=== PATIENT | female | born 1995 | race African-American/Black ===

== ENCOUNTER 2018-10-19 13:00 | Inpatient (IN) | payer OTHER, MEDICAID, SELFPAY ==
[2018-10-19] VITALS (15 sets, daily range): BP systolic 107–158; BP diastolic 55–106; PULSE 66–88; RESP 18–20; TEMP 36.2–36.8; O2SAT 99–100; BMI 18.8
[2018-10-19] MEDS: Lactated Ringers 1,000 ML 50 ML IV ×2 (12:50→20:40)
[2018-10-19] MEDS: Betamethasone/Betamethasone 30 MG/5 ML Vial 12 MG IM (13:04)
[2018-10-19] MEDS: Labetalol 20 MG/4 ML Vial IV (13:07)
[2018-10-19 13:10] LABS: Hematocrit 38.3 % (37-47); Hemoglobin 12.2 g/dl (12.0-15.0); Mean Corp Hgb Conc 31.9 g/gl (32-36); Mean Corpuscular Hgb 27.8 pg (27.0-32.0); Mean Corpuscular Volume 87.2 fL (81-99); Mean Platelet Vol. 11.7 fl (6.2-12.0); Platelet Count 182 K/mm3 (150-450); RBC Distribution Width CV 14.9 % (11.6-14.6); RBC Distribution Width SD 46.4 fl (35.1-43.9); Red Blood Count 4.39 M/mm3 (4.2-5.4); Scan Indicated on CBC? Y/N NO
[2018-10-19 13:20] LABS: International Normalized Ratio 0.9; Prothrombin Time (Protime)PT. 11.9 SECONDS (11.7-14.9)
[2018-10-19 13:21] LABS: Partial Thromboplast Time 33.2 Seconds (24.1-36.2)
[2018-10-19 13:32] LABS: AST(SGOT) 22 U/L (15-37); Alanine Aminotransfer ALT/SGPT 21 U/L (13-56); Creatinine, Serum 0.69 mg/dL (0.55-1.02); EST Glomerular Filtration Rate 113 mL/min (>60); Est Glom Filt Rate - Afr Amer 136 mL/min (>60); Uric Acid 4.2 mg/dL (2.6-6.0)
[2018-10-19] MEDS: Magnesium Sulfate 20 GM/500 ML BAG IV ×2 (13:48→23:28)
[2018-10-19] MEDS: proMETHazine 25 MG/ML Syringe 6.25 MG IV (14:26)
[2018-10-19] MEDS: HYDROmorphone 0.5 MG/0.5 ML SYRINGE IV (14:26)
[2018-10-19 14:57] LABS: Group B Strep DNA By PCR Negative (Negative); Internal Control PASS; Probe Check PASS; Specimen Processing Control PASS
--- NOTE | 2018-10-19 18:22 | PCM.HP.OB ---
History Date of Admission: 10/19/18 Final CHAVEZ: 11/22/18 Final CHAVEZ Source: US <20 weeks Gestational age: 35 Weeks and 1 Days History of this : This is a 23 year-old, at 35-1/7 weeks gestation presented from the office complaining of a headache since last night. It was ranging from 3-6 in intensity. In addition, she had persistently elevated blood pressures in the office. She was sent to labor and delivery for evaluation. She denies any vaginal bleeding or leaking of fluid. She has had good movements. Her past medical history is significant for migraine headaches, marijuana use early in , and an genital herpes, and an abnormal Pap smear. Allergies No Known Allergies Allergy (Verified 09/16/14 01:58) Home Medications: Home Medications Acetaminophen/Codeine #3 [Tylenol#3] 1 tablet PO Q6H PRN PRN #7 tablet 09/16/14 Acetaminophen/Butalbital/Caffe [Fioricet] 1 tablet PO Q4H PRN PRN 10/19/18 Amox/Clavulanate Tablet [Augmentin Tablet] 875 mg PO Q12H 10/19/18 Pnv No.95/Ferrous Fum/Folic AC [ Caplet] 10/19/18 Smoking Status: Never smoker Substance Use Type: Marijuana History Past Pregnancies: Past Pregnancies Delivery Date Name GA/Weeks Outcome Route Weight Infant Gender Labor Length Anesthesia Delivery Location Provider FOB Expected Infant Delivery Method: Spontaneous Vaginal Review of Systems Constitutional: Denies: Chills, Fever Eyes: Denies: Blurred vision HEENT: Reports: Head Aches - bilateral temporal Cardiovascular: Denies: Chest Pain, Edema Respiratory: Denies: Cough, Shortness of Breath Gastrointestinal: Denies: Abdominal Pain Genitourinary: Reports: - - denies vaginal pruritis or burning or recent HSV outbreak. Denies: Dysuria Skin: Denies: Rash Neurological: Denies: Blurred vision, Change in Speech Physical Exam Vitals: Vital Signs Pulse BP 79 131/81 H 10/19/18 16:26 10/19/18 16:26 General: Alert, Cooperative, - - Appears uncomfortable, holding her head when I first arrived in the room HEENT: Negative for: Normocephalic Abdomen: Soft, Non Tender, Non-Distended, Gravid, - - Small for gestational Extremities:: No edema, Deep tendon reflexes - 2+, one beat of clomus Neurological: Cranial nerves II-XII grossly intact Assessment/Plan This is a 23 year-old, 1 para 0 at 35-1/7 weeks gestation with severely elevated blood pressures Patient has a significant headache and severe hypertension, consistent with severe preeclampsia at 35 weeks gestation. Patient was given a dose of betamethasone and a rapid group B strep was collected. She was given IV medications to control her blood pressure followed by oral medications. She was started on magnesium for seizure prophylaxis. heart tones had a normal baseline but minimal variability for most the time she has been here. In addition she has had some variable decelerations and some scalloped-shaped decelerations not a associated with significant contractions. She was made to proceed with Sanders induction of labor. Procedure note: Earlier this afternoon a Sanders was placed over the stylette in the usual sterile fashion into the internal cervical loss. The balloon was inflated to 30 cc and the patient tolerated the procedure well. After the Sanders had been present for several hours, we are unable to initiate Pitocin because of the intermittent variables. Being that we could not reasonably start an induction of labor due to minimal variability and variable decelerations without any significant contractions, I discussed with the patient that I would recommend a section. section was recommended for persistent category 2 tracing remote from delivery with a very unfavorable cervix. Plan was discussed with the patient and her family, consent was signed and they agree with plan. Will remain on magnesium prophylaxis postoperatively and will need to monitor blood pressures closely.
[2018-10-19] MEDS: Cefazolin 2 GM in 0.9% Normal Saline 100 ML IV (18:45)
[2018-10-19] MEDS: Sodium Citrate/Citric Acid 30 ML UDC PO (18:45)
[2018-10-19] MEDS: Oxytocin 30 units/NS 500 ml 30 UNITS/500 ML IV.SOLN 167 UNITS IV (20:03)
--- NOTE | 2018-10-19 20:47 | PCM.OB.CSR ---
Delivery Classification: HANNA Final CHAVEZ: 11/22/18 Final CHAVEZ Source: US <20 weeks Gestational age: 35 Weeks and 1 Days Indications for : - - Severe preeclampsia, category 2 heart tracing remote from delivery Description of Procedure: pre-operative diagnosis: 35-week intrauterine , high risk primigravida, pre-eclampsia with severe features, category 2 heart tracing remote from delivery Postoperative diagnoses: Same plus IUGR The patient was taken to the operating room. She was prepped and draped in the dorsal supine position with a leftward tilt. A Pfannenstiel skin incision was made approximately 2 cm above the symphysis pubis and carried through to underlying layer fascia with the scalpel. The fascia was incised incised in the midline and extended laterally with the Jacobs scissors. The fascia was dissected off the rectus muscles with blunt and sharp dissection. The rectus muscles were in the midline and the peritoneum was entered bluntly. The peritoneal incision was stretched and the bladder blade was placed. The uterine incision was made in a low transverse fashion with the scalpel and extended superiorly and inferiorly with blunt dissection. The amniotic membranes were ruptured bluntly and lightly meconium-stained amniotic fluid returned. The 's head was brought to the incision in the flexed position and delivered without difficulty. The remainder of the was delivered with gentle traction and fundal pressure in the standard fashion. The mouth and nares were bulb suctioned. The cord was clamped and cut as the infant was stimulated. Cord clamping was only delayed 30 seconds because the had good tone and heart rate but was not initially crying vigorously. The was handed off to the waiting nursing staff. The placenta was delivered with fundal massage and gentle traction in the standard fashion. The uterus was exteriorized and cleared of all clots and debris. The cervix was dilated with a ring forcep. The uterine incision was closed with #1 Vicryl in a running locked fashion. A second layer of the same suture was used in an imbricating fashion. The incision was examined and was found to be hemostatic. The uterus was placed back into the peritoneal cavity and hemostasis was again confirmed. The rectus muscles were examined and any bleeding was Bovie cauterized. The parietal peritoneum and rectus muscles were closed en bloc with an 0 Vicryl running suture. The surgical teams outer gloves were then changed. The rectus fascia was examined and any bleeding was Bovie cauterized and the rectus fascia was closed with 1 Vicryl suture in a running standard fashion. The subcutaneous tissue was examining and any bleeding was Bovie cauterized. The skin was closed in a subcuticular fashion by the BRAKE LINER with me present in the labor and delivery suite. I performed the remainder of the procedure with assistance. All sponge, lap, and needle counts were correct. The patient was taken to her room for recovery in a stable condition. Amniotic Membrane Rupture Type: Artificial Amniotic Fluid Description: Lightly stained meconium Placenta Disposition: Sent with transport team Drain: Sanders to straight drain Cord Entanglement: None Cord Vessel Description: 3 Vessels Esitmated Blood Loss (ml): 700 Gender: Female Delayed cord clamping: Yes Pre-op Antibiotic Given: Ancef 2 grams IV x1 Complications: None - Admit VTE Documentation VTE Present on Admission: No VTE Mechan Device Prophylaxis: SCD's VTE Pharm Prophylaxis ordered?: Yes
--- NOTE | 2018-10-19 20:59 | OP.PCM_ITS ---
Delivery Classification: HANNA Final CHAVEZ: 11/22/18 Final CHAVEZ Source: US <20 weeks Gestational age: 35 Weeks and 1 Days Indications for : - - Severe preeclampsia, category 2 heart tracing remote from delivery Description of Procedure: pre-operative diagnosis: 35-week intrauterine , high risk primigravida, pre-eclampsia with severe features, category 2 heart tracing remote from delivery Postoperative diagnoses: Same plus IUGR The patient was taken to the operating room. She was prepped and draped in the dorsal supine position with a leftward tilt. A Pfannenstiel skin incision was made approximately 2 cm above the symphysis pubis and carried through to underlying layer fascia with the scalpel. The fascia was incised incised in the midline and extended laterally with the Jacobs scissors. The fascia was dissected off the rectus muscles with blunt and sharp dissection. The rectus muscles were in the midline and the peritoneum was entered bluntly. The peritoneal incision was stretched and the bladder blade was placed. The uterine incision was made in a low transverse fashion with the scalpel and extended superiorly and inferiorly with blunt dissection. The amniotic membranes were ruptured bluntly and lightly meconium-stained amniotic fluid returned. The 's head was brought to the incision in the flexed position and delivered without difficulty. The remainder of the was delivered with gentle traction and fundal pressure in the standard fashion. The mouth and nares were bulb suctioned. The cord was clamped and cut as the infant was stimulated. Cord clamping was only delayed 30 seconds because the had good tone and heart rate but was not initially crying vigorously. The was handed off to the waiting nursing staff. The placenta was delivered with fundal massage and gentle traction in the standard fashion. The uterus was exteriorized and cleared of all clots and debris. The cervix was dilated with a ring forcep. The uterine incision was closed with #1 Vicryl in a running locked fashion. A second layer of the same suture was used in an imbricating fashion. The incision was examined and was f ound to be hemostatic. The uterus was placed back into the peritoneal cavity and hemostasis was again confirmed. The rectus muscles were examined and any bleeding was Bovie cauterized. The parietal peritoneum and rectus muscles were closed en bloc with an 0 Vicryl running suture. The surgical teams outer gloves were then changed. The rectus fascia was examined and any bleeding was Bovie cauterized and the rectus fascia was closed with 1 Vicryl suture in a running standard fashion. The subcutaneous tissue was examining and any bleeding was Bovie cauterized. The skin was closed in a subcuticular fashion by the [employer] with me present in the labor and delivery suite. I performed the remainder of the procedure with assistance. All sponge, lap, and needle counts were correct. The patient was taken to her room for recovery in a stable condition. Amniotic Membrane Rupture Type: Artificial Amniotic Fluid Description: Lightly stained meconium Placenta Disposition: Sent with transport team Drain: Sanders to straight drain Cord Entanglement: None Cord Vessel Description: 3 Vessels Esitmated Blood Loss (ml): 700 Infant Gender: Female Delayed cord clamping: Yes Pre-op Antibiotic Given: Ancef 2 grams IV x1 Complications: None - Admit VTE Documentation VTE Present on Admission: No VTE Mechan Device Prophylaxis: SCD's VTE Pharm Prophylaxis ordered?: Yes
[2018-10-19] MEDS: Magnesium Sulfate 4gm/100mL 4 GM/100 ML IV.SOLN. IV (21:00)
[2018-10-19] MEDS: Ondansetron 4 MG/2 ML Vial IV (21:30)
[2018-10-19] MEDS: Senna/Docusate Sodium 1 Tablet PO (23:29)
[2018-10-20] VITALS (32 sets, daily range): BP systolic 89–130; BP diastolic 47–85; PULSE 64–78; RESP 14–18; TEMP 36.2–36.9; O2SAT 99–100
[2018-10-20] MEDS: Ketorolac 30 MG/ML Syringe IV ×4 (03:05→22:00)
[2018-10-20 05:27] LABS: Hemoglobin 9.2 g/dl (12.0-15.0); Mean Corp Hgb Conc 32.9 g/gl (32-36); Mean Corpuscular Hgb 28.3 pg (27.0-32.0); Mean Corpuscular Volume 86.2 fL (81-99); Mean Platelet Vol. 11.1 fl (6.2-12.0); Platelet Count 196 K/mm3 (150-450); RBC Distribution Width CV 15.1 % (11.6-14.6); RBC Distribution Width SD 47.7 fl (35.1-43.9); Red Blood Count 3.25 M/mm3 (4.2-5.4); White Blood Count 22.5 K/mm3 (4.4-11.0)
[2018-10-20 05:30] LABS: Scan Indicated on CBC? Y/N NO
[2018-10-20] MEDS: Enoxaparin 40 MG/0.4 ML Syringe SC (06:39)
[2018-10-20] MEDS: Lactated Ringers 1,000 ML 50 ML IV ×2 (09:11→18:25)
[2018-10-20] MEDS: Magnesium Sulfate 20 GM/500 ML BAG IV (09:12)
[2018-10-20] MEDS: Senna/Docusate Sodium 1 Tablet PO ×2 (09:13→22:24)
--- NOTE | 2018-10-20 10:51 | PCM.PN.OB ---
Subjective: pain well controlled, c/o NÚÑEZ but no visual changes. SHe states it feels like the migraines she gets when she is hungry. Denies N/V Now. Denies SOB/CP. - Physical Exam General: Alert, Cooperative, No apparent distress Abdomen: Soft, Non-Distended, Tender - appropriately Extremities: No edema, - - 1+DTRS, no clonus Skin: Incision - bandage w/ small amount sanguinous drainage approx 2 cm in diameter, marked by nursing to monitor Vital Signs Temp Pulse Resp BP Pulse Ox 97.2 F L 77 18 105/61 100 10/20/18 08:03 10/20/18 10:02 10/20/18 10:03 10/20/18 10:02 10/20/18 10:03 Oxygen Delivery Method Room Air Weight: 58.06 kg Body Mass Index (BMI) 18.8 Intake and Output for Last 24 Hours 10/18/18 10/19/18 10/20/18 23:59 23:59 23:59 Intake Total 1637 / 1637 1986 / 1986 Output Total 300 / 300 357 / 357 Balance 1337 / 1337 1630 / 1630 Laboratory Tests Past 24 Hrs 10/19/18 10/19/18 10/19/18 12:50 12:50 12:50 WBC 10.0 RBC 4.39 Hgb 12.2 Hct 38.3 MCV 87.2 MCH 27.8 MCHC 31.9 L RDW 14.9 H RDW Differential 46.4 H Plt Count 182 MPV 11.7 PT 11.9 INR 0.9 APTT 33.2 Creatinine 0.69 Est GFR (MDRD) Af Amer 136 Est GFR (MDRD) Non-Af 113 Uric Acid 4.2 AST 22 ALT 21 Group B Strep DNA Specimen Comment Blood Type Antibody Screen 10/19/18 10/19/18 10/20/18 12:50 13:50 05:03 WBC 22.5 H RBC 3.25 L Hgb 9.2 L Hct 28.0 L MCV 86.2 MCH 28.3 MCHC 32.9 RDW 15.1 H RDW Differential 47.7 H Plt Count 196 MPV 11.1 PT INR APTT Creatinine Est GFR (MDRD) Af Amer Est GFR (MDRD) Non-Af Uric Acid AST ALT Group B Strep DNA Negative Specimen Comment Not Reportable Blood Type O POSITIVE Antibody Screen NEGATIVE Medical Necessity - Tobacco Use Smoking Status: Never smoker Assessment/Plan POD#1 S/p primary c/s for 35-week with preeclampsia with severe features. Category 2 heart tracing remote from delivery. Severe IUGR. Since blood pressures are stabilized postoperatively. She is not requiring any meds at this time. We will continue magnesium until 24 hours after delivery. Patient will work on breast-feeding for the infant that is been transferred to [facility] due to low weight less than 1500 g. May advance diet.
--- NOTE | 2018-10-20 14:40 | NURSING ---
pt stood and marched in place at the edge of the bed. tolerated well.
--- NOTE | 2018-10-20 17:15 | NURSING ---
Dr Kitchen at bedside evaluating patient and low pressures and urine output. Plan to check CBC and give 1 Liter bolus.
--- NOTE | 2018-10-20 17:16 | PCM.PN.OB ---
Subjective: Patient denies complaints - Physical Exam General: Alert, Oriented x3 Abdomen: Soft - softly distended, appropriately tender, ff mid & below umb Vital Signs Temp Pulse Resp BP Pulse Ox 97.4 F L 75 18 89/47 L 99 10/20/18 16:00 10/20/18 17:03 10/20/18 17:03 10/20/18 17:03 10/20/18 17:03 Oxygen Delivery Method Room Air Weight: 128 lb Body Mass Index (BMI) 18.8 Intake and Output for Last 24 Hours 10/18/18 10/19/18 10/20/18 23:59 23:59 23:59 Intake Total 1637 / 1637 3333 / 3333 Output Total 300 / 300 567 / 567 Balance 1337 / 1337 2766 / 2766 Laboratory Tests Past 24 Hrs 10/20/18 05:03 WBC 22.5 H RBC 3.25 L Hgb 9.2 L Hct 28.0 L MCV 86.2 MCH 28.3 MCHC 32.9 RDW 15.1 H RDW Differential 47.7 H Plt Count 196 MPV 11.1 Medical Necessity - Tobacco Use Smoking Status: Never smoker Assessment/Plan PPD#1 with severe preE Hypotension - suspect dehydration & magnesium sulfate related. Will give 1L fluid bolus and check CBC.
[2018-10-20] MEDS: Lactated Ringers 1,000 ML 999 ML IV (17:20)
[2018-10-20 17:57] LABS: Hematocrit 18.3 % (37-47); Mean Corp Hgb Conc 31.1 g/gl (32-36); Mean Corpuscular Hgb 27.9 pg (27.0-32.0); Mean Corpuscular Volume 89.7 fL (81-99); Platelet Count 162 K/mm3 (150-450); RBC Distribution Width SD 46.1 fl (35.1-43.9); Red Blood Count 2.04 M/mm3 (4.2-5.4); White Blood Count 20.6 K/mm3 (4.4-11.0)
--- NOTE | 2018-10-20 18:00 | NURSING ---
Call placed to Dr Kitchen to inform of low HGB of 5.7. Order received to give 2 units of PRBCs.
[2018-10-20 18:02] LABS: Hemoglobin 5.7 g/dl (12.0-15.0); Scan Indicated on CBC? Y/N NO
--- NOTE | 2018-10-20 21:00 | NURSING ---
Pt assisted to sitting on side of bed, pt abd distended, tender, with hypoative BS. Pt has low bp when sitting up 81/51, pt burped mult times and reports some relief. Pt then assisted back into bed in semifowlers position and bp back up 111/69. 1st unit of blood continues to be infused.
[2018-10-21] VITALS (12 sets, daily range): BP systolic 109–130; BP diastolic 63–79; PULSE 76–110; RESP 14–20; TEMP 36.6–37.4; O2SAT 99–100; BMI 21.6
--- NOTE | 2018-10-21 01:35 | RAD_ITS ---
STUDY: X-RAY - ABDOMEN/PELVIS REASON FOR EXAM: Female, 23 years old. Abdominal distention. TECHNIQUE: Single AP view of the abdomen / pelvis. COMPARISON: None. FINDINGS: Normal visualized lung bases. There is a paralytic ileus of the small intestine with mild gaseous distention. There is no demonstrated free abdominal air. The visualized liver, spleen and kidneys are grossly normal in size and morphology. Normal soft tissue structures. Normal visualized osseous structures. RAD/Abdomen Single View (Portable) IMPRESSION: There is a paralytic ileus of the small intestine with mild gaseous distention. Electronically Signed: Namrata Anaya MD at 2:03 EST Tel , Service support ,
--- NOTE | 2018-10-21 01:36 | NURSING ---
dr shine called with concerns of more abd distension, hypoactive BS and reports of increased painincrease pain. cbc stat, KUB of abd, dilaudid x1.
--- NOTE | 2018-10-21 01:50 | NURSING ---
KUB performed at bedside
--- NOTE | 2018-10-21 02:15 | NURSING ---
Unable to obtain labs, lab dept called to draw.
[2018-10-21] MEDS: HYDROmorphone 0.5 MG/0.5 ML SYRINGE IV ×4 (02:20→20:09)
[2018-10-21] MEDS: Lactated Ringers 1,000 ML 75 ML IV (02:21)
--- NOTE | 2018-10-21 02:27 | NURSING ---
Lab dept here to draw blood.
[2018-10-21 02:40] LABS: Hematocrit 23.3 % (37-47); Hemoglobin 7.8 g/dl (12.0-15.0); Mean Corp Hgb Conc 33.5 g/gl (32-36); Mean Corpuscular Hgb 29.2 pg (27.0-32.0); Mean Corpuscular Volume 87.3 fL (81-99); Mean Platelet Vol. 11.1 fl (6.2-12.0); Platelet Count 150 K/mm3 (150-450); RBC Distribution Width CV 14.6 % (11.6-14.6); RBC Distribution Width SD 45.8 fl (35.1-43.9); Red Blood Count 2.67 M/mm3 (4.2-5.4); Scan Indicated on CBC? Y/N NO; White Blood Count 21.9 K/mm3 (4.4-11.0)
[2018-10-21 02:59] LABS: ALB/GLOB Ratio 0.7 RATIO (0.9-2.4); AST(SGOT) 26 U/L (15-37); Alanine Aminotransfer ALT/SGPT 15 U/L (13-56); Alkaline Phosphatase 147 U/L (45-117); Anion Gap 8 (5-15); BUN 20 mg/dL (7-18); BUN/Creat Ratio 20.5 RATIO (10-20); Calcium,Total 5.9 mg/dL (8.5-10.1); Chloride 99 mmol/L (98-107); Creatinine, Serum 0.98 mg/dL (0.55-1.02); EST Glomerular Filtration Rate 76 mL/min (>60); Est Glom Filt Rate - Afr Amer 92 mL/min (>60); Estimated Creatinine Clearance 83.23 ml/min; Globulin 2.8 g/dL (2.2-4.2); Glucose 110 mg/dL (74-106); Potassium 5.5 mmol/L (3.5-5.1); Protein, Total 4.8 g/dL (6.4-8.2); Sodium Level 127 mmol/L (136-145)
[2018-10-21] MEDS: Ketorolac 30 MG/ML Syringe IV ×3 (03:49→15:46)
[2018-10-21] MEDS: 0.9% Normal Saline 1,000 ML 125 ML IV ×3 (03:49→20:09)
--- NOTE | 2018-10-21 04:33 | EKG12_ITS ---
Test Reason : HYPERKALEMIA Blood Pressure : / mmHG Vent. Rate : 082 BPM Atrial Rate : 082 BPM P-R Int : 158 ms QRS Dur : 072 ms QT Int : 384 ms P-R-T Axes : 063 025 026 degrees QTc Int : 448 ms Normal sinus rhythm Normal ECG No previous ECGs available Confirmed by YUSUF BROWN, BABAR ([id number]), news editor REJI CORRAL ([id number]) on 10/27/2018 1:14:10 PM Referred By: Lucy Valenzuela Confirmed By:BABAR GOLDBERG MD
--- NOTE | 2018-10-21 04:36 | PCM.PN.HOSP ---
Subjective: This is a 23-year-old female who is 32 hours post . Her was complicated with preeclampsia. Also patient had hemoglobin of 5.7 for which she received packed red blood cells. Because of electrolyte abnormalities internal medicine service was consulted. Notably patient's sodium was 127 for which CIVILIAN JAIL OFFICER started patient on normal saline at 125 mL's per hour. Her potassium was 5.5. Her calcium was 5.9. Her bicarbonate was 20. Vitals/I&O's: Vital Signs Temp Pulse Resp BP Pulse Ox 98 F 80 20 H 110/69 100 10/21/18 02:04 10/21/18 02:04 10/21/18 02:04 10/21/18 02:04 10/20/18 23:50 Oxygen Delivery Method Room Air Weight: 58.06 kg Body Mass Index (BMI) 18.8 Intake and Output for Last 24 Hours 10/19/18 10/20/18 10/21/18 23:59 23:59 23:59 Intake Total 1637 / 1637 5678 / 5678 850 / 850 Output Total 300 / 300 874 / 874 120 / 120 Balance 1337 / 1337 4804 / 4804 730 / 730 General: Alert, Oriented x3, Cooperative HEENT: Atraumatic, PERRLA, EOMI, Normocephalic Neck: Supple, No JVD, Negative Carotid Bruits Lungs: Clear to auscultation, Normal air movement Cardiovascular: Regular rate, No murmurs Abdomen: Hypoactive Bowel Sounds, Distended, Tender Extremities: No edema, Capillary Refill Less than 3 Seconds Skin: No rashes, No breakdown Musculoskeletal: No Tenderness to Palpation of Joints or Extremities Neurological: Neuro grossly intact Psych/Mental Status: Normal Affect, Appropriate Laboratory Results 10/19/18 12:50: Crossmatch See Detail 10/20/18 05:03: WBC 22.5 H, RBC 3.25 L, Hgb 9.2 L, Hct 28.0 L, MCV 86.2, MCH 28.3, MCHC 32.9, RDW 15.1 H, RDW Differential 47.7 H, Plt Count 196, MPV 11.1 10/20/18 17:25: WBC 20.6 H, RBC 2.04 L, Hgb 5.7 L*, Hct 18.3 L, MCV 89.7, MCH 27.9, MCHC 31.1 L, RDW 15.0 H, RDW Differential 46.1 H, Plt Count 162, MPV 11.0 10/21/18 02:30: WBC 21.9 H, RBC 2.67 L, Hgb 7.8 L, Hct 23.3 L, MCV 87.3, MCH 29.2, MCHC 33.5, RDW 14.6, RDW Differential 45.8 H, Plt Count 150, MPV 11.1 10/21/18 02:30: Sodium 127 L, Potassium 5.5 H, Chloride 99, Carbon Dioxide 20.0 L, Anion Gap 8, BUN 20 H, Creatinine 0.98, Estim Creat Clear Calc 83.23, Est GFR (MDRD) Af Amer 92, Est GFR (MDRD) Non-Af 76, BUN/Creatinine Ratio 20.5 H, Glucose 110 H, Calcium 5.9 L*, Total Bilirubin 0.50, AST 26, ALT 15, Alkaline Phosphatase 147 H, Total Protein 4.8 L, Albumin 2.0 L, Globulin 2.8, Albumin/Globulin Ratio 0.7 L Current Medications Acetaminophen (Tylenol) 1,000 mg PO Q8H PRN PRN PRN Reason: MILD PAIN (1-3/10) Bisacodyl (Dulcolax) 10 mg RECTAL UD PRN PRN Reason: If no BM Docusate Sodium (Colace) 100 mg PO BID [facility] Last Admin: 10/20/18 22:20 Dose: Not Given Enoxaparin Sodium (Lovenox) 40 mg SC DAILY@0600 [facility] Last Admin: 10/20/18 06:39 Dose: 40 mg Hydrocortisone (Hytone) 1 applic TOPICAL TID PRN PRN; Protocol PRN Reason: Discomfort Hydromorphone HCl (Dilaudid Inj) 0.5 mg IV Q3H PRN PRN PRN Reason: SEVERE PAIN (6-10/10) Sodium Chloride () 500 mls @ 15 mls/hr IV .[id number] [facility] Last Admin: 10/20/18 19:15 Dose: 15 mls/hr Sodium Chloride () 1,000 mls @ 125 mls/hr IV .Q8H [facility] Last Admin: 10/21/18 03:49 Dose: 125 mls/hr Calcium Gluconate 2 gm/ (Dextrose) 120 mls @ 60 mls/hr IV X1 ONE Stop: 10/21/18 06:31 Ketorolac Tromethamine (Toradol) 30 mg IV Q6H [facility] Stop: 10/21/18 21:01 Last Admin: 10/21/18 03:49 Dose: 30 mg Methylergonovine Maleate (Methergine) 0.2 mg IM X1 PRN PRN Reason: Bleeding Metoclopramide HCl (Reglan) 10 mg IV Q4H PRN PRN PRN Reason: Nausea/Vomiting Naproxen (Naprosyn) 250 - 500 mg PO Q8H PRN PRN PRN Reason: Mild Pain (1-3/10) Ondansetron HCl (Zofran) 4 mg IV Q4H PRN PRN PRN Reason: Nausea Last Admin: 10/19/18 21:30 Dose: 4 mg Oxycodone HCl (Oxyir) 5 - 10 mg PO Q4H PRN PRN PRN Reason: MOD-SEVERE PAIN (4-10/10) Promethazine HCl (Phenergan) 12.5 mg IV Q4H PRN PRN PRN Reason: NAUSEA/VOMITING Senna/Docusate Sodium (Senokot-S, Tracie-Colace) 1 tablet PO BID [facility] Last Admin: 10/20/18 22:24 Dose: 1 tablet Simethicone (Mylicon) 80 mg PO P[facility]S PRN PRN Reason: Indigestion/stomach pain Last Admin: 10/20/18 14:10 Dose: 80 mg Sodium Bicarbonate (Sodium Bicarbonate 8.4%) 50 meq IV X1 ONE Stop: 10/21/18 04:33 Sodium Chloride () 5 - 15 ml IV UD PRN PRN Reason: SALINE FLUSH Medical Necessity - Tobacco Use Smoking Status: Never smoker Assessment/Plan Patient is a 23-year-old female 32 hours with electrolyte abnormalities; anemia and paralytic ileus. Hyponatremia Sodium is 127. Patient appears euvolemic. We will check osmolality of urine and serum Urine sodium, serum cortisol and TSH ordered. Continue normal saline infusion at 125 mLs per hour. Correct sodium by 8-10 mEq in 24 hours. Repeat BMP at noon of 10/21/2018. Hyperkalemia Potassium was 5.5. Will order 50meq of bicarbonate especially as her bicarbonate is mildly low. Stat EKG Calcium gluconate ordered for hypocalcemia but should help Repeat BMP as above Hypocalcemia Her calcium was 5.9. Albumin is 2.0. Corrected for albumin and calcium is 7.5. Calcium gluconate ordered. Discussed with CIVILIAN JAIL OFFICER doctor. Patient be transferred to PCU for telemetry monitoring. Repeat BMP as above. Anemia Received blood transfusion. Management by OB. Paralytic ileus n.p.o. and NG tube per OBGYN. I agree. DVT prophylaxis Patient on Lovenox Code Visit Inpatient E&M: 43150 Subs Hosp L3
--- NOTE | 2018-10-21 04:40 | PN_ITS ---
Subjective: This is a 23-year-old female who is 32 hours post . Her was complicated with preeclampsia. Also patient had hemoglobin of 5.7 for which she received packed red blood cells. Because of electrolyte abnormalities internal medicine service was consulted. Notably patient's sodium was 127 for which CRANE MANAGER started patient on normal saline at 125 mL's per hour. Her potassium was 5.5. Her calcium was 5.9. Her bicarbonate was 20. Vitals/I&O's: Vital Signs Temp Pulse Resp BP Pulse Ox 98 F 80 20 H 110/69 100 10/21/18 02:04 10/21/18 02:04 10/21/18 02:04 10/21/18 02:04 10/20/18 23:50 Oxygen Delivery Method Room Air Weight: 58.06 kg Body Mass Index (BMI) 18.8 Intake and Output for Last 24 Hours 10/19/18 10/20/18 10/21/18 23:59 23:59 23:59 Intake Total 1637 / 1637 5678 / 5678 850 / 850 Output Total 300 / 300 874 / 874 120 / 120 Balance 1337 / 1337 4804 / 4804 730 / 730 General: Alert, Oriented x3, Cooperative HEENT: Atraumatic, PERRLA, EOMI, Normocephalic Neck: Supple, No JVD, Negative Carotid Bruits Lungs: Clear to auscultation, Normal air movement Cardiovascular: Regular rate, No murmurs Abdomen: Hypoactive Bowel Sounds, Distended, Tender Extremities: No edema, Capillary Refill Less than 3 Seconds Skin: No rashes, No breakdown Musculoskeletal: No Tenderness to Palpation of Joints or Extremities Neurological: Neuro grossly intact Psych/Mental Status: Normal Affect, Appropriate Laboratory Results 10/19/18 12:50: Crossmatch See Detail 10/20/18 05:03: WBC 22.5 H, RBC 3.25 L, Hgb 9.2 L, Hct 28.0 L, MCV 86.2, MCH 28.3, MCHC 32.9, RDW 15.1 H, RDW Differential 47.7 H, Plt Count 196, MPV 11.1 10/20/18 17:25: WBC 20.6 H, RBC 2.04 L, Hgb 5.7 L*, Hct 18.3 L, MCV 89.7, MCH 27.9, MCHC 31.1 L, RDW 15.0 H, RDW Differential 46.1 H, Plt Count 162, MPV 11.0 10/21/18 02:30: WBC 21.9 H, RBC 2.67 L, Hgb 7.8 L, Hct 23.3 L, MCV 87.3, MCH 29.2, MCHC 33.5, RDW 14.6, RDW Differential 45.8 H, Plt Count 150, MPV 11.1 10/21/18 02:30: Sodium 127 L, Potassium 5.5 H, Chloride 99, Carbon Dioxide 20.0 L, Anion Gap 8, BUN 20 H, Creatinine 0.98, Estim Creat Clear Calc 83.23, Est GFR (MDRD) Af Amer 92, Est GFR (MDRD) Non-Af 76, BUN/Creatinine Ratio 20.5 H, Glucose 110 H, Calcium 5.9 L*, Total Bilirubin 0.50, AST 26, ALT 15, Alkaline Phosphatase 147 H, Total Protein 4.8 L, Albumin 2.0 L, Globulin 2.8, Albumin/Globulin Ratio 0.7 L Current Medications Acetaminophen (Tylenol) 1,000 mg PO Q8H PRN PRN PRN Reason: MILD PAIN (1-3/10) Bisacodyl (Dulcolax) 10 mg RECTAL UD PRN PRN Reason: If no BM Docusate Sodium (Colace) 100 mg PO BID [facility] Last Admin: 10/20/18 22:20 Dose: Not Given Enoxaparin Sodium (Lovenox) 40 mg SC DAILY@0600 [facility] Last Admin: 10/20/18 06:39 Dose: 40 mg Hydrocortisone (Hytone) 1 applic TOPICAL TID PRN PRN; Protocol PRN Reason: Discomfort Hydromorphone HCl (Dilaudid Inj) 0.5 mg IV Q3H PRN PRN PRN Reason: SEVERE PAIN (6-10/10) Sodium Chloride () 500 mls @ 15 mls/hr IV .[id number] [facility] Last Admin: 10/20/18 19:15 Dose: 15 mls/hr Sodium Chloride () 1,000 mls @ 125 mls/hr IV .Q8H [facility] Last Admin: 10/21/18 03:49 Dose: 125 mls/hr Calcium Gluconate 2 gm/ (Dextrose) 120 mls @ 60 mls/hr IV X1 ONE Stop: 10/21/18 06:31 Ketorolac Tromethamine (Toradol) 30 mg IV Q6H [facility] Stop: 10/21/18 21:01 Last Admin: 10/21/18 03:49 Dose: 30 mg Methylergonovine Maleate (Methergine) 0.2 mg IM X1 PRN PRN Reason: Bleeding Metoclopramide HCl (Reglan) 10 mg IV Q4H PRN PRN PRN Reason: Nausea/Vomiting Naproxen (Naprosyn) 250 - 500 mg PO Q8H PRN PRN PRN Reason: Mild Pain (1-3/10) Ondansetron HCl (Zofran) 4 mg IV Q4H PRN PRN PRN Reason: Nausea Last Admin: 10/19/18 21:30 Dose: 4 mg Oxycodone HCl (Oxyir) 5 - 10 mg PO Q4H PRN PRN PRN Reason: MOD-SEVERE PAIN (4-10/10) Promethazine HCl (Phenergan) 12.5 mg IV Q4H PRN PRN PRN Reason: NAUSEA/VOMITING Senna/Docusate Sodium (Senokot-S, Tracie-Colace) 1 tablet PO BID [facility] Last Admin: 10/20/18 22:24 Dose: 1 tablet Simethicone (Mylicon) 80 mg PO PCHS PRN PRN Reason: Indigestion/stomach pain Last Admin: 10/20/18 14:10 Dose: 80 mg Sodium Bicarbonate (Sodium Bicarbonate 8.4%) 50 meq IV X1 ONE Stop: 10/21/18 04:33 Sodium Chloride () 5 - 15 ml IV UD PRN PRN Reason: SALINE FLUSH Medical Necessity - Tobacco Use Smoking Status: Never smoker Assessment/Plan Patient is a 23-year-old female 32 hours with electrolyte abnormalities; anemia and paralytic ileus. Hyponatremia Sodium is 127. Patient appears euvolemic. We will check osmolality of urine and serum Urine sodium, serum cortisol and TSH ordered. Continue normal saline infusion at 125 mLs per hour. Correct sodium by 8-10 mEq in 24 hours. Repeat BMP at noon of 10/21/2018. Hyperkalemia Potassium was 5.5. Will order 50meq of bicarbonate especially as her bicarbonate is mildly low. Stat EKG Calcium gluconate ordered for hypocalcemia but should help Repeat BMP as above Hypocalcemia Her calcium was 5.9. Albumin is 2.0. Corrected for albumin and calcium is 7.5. Calcium gluconate ordered. Discussed with CRANE MANAGER doctor. Patient be transferred to PCU for telemetry monitoring. Repeat BMP as above. Anemia Received blood transfusion. Management by OB. Paralytic ileus n.p.o. and NG tube per OBGYN. I agree. DVT prophylaxis Patient on Lovenox Code Visit Inpatient E&M: 60214 Subs Hosp L3
--- NOTE | 2018-10-21 05:13 | PCM.PN.OB ---
Subjective: Patient reports abdominal discomfort. No flatus. - Physical Exam General: Alert, Oriented x3 Abdomen: Hypoactive Bowel Sounds - minimal bowel sounds, abdomen with increased distension but remains soft & appropriately tender; no rebound or guarding Extremities: No edema, No Calf Tenderness, Diminished Peripheral Pulses Psych/Mental Status: Normal Affect Vital Signs Temp Pulse Resp BP Pulse Ox 98.1 F 78 18 109/64 100 10/21/18 05:11 10/21/18 05:11 10/21/18 05:11 10/21/18 05:11 10/21/18 05:11 Oxygen Delivery Method Room Air Weight: 128 lb Body Mass Index (BMI) 18.8 Intake and Output for Last 24 Hours 10/19/18 10/20/18 10/21/18 23:59 23:59 23:59 Intake Total 1637 / 1637 5678 / 5678 1133 / 1133 Output Total 300 / 300 874 / 874 180 / 180 Balance 1337 / 1337 4804 / 4804 953 / 953 Laboratory Tests Past 24 Hrs 10/19/18 10/20/18 10/20/18 12:50 05:03 17:25 WBC 22.5 H 20.6 H RBC 3.25 L 2.04 L Hgb 9.2 L 5.7 L* Hct 28.0 L 18.3 L MCV 86.2 89.7 MCH 28.3 27.9 MCHC 32.9 31.1 L RDW 15.1 H 15.0 H RDW Differential 47.7 H 46.1 H Plt Count 196 162 MPV 11.1 11.0 Sodium Potassium Chloride Carbon Dioxide Anion Gap BUN Creatinine Estim Creat Clear Calc Est GFR (MDRD) Af Amer Est GFR (MDRD) Non-Af BUN/Creatinine Ratio Glucose Calcium Total Bilirubin AST ALT Alkaline Phosphatase Total Protein Albumin Globulin Albumin/Globulin Ratio Crossmatch See Detail 10/21/18 10/21/18 02:30 02:30 WBC 21.9 H RBC 2.67 L Hgb 7.8 L Hct 23.3 L MCV 87.3 MCH 29.2 MCHC 33.5 RDW 14.6 RDW Differential 45.8 H Plt Count 150 MPV 11.1 Sodium 127 L Potassium 5.5 H Chloride 99 Carbon Dioxide 20.0 L Anion Gap 8 BUN 20 H Creatinine 0.98 Estim Creat Clear Calc 83.23 Est GFR (MDRD) Af Amer 92 Est GFR (MDRD) Non-Af 76 BUN/Creatinine Ratio 20.5 H Glucose 110 H Calcium 5.9 L* Total Bilirubin 0.50 AST 26 ALT 15 Alkaline Phosphatase 147 H Total Protein 4.8 L Albumin 2.0 L Globulin 2.8 Albumin/Globulin Ratio 0.7 L Crossmatch Medical Necessity - Tobacco Use Smoking Status: Never smoker Assessment/Plan 23yo female POD#2 Severe preE - s/p Mg, BP's normal. Heme - HDS, appropriate Hb increase s/p 2 units PRBC's. - UOP at least 30ml per hour. GI - ileus confirmed on KUB. Plan for NG placement. Electrolytes - consulted for hyponatremia, hyperkalemia & hypocalcemia. Patient switched to NS. Transferring patient to PCU to administer sodium bicarbonate & calcium gluconate. Additional labs ordered by . Plan of care discussed with patient.
--- NOTE | 2018-10-21 05:20 | NURSING ---
Cartoon Animator gives bed assignment of [facility] 121
--- NOTE | 2018-10-21 05:35 | NURSING ---
Called PCU to give report on pt, PCU charge nurse states that PCU nurse will call back for report.
--- NOTE | 2018-10-21 05:54 | NURSING ---
report given to Aniya DENTON
[2018-10-21] MEDS: Enoxaparin 40 MG/0.4 ML Syringe SC (06:01)
--- NOTE | 2018-10-21 06:10 | NURSING ---
Pt transfered to PCU 121 via bed with nurse. Pt's mother present during transfer.
--- NOTE | 2018-10-21 06:15 | NURSING ---
This RN taking over patient care at this time
[2018-10-21 06:20] LABS: Thyroid Stim Hormone (TSH) 3.01 uIU/mL (0.358-3.74)
--- NOTE | 2018-10-21 06:23 | RAD_ITS ---
STUDY: X-RAY - ABDOMEN/PELVIS REASON FOR EXAM: Female, 23 years old. Nasogastric tube placement. TECHNIQUE: Single AP view of the abdomen / pelvis. COMPARISON: Comparison is made with prior examination done earlier today. FINDINGS: Nasogastric tube is in situ. The tip lies in the left upper quadrant presumably within the stomach. There is less gaseous distention of the stomach at this time. The visualized liver, spleen and kidneys are grossly normal in size and morphology. Normal soft tissue structures. Normal visualized osseous structures. RAD/Abdomen Single View IMPRESSION: The tip of the nasogastric tube is within the left upper quadrant presumably within the body of the stomach. Electronically Signed: Fawad Lopez MD at 8:31 EST , Service support ,
[2018-10-21] MEDS: 0.9% Saline Lock 10 ML Syringe IV (06:53)
[2018-10-21] MEDS: Sodium Bicarbonate 8.4% 50 ML Syringe 50 MEQ IV (07:09)
[2018-10-21 07:51] LABS: Osmolality, Serum 272 mOsm/KG (275-295)
--- NOTE | 2018-10-21 09:53 | NURSING ---
0935 abd firm unable to palpate deep enough to locate fundus; lochia scant; pt has all supplies to pump- pump set up and explained to pt and pts mother. pt does not want to pump at this time.
[2018-10-21 09:58] LABS: Urine Sodium 8 mmol/L (Not Establ.)
[2018-10-21 10:04] LABS: Osmolality, Urine 341 mOsm/KG
--- NOTE | 2018-10-21 12:12 | PCM.PN.HOSP ---
Patient Problems: Active and Suspected Problems Hypocalcemia (Acute) Hyperkalemia (Acute) Hyponatremia (Acute) Ileus (Acute) Acute blood loss anemia (Acute) Subjective: Denies any complaints. Vitals/I&O's: Vital Signs Temp Pulse Resp BP Pulse Ox 36.8 C 76 14 118/63 100 10/21/18 10:30 10/21/18 10:30 10/21/18 10:30 10/21/18 10:30 10/21/18 10:30 Oxygen Delivery Method Room Air Weight: 66.5 kg Body Mass Index (BMI) 21.6 Intake and Output for Last 24 Hours 10/19/18 10/20/18 10/21/18 23:59 23:59 23:59 Intake Total 1637 / 1637 5678 / 5678 1133 / 1133 Output Total 300 / 300 874 / 874 180 / 180 Balance 1337 / 1337 4804 / 4804 953 / 953 General: Alert, No apparent distress HEENT: Atraumatic, Normocephalic, - - NG in place. Neck: No Nodes, Thyroid Normal Size and Texture Lungs: Clear to auscultation, Normal air movement, No rhonchi, No wheeze Cardiovascular: Regular rate, Regular Rhythm, Normal S1, Normal S2, No murmurs Abdomen: Non Tender, Hypoactive Bowel Sounds, Distended Extremities: No edema, No Calf Tenderness Psych/Mental Status: Appropriate, Flat Affect Laboratory Results 10/19/18 12:50: Crossmatch See Detail 10/20/18 17:25: WBC 20.6 H, RBC 2.04 L, Hgb 5.7 L*, Hct 18.3 L, MCV 89.7, MCH 27.9, MCHC 31.1 L, RDW 15.0 H, RDW Differential 46.1 H, Plt Count 162, MPV 11.0 10/21/18 02:30: WBC 21.9 H, RBC 2.67 L, Hgb 7.8 L, Hct 23.3 L, MCV 87.3, MCH 29.2, MCHC 33.5, RDW 14.6, RDW Differential 45.8 H, Plt Count 150, MPV 11.1 10/21/18 02:30: Sodium 127 L, Potassium 5.5 H, Chloride 99, Carbon Dioxide 20.0 L, Anion Gap 8, BUN 20 H, Creatinine 0.98, Estim Creat Clear Calc 83.23, Est GFR (MDRD) Af Amer 92, Est GFR (MDRD) Non-Af 76, BUN/Creatinine Ratio 20.5 H, Glucose 110 H, Calcium 5.9 L*, Total Bilirubin 0.50, AST 26, ALT 15, Alkaline Phosphatase 147 H, Total Protein 4.8 L, Albumin 2.0 L, Globulin 2.8, Albumin/Globulin Ratio 0.7 L 10/21/18 02:30: TSH 3.01 10/21/18 07:10: Cortisol 23.40 H 10/21/18 07:10: Serum Osmolality 272 L 10/21/18 09:35: Ur Random Sodium 8 10/21/18 09:35: Urine Osmolality 341 10/21/18 12:00: Sodium Pending, Potassium Pending, Chloride Pending, Carbon Dioxide Pending, Anion Gap Pending, BUN Pending, Creatinine Pending, Est GFR (MDRD) Af Amer Pending, Est GFR (MDRD) Non-Af Pending, BUN/Creatinine Ratio Pending, Glucose Pending, Calcium Pending Current Medications Acetaminophen (Tylenol) 1,000 mg PO Q8H PRN PRN PRN Reason: MILD PAIN (1-3/10) Bisacodyl (Dulcolax) 10 mg RECTAL UD PRN PRN Reason: If no BM Docusate Sodium (Colace) 100 mg PO BID [facility] Last Admin: 10/21/18 10:24 Dose: Not Given Enoxaparin Sodium (Lovenox) 40 mg SC DAILY@0600 [facility] Last Admin: 10/21/18 06:01 Dose: 40 mg Hydrocortisone (Hytone) 1 applic TOPICAL TID PRN PRN; Protocol PRN Reason: Discomfort Hydromorphone HCl (Dilaudid Inj) 0.5 mg IV Q3H PRN PRN PRN Reason: SEVERE PAIN (6-10/10) Last Admin: 10/21/18 11:27 Dose: 0.5 mg Sodium Chloride () 500 mls @ 15 mls/hr IV .[id number] [facility] Last Admin: 10/20/18 19:15 Dose: 15 mls/hr Sodium Chloride () 1,000 mls @ 125 mls/hr IV .Q8H [facility] Last Admin: 10/21/18 03:49 Dose: 125 mls/hr Ketorolac Tromethamine (Toradol) 30 mg IV Q6H [facility] Stop: 10/21/18 21:01 Last Admin: 10/21/18 09:13 Dose: 30 mg Methylergonovine Maleate (Methergine) 0.2 mg IM X1 PRN PRN Reason: Bleeding Metoclopramide HCl (Reglan) 10 mg IV Q4H PRN PRN PRN Reason: Nausea/Vomiting Naproxen (Naprosyn) 250 - 500 mg PO Q8H PRN PRN PRN Reason: Mild Pain (1-3/10) Ondansetron HCl (Zofran) 4 mg IV Q4H PRN PRN PRN Reason: Nausea Last Admin: 10/19/18 21:30 Dose: 4 mg Oxycodone HCl (Oxyir) 5 - 10 mg PO Q4H PRN PRN PRN Reason: MOD-SEVERE PAIN (4-10/10) Promethazine HCl (Phenergan) 12.5 mg IV Q4H PRN PRN PRN Reason: NAUSEA/VOMITING Senna/Docusate Sodium (Senokot-S, Tracie-Colace) 1 tablet PO BID [facility] Last Admin: 10/21/18 10:24 Dose: Not Given Simethicone (Mylicon) 80 mg PO PCHS PRN PRN Reason: Indigestion/stomach pain Last Admin: 10/20/18 14:10 Dose: 80 mg Sodium Chloride () 5 - 15 ml IV UD PRN PRN Reason: SALINE FLUSH Last Admin: 10/21/18 06:53 Dose: 10 ml Sodium Chloride () 5 - 15 ml IV UD PRN PRN Reason: SALINE FLUSH Medical Necessity - Tobacco Use Smoking Status: Never smoker Assessment/Plan All Active Problems Hypocalcemia (Acute) Hyperkalemia (Acute) Hyponatremia (Acute) Ileus (Acute) Acute blood loss anemia (Acute) 1. Hypocalcemia s/p Calcium gluconate (required to be in PCU for this) Follow up labs 2. Hyperkalemia no hemolysis follow up labs 3. Hyponatremia maybe due to IVF now on NS recheck 4. Ileus shashank post-op Primary team managing. 5. Preeclampsia resolved s/p C-sxn on 10/19 OB managing 6. Acute blood loss anemia 12.2 to 5.7 Improved to 7.8 after 2 units PRBCs 7. DVT proph: LMWH.
--- NOTE | 2018-10-21 12:18 | PN_ITS ---
Patient Problems: Active and Suspected Problems Hypocalcemia (Acute) Hyperkalemia (Acute) Hyponatremia (Acute) Ileus (Acute) Acute blood loss anemia (Acute) Subjective: Denies any complaints. Vitals/I&O's: Vital Signs Temp Pulse Resp BP Pulse Ox 36.8 C 76 14 118/63 100 10/21/18 10:30 10/21/18 10:30 10/21/18 10:30 10/21/18 10:30 10/21/18 10:30 Oxygen Delivery Method Room Air Weight: 66.5 kg Body Mass Index (BMI) 21.6 Intake and Output for Last 24 Hours 10/19/18 10/20/18 10/21/18 23:59 23:59 23:59 Intake Total 1637 / 1637 5678 / 5678 1133 / 1133 Output Total 300 / 300 874 / 874 180 / 180 Balance 1337 / 1337 4804 / 4804 953 / 953 General: Alert, No apparent distress HEENT: Atraumatic, Normocephalic, - - NG in place. Neck: No Nodes, Thyroid Normal Size and Texture Lungs: Clear to auscultation, Normal air movement, No rhonchi, No wheeze Cardiovascular: Regular rate, Regular Rhythm, Normal S1, Normal S2, No murmurs Abdomen: Non Tender, Hypoactive Bowel Sounds, Distended Extremities: No edema, No Calf Tenderness Psych/Mental Status: Appropriate, Flat Affect Laboratory Results 10/19/18 12:50: Crossmatch See Detail 10/20/18 17:25: WBC 20.6 H, RBC 2.04 L, Hgb 5.7 L*, Hct 18.3 L, MCV 89.7, MCH 27.9, MCHC 31.1 L, RDW 15.0 H, RDW Differential 46.1 H, Plt Count 162, MPV 11.0 10/21/18 02:30: WBC 21.9 H, RBC 2.67 L, Hgb 7.8 L, Hct 23.3 L, MCV 87.3, MCH 29.2, MCHC 33.5, RDW 14.6, RDW Differential 45.8 H, Plt Count 150, MPV 11.1 10/21/18 02:30: Sodium 127 L, Potassium 5.5 H, Chloride 99, Carbon Dioxide 20.0 L, Anion Gap 8, BUN 20 H, Creatinine 0.98, Estim Creat Clear Calc 83.23, Est GFR (MDRD) Af Amer 92, Est GFR (MDRD) Non-Af 76, BUN/Creatinine Ratio 20.5 H, Glucose 110 H, Calcium 5.9 L*, Total Bilirubin 0.50, AST 26, ALT 15, Alkaline Phosphatase 147 H, Total Protein 4.8 L, Albumin 2.0 L, Globulin 2.8, Albumin/Globulin Ratio 0.7 L 10/21/18 02:30: TSH 3.01 10/21/18 07:10: Cortisol 23.40 H 10/21/18 07:10: Serum Osmolality 272 L 10/21/18 09:35: Ur Random Sodium 8 10/21/18 09:35: Urine Osmolality 341 10/21/18 12:00: Sodium Pending, Potassium Pending, Chloride Pending, Carbon Dioxide Pending, Anion Gap Pending, BUN Pending, Creatinine Pending, Est GFR (MDRD) Af Amer Pending, Est GFR (MDRD) Non-Af Pending, BUN/Creatinine Ratio Pending, Glucose Pending, Calcium Pending Current Medications Acetaminophen (Tylenol) 1,000 mg PO Q8H PRN PRN PRN Reason: MILD PAIN (1-3/10) Bisacodyl (Dulcolax) 10 mg RECTAL UD PRN PRN Reason: If no BM Docusate Sodium (Colace) 100 mg PO BID [facility] Last Admin: 10/21/18 10:24 Dose: Not Given Enoxaparin Sodium (Lovenox) 40 mg SC DAILY@0600 [facility] Last Admin: 10/21/18 06:01 Dose: 40 mg Hydrocortisone (Hytone) 1 applic TOPICAL TID PRN PRN; Protocol PRN Reason: Discomfort Hydromorphone HCl (Dilaudid Inj) 0.5 mg IV Q3H PRN PRN PRN Reason: SEVERE PAIN (6-10/10) Last Admin: 10/21/18 11:27 Dose: 0.5 mg Sodium Chloride () 500 mls @ 15 mls/hr IV .[id number] [facility] Last Admin: 10/20/18 19:15 Dose: 15 mls/hr Sodium Chloride () 1,000 mls @ 125 mls/hr IV .Q8H [facility] Last Admin: 10/21/18 03:49 Dose: 125 mls/hr Ketorolac Tromethamine (Toradol) 30 mg IV Q6H [facility] Stop: 10/21/18 21:01 Last Admin: 10/21/18 09:13 Dose: 30 mg Methylergonovine Maleate (Methergine) 0.2 mg IM X1 PRN PRN Reason: Bleeding Metoclopramide HCl (Reglan) 10 mg IV Q4H PRN PRN PRN Reason: Nausea/Vomiting Naproxen (Naprosyn) 250 - 500 mg PO Q8H PRN PRN PRN Reason: Mild Pain (1-3/10) Ondansetron HCl (Zofran) 4 mg IV Q4H PRN PRN PRN Reason: Nausea Last Admin: 10/19/18 21:30 Dose: 4 mg Oxycodone HCl (Oxyir) 5 - 10 mg PO Q4H PRN PRN PRN Reason: MOD-SEVERE PAIN (4-10/10) Promethazine HCl (Phenergan) 12.5 mg IV Q4H PRN PRN PRN Reason: NAUSEA/VOMITING Senna/Docusate Sodium (Senokot-S, Tracie-Colace) 1 tablet PO BID [facility] Last Admin: 10/21/18 10:24 Dose: Not Given Simethicone (Mylicon) 80 mg PO PCHS PRN PRN Reason: Indigestion/stomach pain Last Admin: 10/20/18 14:10 Dose: 80 mg Sodium Chloride () 5 - 15 ml IV UD PRN PRN Reason: SALINE FLUSH Last Admin: 10/21/18 06:53 Dose: 10 ml Sodium Chloride () 5 - 15 ml IV UD PRN PRN Reason: SALINE FLUSH Medical Necessity - Tobacco Use Smoking Status: Never smoker Assessment/Plan All Active Problems Hypocalcemia (Acute) Hyperkalemia (Acute) Hyponatremia (Acute) Ileus (Acute) Acute blood loss anemia (Acute) 1. Hypocalcemia s/p Calcium gluconate (required to be in PCU for this) Follow up labs 2. Hyperkalemia no hemolysis follow up labs 3. Hyponatremia maybe due to IVF now on NS recheck 4. Ileus shashank post-op Primary team managing. 5. Preeclampsia resolved s/p C-sxn on 10/19 OB managing 6. Acute blood loss anemia 12.2 to 5.7 Improved to 7.8 after 2 units PRBCs 7. DVT proph: LMWH.
[2018-10-21 12:37] LABS: Anion Gap 11 (5-15); BUN 25 mg/dL (7-18); BUN/Creat Ratio 21.6 RATIO (10-20); Calcium,Total 6.8 mg/dL (8.5-10.1); Chloride 99 mmol/L (98-107); Creatinine, Serum 1.16 mg/dL (0.55-1.02); EST Glomerular Filtration Rate 62 mL/min (>60); Est Glom Filt Rate - Afr Amer 75 mL/min (>60); Estimated Creatinine Clearance 80.17 ml/min; Glucose 89 mg/dL (74-106); Potassium 4.9 mmol/L (3.5-5.1); Sodium Level 132 mmol/L (136-145)
--- NOTE | 2018-10-21 14:21 | NURSING ---
pts abd firm unable to palpate deep enough to locate fundus; lochia scant; pt pumping - breastmilk brought down and put in fridge; no new drainage on telfa
--- NOTE | 2018-10-21 16:38 | CASEMGMT ---
SW met with patient, introduced self and role at [facility]. Patient has an NG tube in and does not like to talk with it in. She wanted her grandma to stay in the room to help answer questions. Patient lives with her mom. Her significant other is supportive as well. She said she stopped smoking marijuana when she found out she was . She was not up to talking much more. Once she is able she will be going to [place] to be with her baby. JESSICA gave her a packet of resources. JESSICA also told her [facility] will also help with referrals once her baby is ready for discharge. Plan: home once medically cleared. Onelia DAVID MSW
--- NOTE | 2018-10-21 17:08 | PCM.PN.OB ---
Patient Problems: Active and Suspected Problems Acute blood loss anemia (Acute) Hypocalcemia (Acute) Hyperkalemia (Acute) Hyponatremia (Acute) Ileus (Acute) Subjective: Pt doing okay. She denies nausea or vomiting. States her abdominal pain feels improved. She says earlier today she felt like she was getting her typical NÚÑEZ for her. Denies current NÚÑEZ, vision changes, upper abd pain. She wants to have the NG removed. - Physical Exam General: Alert, No apparent distress HEENT: Atraumatic Lungs: - - No increased resp effort Abdomen: Soft, Non Tender, - - +Distended, no acute signs Extremities: No edema, No Calf Tenderness Skin: No rashes Neurological: Neuro grossly intact Psych/Mental Status: Normal Affect, Appropriate Vital Signs Temp Pulse Resp BP Pulse Ox 98.3 F 91 14 118/63 100 10/21/18 10:30 10/21/18 13:42 10/21/18 10:30 10/21/18 10:30 10/21/18 10:30 Oxygen Delivery Method Room Air Weight: 146 lb 9.718 oz Body Mass Index (BMI) 21.6 Intake and Output for Last 24 Hours 10/19/18 10/20/18 10/21/18 23:59 23:59 23:59 Intake Total 1637 / 1637 5678 / 5678 1903 / 1903 Output Total 300 / 300 874 / 874 430 / 430 Balance 1337 / 1337 4804 / 4804 1473 / 1473 Laboratory Tests Past 24 Hrs 10/19/18 10/20/18 10/21/18 12:50 17:25 02:30 WBC 20.6 H 21.9 H RBC 2.04 L 2.67 L Hgb 5.7 L* 7.8 L Hct 18.3 L 23.3 L MCV 89.7 87.3 MCH 27.9 29.2 MCHC 31.1 L 33.5 RDW 15.0 H 14.6 RDW Differential 46.1 H 45.8 H Plt Count 162 150 MPV 11.0 11.1 Sodium Potassium Chloride Carbon Dioxide Anion Gap BUN Creatinine Estim Creat Clear Calc Est GFR (MDRD) Af Amer Est GFR (MDRD) Non-Af BUN/Creatinine Ratio Glucose Serum Osmolality Calcium Total Bilirubin AST ALT Alkaline Phosphatase Total Protein Albumin Globulin Albumin/Globulin Ratio TSH Cortisol Urine Osmolality Ur Random Sodium Crossmatch See Detail 10/21/18 10/21/18 10/21/18 02:30 02:30 07:10 WBC RBC Hgb Hct MCV MCH MCHC RDW RDW Differential Plt Count MPV Sodium 127 L Potassium 5.5 H Chloride 99 Carbon Dioxide 20.0 L Anion Gap 8 BUN 20 H Creatinine 0.98 Estim Creat Clear Calc 83.23 Est GFR (MDRD) Af Amer 92 Est GFR (MDRD) Non-Af 76 BUN/Creatinine Ratio 20.5 H Glucose 110 H Serum Osmolality Calcium 5.9 L* Total Bilirubin 0.50 AST 26 ALT 15 Alkaline Phosphatase 147 H Total Protein 4.8 L Albumin 2.0 L Globulin 2.8 Albumin/Globulin Ratio 0.7 L TSH 3.01 Cortisol 23.40 H Urine Osmolality Ur Random Sodium Crossmatch 10/21/18 10/21/18 10/21/18 07:10 09:35 09:35 WBC RBC Hgb Hct MCV MCH MCHC RDW RDW Differential Plt Count MPV Sodium Potassium Chloride Carbon Dioxide Anion Gap BUN Creatinine Estim Creat Clear Calc Est GFR (MDRD) Af Amer Est GFR (MDRD) Non-Af BUN/Creatinine Ratio Glucose Serum Osmolality 272 L Calcium Total Bilirubin AST ALT Alkaline Phosphatase Total Protein Albumin Globulin Albumin/Globulin Ratio TSH Cortisol Urine Osmolality 341 Ur Random Sodium 8 Crossmatch 10/21/18 12:00 WBC RBC Hgb Hct MCV MCH MCHC RDW RDW Differential Plt Count MPV Sodium 132 L Potassium 4.9 Chloride 99 Carbon Dioxide 22.0 Anion Gap 11 BUN 25 H Creatinine 1.16 H Estim Creat Clear Calc 80.17 Est GFR (MDRD) Af Amer 75 Est GFR (MDRD) Non-Af 62 BUN/Creatinine Ratio 21.6 H Glucose 89 Serum Osmolality Calcium 6.8 L Total Bilirubin AST ALT Alkaline Phosphatase Total Protein Albumin Globulin Albumin/Globulin Ratio TSH Cortisol Urine Osmolality Ur Random Sodium Crossmatch Medical Necessity - Tobacco Use Smoking Status: Never smoker Assessment/Plan All Active Problems Acute blood loss anemia (Acute) Hypocalcemia (Acute) Hyperkalemia (Acute) Hyponatremia (Acute) Ileus (Acute) Post-op day #2 s/p PLTCS for severe pre-eclampsia - S/p mag gtt - BP's normal, will continue to monitor - No pre-e symptoms at this time - Ordered CBC for the AM - Creatinine elevated, d/c'd scheduled Toradol Ileus - NG in place with very minimal output - Pt symptomatically improved - Will perform clamp trial in AM and if pt does well transition to clears Electrolyte disturbances - Appreciate assistance from medicine team
--- NOTE | 2018-10-21 21:03 | NURSING ---
Unable to palpate fundus due to distended abdomen, mepilex remains dry and intact, no new drainage or s/s of infection present. Scant lochia present on peripad. Patient denies needing assistance with pumping or supplies. Mother at bedside. Communication board updated with this RN name and phone number. No s/s of excessive bleeding present.
--- NOTE | 2018-10-21 22:22 | NURSING ---
When attempting to give crushed 2200 pills via NG tube, patient became nauseated and refused medications to be pushed through NG tube. Medicated for nausea per request.
[2018-10-21] MEDS: Ondansetron 4 MG/2 ML Vial IV (22:28)
[2018-10-22] VITALS (20 sets, daily range): BP systolic 144–165; BP diastolic 84–109; PULSE 107–122; RESP 15–20; TEMP 36.8–37.7; O2SAT 97–100
[2018-10-22] MEDS: HYDROmorphone 0.5 MG/0.5 ML SYRINGE IV ×4 (02:35→22:29)
[2018-10-22] MEDS: 0.9% Normal Saline 1,000 ML 125 ML IV ×2 (02:40→22:41)
--- NOTE | 2018-10-22 02:40 | NURSING ---
Patient awakens easily with care. Mepilex dressing remains dry and intact, no new drainage or s/s of infection present. Pericare completed and pad changed. Patient has not pumped this shift, RN offered assistance. Patient refused at this time due to pain. Encouraged to pump when able to. Unable to palpate fundus due to distention.
[2018-10-22] MEDS: Metoclopramide 10 MG/2 ML Vial IV ×2 (04:21→09:47)
--- NOTE | 2018-10-22 04:25 | NURSING ---
Per patient report, patient was sleeping and got NG tube wrapped around arm. Woke up and had pulled tubing out. Hospitalist okay with keeping it out for now since clamping trial was planned for am. Will contact OB in am.
[2018-10-22] MEDS: Enoxaparin 40 MG/0.4 ML Syringe SC (05:51)
[2018-10-22 06:36] LABS: Hematocrit 15.7 % (37-47); Mean Corp Hgb Conc 33.1 g/gl (32-36); Mean Corpuscular Hgb 28.7 pg (27.0-32.0); Mean Corpuscular Volume 86.7 fL (81-99); Mean Platelet Vol. 9.8 fl (6.2-12.0); Platelet Count 103 K/mm3 (150-450); RBC Distribution Width CV 15.3 % (11.6-14.6); RBC Distribution Width SD 48.1 fl (35.1-43.9); Red Blood Count 1.81 M/mm3 (4.2-5.4); White Blood Count 15.2 K/mm3 (4.4-11.0)
[2018-10-22 06:40] LABS: Scan Indicated on CBC? Y/N YES- FLAGS NOTED
[2018-10-22 06:41] LABS: Hemoglobin 5.2 g/dl (12.0-15.0)
[2018-10-22 07:06] LABS: ALB/GLOB Ratio 0.6 RATIO (0.9-2.4); AST(SGOT) 25 U/L (15-37); Alanine Aminotransfer ALT/SGPT 17 U/L (13-56); Alkaline Phosphatase 149 U/L (45-117); Anion Gap 11 (5-15); BUN 17 mg/dL (7-18); BUN/Creat Ratio 23.7 RATIO (10-20); Calcium,Total 7.2 mg/dL (8.5-10.1); Chloride 107 mmol/L (98-107); Creatinine, Serum 0.72 mg/dL (0.55-1.02); EST Glomerular Filtration Rate 108 mL/min (>60); Est Glom Filt Rate - Afr Amer 131 mL/min (>60); Estimated Creatinine Clearance 129.17 ml/min; Globulin 3.4 g/dL (2.2-4.2); Glucose 78 mg/dL (74-106); Potassium 4.4 mmol/L (3.5-5.1); Protein, Total 5.4 g/dL (6.4-8.2); Sodium Level 139 mmol/L (136-145)
--- NOTE | 2018-10-22 08:21 | NURSING ---
Unable to locate fundus due to abdominal distention. Lochia scant. Supply of pads replenished. Dr. Cordova discussed hemoglobin, abdominal distention, blood transfusion and CT scan.
--- NOTE | 2018-10-22 08:25 | CT_ITS ---
We are attempting to reach Nataliya Cordova DO to discuss findings. An addendum with communication details will be sent when the communication is complete. STUDY: CT ABDOMEN AND PELVIS WITH CONTRAST REASON FOR EXAM: Female, 23 years old. Abdominal pain, status post recent RADIATION DOSAGE (If Supplied By Facility): CTDIvol = ( 8.58 ) mGy, DLP = ( 422.40 ) mGycm TECHNIQUE: Transaxial images were obtained from the dome of the diaphragm to the symphysis pubis without oral contrast. 100 ml of Isovue 300 contrast was administered. Sagittal and coronal images were reconstructed. Individualized dose optimization techniques were used for this CT. COMPARISON: None. FINDINGS: The visualized lung bases demonstrate bilateral effusions and basilar atelectasis. The visualized portions of the heart are within normal limits. Normal liver. Normal gallbladder and extrahepatic biliary system. Normal spleen. Normal pancreas. Normal bilateral adrenal glands. Mild hydronephrosis of the right kidney and right hydroureter. Normal left kidney. Normal visualized stomach. Normal small intestine. Normal colon. The appendix is not visualized. Normal abdominal aorta. Normal inferior vena cava. Normal retroperitoneum. Mild pneumoperitoneum is noted in the upper pelvic region. Sanders catheter in a decompressed urinary bladder. Prominent heterogeneous uterus. Negative can complex fluid in the abdomen and pelvis possibly related to the history of intra-abdominal bleeding. There is edema of the labia. Subcutaneous gas of the anterior abdominal wall likely related to the recent surgery. Normal osseous structures. CT/Abdomen/Pelvis W IV Cont ONLY IMPRESSION: There is significant complex fluid in the abdomen and pelvis. Intra-abdominal bleed cannot be excluded. Prominent heterogeneous uterus. Mild pneumoperitoneum. Subcutaneous gas in the lower abdominal wall. These are likely from recent surgery. Mild right hydronephrosis and right hydroureter. Bilateral pleural effusions with basilar atelectasis. Electronically Signed: Jason Edmond DO at 10:46 EST Tel [phone], Service support ,
--- NOTE | 2018-10-22 08:33 | PCM.PN.OB ---
Patient Problems: Active and Suspected Problems Acute blood loss anemia (Acute) Hypocalcemia (Acute) Hyperkalemia (Acute) Hyponatremia (Acute) Ileus (Acute) Subjective: Patient is doing well this morning. She states her abdominal pain remains significantly improved from prior. She accidentally removed her NG tube overnight, and denies any nausea or vomiting. She states she is passing flatus. She denies any lightheadedness or dizziness, although has not been up from bed. Her mother is at bedside. - Physical Exam General: Alert, No apparent distress HEENT: Atraumatic Lungs: - - No increased resp effort Abdomen: Soft, Non Tender, - - +Remains significantly distended, no rebounding, no gaurding, no rigidity Extremities: No edema, No Calf Tenderness Skin: No rashes Neurological: Neuro grossly intact Psych/Mental Status: Normal Affect, Appropriate Vital Signs Temp Pulse Resp BP Pulse Ox 99.1 F 109 H 20 H 144/85 H 100 10/22/18 02:45 10/22/18 02:56 10/22/18 02:45 10/22/18 02:45 10/22/18 02:45 Oxygen Delivery Method Room Air Weight: 146 lb 9.718 oz Body Mass Index (BMI) 21.6 Intake and Output for Last 24 Hours 10/20/18 10/21/18 10/22/18 23:59 23:59 23:59 Intake Total 5678 / 5678 3561 / 3561 738 / 738 Output Total 874 / 874 1205 / 1205 1500 / 1500 Balance 4804 / 4804 2356 / 2356 -762 / -762 Laboratory Tests Past 24 Hrs 10/19/18 10/21/18 10/21/18 12:50 07:10 09:35 WBC RBC Hgb Hct MCV MCH MCHC RDW RDW Differential Plt Count MPV Differential Comment Diff Path Review Sodium Potassium Chloride Carbon Dioxide Anion Gap BUN Creatinine Estim Creat Clear Calc Est GFR (MDRD) Af Amer Est GFR (MDRD) Non-Af BUN/Creatinine Ratio Glucose Calcium Total Bilirubin AST ALT Alkaline Phosphatase Total Protein Albumin Globulin Albumin/Globulin Ratio Cortisol 23.40 H Urine Osmolality Ur Random Sodium 8 Crossmatch See Detail 10/21/18 10/21/18 10/22/18 09:35 12:00 06:10 WBC RBC Hgb Hct MCV MCH MCHC RDW RDW Differential Plt Count MPV Differential Comment Diff Path Review Sodium 132 L 139 Potassium 4.9 4.4 Chloride 99 107 Carbon Dioxide 22.0 21.0 Anion Gap 11 11 BUN 25 H 17 Creatinine 1.16 H 0.72 Estim Creat Clear Calc 80.17 129.17 Est GFR (MDRD) Af Amer 75 131 Est GFR (MDRD) Non-Af 62 108 BUN/Creatinine Ratio 21.6 H 23.7 H Glucose 89 78 Calcium 6.8 L 7.2 L Total Bilirubin 0.30 AST 25 ALT 17 Alkaline Phosphatase 149 H Total Protein 5.4 L Albumin 2.0 L Globulin 3.4 Albumin/Globulin Ratio 0.6 L Cortisol Urine Osmolality 341 Ur Random Sodium Crossmatch 10/22/18 06:10 WBC 15.2 H RBC 1.81 L Hgb 5.2 L* Hct 15.7 L MCV 86.7 MCH 28.7 MCHC 33.1 RDW 15.3 H RDW Differential 48.1 H Plt Count 103 L MPV 9.8 Differential Comment Diff Path Review May foll Sodium Potassium Chloride Carbon Dioxide Anion Gap BUN Creatinine Estim Creat Clear Calc Est GFR (MDRD) Af Amer Est GFR (MDRD) Non-Af BUN/Creatinine Ratio Glucose Calcium Total Bilirubin AST ALT Alkaline Phosphatase Total Protein Albumin Globulin Albumin/Globulin Ratio Cortisol Urine Osmolality Ur Random Sodium Crossmatch Medical Necessity - Tobacco Use Smoking Status: Never smoker Assessment/Plan All Active Problems Acute blood loss anemia (Acute) Hypocalcemia (Acute) Hyperkalemia (Acute) Hyponatremia (Acute) Ileus (Acute) POD#3 s/p PLTCS for severe pre-eclampsia - Hgb this AM is 5.2. Slightly tachycardic with HR in low 100's. BP stable and normal and this time. Patient states her abdominal pain remains improved, and denies any symptoms of anemia although has not been out of bed. Discussed at length with patient and her mom that I am concerned about active intra-abdominal bleeding given her abdominal distension, ileus, and drop in Hgb. Reviewed the options: 1. Surgery to assess for the bleeding, 2. CTAP and serial CBC's. Reviewed risks and benefits of both. Patient and mother are agreeable to CTAP and serial CBC's and understand that there is still a chance she would need surgery to assess for the bleeding. Will give 3 units PRBC's now, and then get a CBC and coags 4 hours after the PRBC's. Then CBC q 4 hrs and coags in the AM. CTAP with IV contrast ordered, creatinine normal today. Patient removed NG overnight but is without N/V this morning, okay to leave NG out, patient to remain NPO. Please call with any questions or concerns: [phone]
[2018-10-22] MEDS: 0.9% Saline Lock 10 ML Syringe IV ×5 (09:47→22:29)
--- NOTE | 2018-10-22 12:37 | PCM.PN.OB ---
Patient Problems: Active and Suspected Problems Acute blood loss anemia (Acute) Hypocalcemia (Acute) Hyperkalemia (Acute) Hyponatremia (Acute) Ileus (Acute) Subjective: Patient is resting. Mother and grandmother are at bedside, as well as RN. Pt had a NÚÑEZ earlier and was given Reglan and Dilaudid. She is now sleeping and NÚÑEZ improved. She denies any abdominal pain during exam. - Physical Exam General: No apparent distress HEENT: Atraumatic Lungs: - - No increased resp effort Abdomen: Soft, Non Tender, - - +Remains distended, exam unchanged from earlier, no rebounding, no gaurding, no rigidity Extremities: No edema Skin: No rashes Neurological: Neuro grossly intact Psych/Mental Status: Appropriate Vital Signs Temp Pulse Resp BP Pulse Ox 99.3 F H 114 H 16 147/95 H 99 10/22/18 12:22 10/22/18 12:22 10/22/18 12:22 10/22/18 12:22 10/22/18 12:22 Oxygen Delivery Method Room Air Weight: 146 lb 9.718 oz Body Mass Index (BMI) 21.6 Intake and Output for Last 24 Hours 10/20/18 10/21/18 10/22/18 23:59 23:59 23:59 Intake Total 5678 / 5678 3561 / 3561 738 / 738 Output Total 874 / 874 1205 / 1205 1500 / 1500 Balance 4804 / 4804 2356 / 2356 -762 / -762 Microbiology Past 72 Hours 10/19/18 Unknown Group B Streptococcus Culture - Final Genital vaginal Group B Beta Streptococcus is not isolated. Laboratory Tests Past 24 Hrs 10/19/18 10/19/18 10/21/18 12:50 12:50 12:00 WBC RBC Hgb Hct MCV MCH MCHC RDW RDW Differential Plt Count MPV Differential Comment Diff Path Review Sodium 132 L Potassium 4.9 Chloride 99 Carbon Dioxide 22.0 Anion Gap 11 BUN 25 H Creatinine 1.16 H Estim Creat Clear Calc 80.17 Est GFR (MDRD) Af Amer 75 Est GFR (MDRD) Non-Af 62 BUN/Creatinine Ratio 21.6 H Glucose 89 Calcium 6.8 L Total Bilirubin AST ALT Alkaline Phosphatase Total Protein Albumin Globulin Albumin/Globulin Ratio Crossmatch See Detail See Detail 10/22/18 10/22/18 06:10 06:10 WBC 15.2 H RBC 1.81 L Hgb 5.2 L* Hct 15.7 L MCV 86.7 MCH 28.7 MCHC 33.1 RDW 15.3 H RDW Differential 48.1 H Plt Count 103 L MPV 9.8 Differential Comment Diff Path Review May foll Sodium 139 Potassium 4.4 Chloride 107 Carbon Dioxide 21.0 Anion Gap 11 BUN 17 Creatinine 0.72 Estim Creat Clear Calc 129.17 Est GFR (MDRD) Af Amer 131 Est GFR (MDRD) Non-Af 108 BUN/Creatinine Ratio 23.7 H Glucose 78 Calcium 7.2 L Total Bilirubin 0.30 AST 25 ALT 17 Alkaline Phosphatase 149 H Total Protein 5.4 L Albumin 2.0 L Globulin 3.4 Albumin/Globulin Ratio 0.6 L Crossmatch Medical Necessity - Tobacco Use Smoking Status: Never smoker Assessment/Plan All Active Problems Acute blood loss anemia (Acute) Hypocalcemia (Acute) Hyperkalemia (Acute) Hyponatremia (Acute) Ileus (Acute) - Abdominal exam remains non-acute and patient without pain - HR 111 while in room, BP's mild range, pt not hypotensive at this time - CTAP with complex fluid in abdomen and pelvis as expected, no clear sign of an active bleed, results were discussed with patient and family - 2nd unit of PRBC's hanging currently - Patient and family still comfortable with expectant management at this time and serial CBC's after 3rd transfusion. Again discussed option for surgery to evacuate the hematoma and assess for an active bleed. They are comfortable waiting to see if CBC's are stable after transfusions. Discussed risk of infection with hematoma in pelvis and abdomen - Have been discussing patient with Dr. Valenzuela as well for second opinion
--- NOTE | 2018-10-22 14:29 | NURSING ---
This RN in room for fundal assessment; bleeding appropriate; fundus difficult to assess d/t abd distension; fundus firm and -2; pt in good spirits with family at side and supportive.
--- NOTE | 2018-10-22 16:56 | PCM.PN.HOSP ---
Patient Problems: Active and Suspected Problems Acute blood loss anemia (Acute) Hypocalcemia (Acute) Hyperkalemia (Acute) Hyponatremia (Acute) Ileus (Acute) Subjective: HEENT was seen and examined. Denies any new complaints. Denied dizziness or shortness of breath. Currently being transfused packed RBCs for severe anemia. Her abdomen is distended and feels full. No abdominal tenderness. Vitals/I&O's: Vital Signs Temp Pulse Resp BP Pulse Ox 98.3 F 122 H 16 149/96 H 100 10/22/18 13:37 10/22/18 15:11 10/22/18 13:37 10/22/18 13:37 10/22/18 13:37 Oxygen Delivery Method Room Air Weight: 66.5 kg Body Mass Index (BMI) 21.6 Intake and Output for Last 24 Hours 10/20/18 10/21/18 10/22/18 23:59 23:59 23:59 Intake Total 5678 / 5678 3561 / 3561 2024 Output Total 874 / 874 1205 / 1205 3775 / 3775 Balance 4804 / 4804 2356 / 2356 -1750 / -1750 General: Alert, Oriented x3, Cooperative, No apparent distress HEENT: Atraumatic, PERRLA, EOMI, Normocephalic Oral: Moist Mucosa Neck: Supple, No JVD, Negative Carotid Bruits Lungs: Clear to auscultation, Normal air movement Cardiovascular: Regular rate, Regular Rhythm, Normal S1, Normal S2, No murmurs Abdomen: Bowel Sounds Present, Non Tender, No Hepato-splenomegaly, Distended, - - Dressing in situ, few areas of old blood, abdomen is firm to touch Extremities: No edema Skin: No rashes, No breakdown Musculoskeletal: No Tenderness to Palpation of Joints or Extremities Neurological: Cranial nerves II-XII grossly intact Psych/Mental Status: Normal Affect, Appropriate Microbiology Past 72 Hours 10/19/18 Unknown Genital vaginal Group B Streptococcus Culture - Final Group B Beta Streptococcus is not isolated. Laboratory Results 10/19/18 12:50: Crossmatch See Detail 10/19/18 12:50: Crossmatch See Detail 10/22/18 06:10: Sodium 139, Potassium 4.4, Chloride 107, Carbon Dioxide 21.0, Anion Gap 11, BUN 17, Creatinine 0.72, Estim Creat Clear Calc 129.17, Est GFR (MDRD) Af Amer 131, Est GFR (MDRD) Non-Af 108, BUN/Creatinine Ratio 23.7 H, Glucose 78, Calcium 7.2 L, Total Bilirubin 0.30, AST 25, ALT 17, Alkaline Phosphatase 149 H, Total Protein 5.4 L, Albumin 2.0 L, Globulin 3.4, Albumin/Globulin Ratio 0.6 L 10/22/18 06:10: WBC 15.2 H, RBC 1.81 L, Hgb 5.2 L*, Hct 15.7 L, MCV 86.7, MCH 28.7, MCHC 33.1, RDW 15.3 H, RDW Differential 48.1 H, Plt Count 103 L, MPV 9.8, Differential Comment , Diff Path Review January10/22/18 15:25: Blood Type O POSITIVE, Antibody Screen NEGATIVE 10/22/18 15:25: Crossmatch See Detail Current Medications Acetaminophen (Tylenol) 1,000 mg PO Q8H PRN PRN PRN Reason: MILD PAIN (1-310) Bisacodyl (Dulcolax) 10 mg RECTAL UD PRN PRN Reason: If no BM Docusate Sodium (Colace) 100 mg PO BID [facility] Last Admin: 10/22/18 13:29 Dose: Not Given Hydrocortisone (Hytone) 1 applic TOPICAL TID PRN PRN; Protocol PRN Reason: Discomfort Hydromorphone HCl (Dilaudid Inj) 0.5 mg IV Q3H PRN PRN PRN Reason: SEVERE PAIN (6-10/10) Last Admin: 10/22/18 11:10 Dose: 0.5 mg Sodium Chloride () 500 mls @ 15 mls/hr IV .[id number] [facility] Last Admin: 10/22/18 04:23 Dose: Not Given Sodium Chloride () 1,000 mls @ 125 mls/hr IV .Q8H [facility] Last Admin: 10/22/18 02:40 Dose: 125 mls/hr Melatonin (Melatonin) 3 mg PO QHS [facility] Last Admin: 10/21/18 22:22 Dose: Not Given Methylergonovine Maleate (Methergine) 0.2 mg IM X1 PRN PRN Reason: Bleeding Metoclopramide HCl (Reglan) 10 mg IV Q4H PRN PRN PRN Reason: Nausea/Vomiting Last Admin: 10/22/18 09:47 Dose: 10 mg Naproxen (Naprosyn) 250 - 500 mg PO Q8H PRN PRN PRN Reason: Mild Pain (1-3/10) Ondansetron HCl (Zofran) 4 mg IV Q4H PRN PRN PRN Reason: Nausea Last Admin: 10/21/18 22:28 Dose: 4 mg Oxycodone HCl (Oxyir) 5 - 10 mg PO Q4H PRN PRN PRN Reason: MOD-SEVERE PAIN (4-10/10) Promethazine HCl (Phenergan) 12.5 mg IV Q4H PRN PRN PRN Reason: NAUSEA/VOMITING Senna/Docusate Sodium (Senokot-S, Tracie-Colace) 1 tablet PO BID NADJA Last Admin: 10/22/18 13:29 Dose: Not Given Simethicone (Mylicon) 80 mg PO PCHS PRN PRN Reason: Indigestion/stomach pain Last Admin: 10/20/18 14:10 Dose: 80 mg Sodium Chloride () 5 - 15 ml IV UD PRN PRN Reason: SALINE FLUSH Last Admin: 10/22/18 11:10 Dose: 10 ml Sodium Chloride () 5 - 15 ml IV UD PRN PRN Reason: SALINE FLUSH Medical Necessity - Tobacco Use Smoking Status: Never smoker Assessment/Plan All Active Problems Acute blood loss anemia (Acute) Hypocalcemia (Acute) Hyperkalemia (Acute) Hyponatremia (Acute) Ileus (Acute) 1. Severe anemia secondary to postop blood loss intraperitoneum, globin is 5.2, dropped from 7.8, CT of the abdomen confirms intra-abdominal bleeding. Currently being transfused 3 units of packed RBCs OBGYN planning on conservative management with serial H&H's Will follow up on labs in the morning 2. Electrolyte imbalances, resolved 3. Postop ileus, resolved 4. Preeclampsia resolved 5. DVT prophylaxis with SCDs Code Visit Inpatient E&M: 222[address] [facility] L3
--- NOTE | 2018-10-22 17:01 | PN_ITS ---
Patient Problems: Active and Suspected Problems Acute blood loss anemia (Acute) Hypocalcemia (Acute) Hyperkalemia (Acute) Hyponatremia (Acute) Ileus (Acute) Subjective: HEENT was seen and examined. Denies any new complaints. Denied dizziness or shortness of breath. Currently being transfused packed RBCs for severe anemia. Her abdomen is distended and feels full. No abdominal tenderness. Vitals/I&O's: Vital Signs Temp Pulse Resp BP Pulse Ox 98.3 F 122 H 16 149/96 H 100 10/22/18 13:37 10/22/18 15:11 10/22/18 13:37 10/22/18 13:37 10/22/18 13:37 Oxygen Delivery Method Room Air Weight: 66.5 kg Body Mass Index (BMI) 21.6 Intake and Output for Last 24 Hours 10/20/18 10/21/18 10/22/18 23:59 23:59 23:59 Intake Total 5678 / 5678 3561 / 3561 2024 Output Total 874 / 874 1205 / 1205 3775 / 3775 Balance 4804 / 4804 2356 / 2356 -1750 / -1750 General: Alert, Oriented x3, Cooperative, No apparent distress HEENT: Atraumatic, PERRLA, EOMI, Normocephalic Oral: Moist Mucosa Neck: Supple, No JVD, Negative Carotid Bruits Lungs: Clear to auscultation, Normal air movement Cardiovascular: Regular rate, Regular Rhythm, Normal S1, Normal S2, No murmurs Abdomen: Bowel Sounds Present, Non Tender, No Hepato-splenomegaly, Distended, - - Dressing in situ, few areas of old blood, abdomen is firm to touch Extremities: No edema Skin: No rashes, No breakdown Musculoskeletal: No Tenderness to Palpation of Joints or Extremities Neurological: Cranial nerves II-XII grossly intact Psych/Mental Status: Normal Affect, Appropriate Microbiology Past 72 Hours 10/19/18 Unknown Genital vaginal Group B Streptococcus Culture - Final Group B Beta Streptococcus is not isolated. Laboratory Results 10/19/18 12:50: Crossmatch See Detail 10/19/18 12:50: Crossmatch See Detail 10/22/18 06:10: Sodium 139, Potassium 4.4, Chloride 107, Carbon Dioxide 21.0, Anion Gap 11, BUN 17, Creatinine 0.72, Estim Creat Clear Calc 129.17, Est GFR (MDRD) Af Amer 131, Est GFR (MDRD) Non-Af 108, BUN/Creatinine Ratio 23.7 H, Glucose 78, Calcium 7.2 L, Total Bilirubin 0.30, AST 25, ALT 17, Alkaline Phosphatase 149 H, Total Protein 5.4 L, Albumin 2.0 L, Globulin 3.4, Albumin/Globulin Ratio 0.6 L 10/22/18 06:10: WBC 15.2 H, RBC 1.81 L, Hgb 5.2 L*, Hct 15.7 L, MCV 86.7, MCH 28.7, MCHC 33.1, RDW 15.3 H, RDW Differential 48.1 H, Plt Count 103 L, MPV 9.8, Differential Comment , Diff Path Review January10/22/18 15:25: Blood Type O POSITIVE, Antibody Screen NEGATIVE 10/22/18 15:25: Crossmatch See Detail Current Medications Acetaminophen (Tylenol) 1,000 mg PO Q8H PRN PRN PRN Reason: MILD PAIN (1-310) Bisacodyl (Dulcolax) 10 mg RECTAL UD PRN PRN Reason: If no BM Docusate Sodium (Colace) 100 mg PO BID [facility] Last Admin: 10/22/18 13:29 Dose: Not Given Hydrocortisone (Hytone) 1 applic TOPICAL TID PRN PRN; Protocol PRN Reason: Discomfort Hydromorphone HCl (Dilaudid Inj) 0.5 mg IV Q3H PRN PRN PRN Reason: SEVERE PAIN (6-10/10) Last Admin: 10/22/18 11:10 Dose: 0.5 mg Sodium Chloride () 500 mls @ 15 mls/hr IV .[id number] [facility] Last Admin: 10/22/18 04:23 Dose: Not Given Sodium Chloride () 1,000 mls @ 125 mls/hr IV .Q8H [facility] Last Admin: 10/22/18 02:40 Dose: 125 mls/hr Melatonin (Melatonin) 3 mg PO QHS [facility] Last Admin: 10/21/18 22:22 Dose: Not Given Methylergonovine Maleate (Methergine) 0.2 mg IM X1 PRN PRN Reason: Bleeding Metoclopramide HCl (Reglan) 10 mg IV Q4H PRN PRN PRN Reason: Nausea/Vomiting Last Admin: 10/22/18 09:47 Dose: 10 mg Naproxen (Naprosyn) 250 - 500 mg PO Q8H PRN PRN PRN Reason: Mild Pain (1-3/10) Ondansetron HCl (Zofran) 4 mg IV Q4H PRN PRN PRN Reason: Nausea Last Admin: 10/21/18 22:28 Dose: 4 mg Oxycodone HCl (Oxyir) 5 - 10 mg PO Q4H PRN PRN PRN Reason: MOD-SEVERE PAIN (4-10/10) Promethazine HCl (Phenergan) 12.5 mg IV Q4H PRN PRN PRN Reason: NAUSEA/VOMITING Senna/Docusate Sodium (Senokot-S, Tracie-Colace) 1 tablet PO BID [facility] Last Admin: 10/22/18 13:29 Dose: Not Given Simethicone (Mylicon) 80 mg PO PCHS PRN PRN Reason: Indigestion/stomach pain Last Admin: 10/20/18 14:10 Dose: 80 mg Sodium Chloride () 5 - 15 ml IV UD PRN PRN Reason: SALINE FLUSH Last Admin: 10/22/18 11:10 Dose: 10 ml Sodium Chloride () 5 - 15 ml IV UD PRN PRN Reason: SALINE FLUSH Medical Necessity - Tobacco Use Smoking Status: Never smoker Assessment/Plan All Active Problems Acute blood loss anemia (Acute) Hypocalcemia (Acute) Hyperkalemia (Acute) Hyponatremia (Acute) Ileus (Acute) 1. Severe anemia secondary to postop blood loss intraperitoneum, globin is 5.2, dropped from 7.8, CT of the abdomen confirms intra-abdominal bleeding. Currently being transfused 3 units of packed RBCs OBGYN planning on conservative management with serial H&H's Will follow up on labs in the morning 2. Electrolyte imbalances, resolved 3. Postop ileus, resolved 4. Preeclampsia resolved 5. DVT prophylaxis with SCDs Code Visit Inpatient E&M: 21773 [facility] H[facility] L3
--- NOTE | 2018-10-22 18:12 | PCM.PN.OB ---
Patient Problems: Active and Suspected Problems Acute blood loss anemia (Acute) Hypocalcemia (Acute) Hyperkalemia (Acute) Hyponatremia (Acute) Ileus (Acute) Subjective: Patient feels better. Mother and grandmother are still at bedside. Pt reports her NÚÑEZ is back and she describes it as her typical migraine NÚÑEZ with throbbing in her temporal area. Rated 4/10 currently and she states it is mild. Recheck of BP at bedside x 2 with SBP 160's. She attributes her NÚÑEZ to not being able to eat or drink. No vision changes, upper abdominal pain, nausea, vomiting. She was up walking around the bed earlier today, and did well. She states her pain was actually improved while up and she denied having lightheadedness, dizziness, SOB. She continues to pass flatus. She is hungry. - Physical Exam General: Alert, No apparent distress HEENT: Atraumatic Lungs: - - No increased resp effort Abdomen: Soft, Non Tender, - - +Less distended than prior, no rebounding, no gaurding, no rigidity Extremities: No edema Skin: No rashes Neurological: Neuro grossly intact Psych/Mental Status: Normal Affect, Appropriate Vital Signs Temp Pulse Resp BP Pulse Ox 99.3 F H 109 H 18 165/109 H 100 10/22/18 18:05 10/22/18 18:05 10/22/18 18:05 10/22/18 18:05 10/22/18 18:05 Oxygen Delivery Method Room Air Weight: 146 lb 9.718 oz Body Mass Index (BMI) 21.6 Intake and Output for Last 24 Hours 10/20/18 10/21/18 10/22/18 23:59 23:59 23:59 Intake Total 5678 / 5678 3561 / 3561 2024 Output Total 874 / 874 1205 / 1205 3775 / 3775 Balance 4804 / 4804 2356 / 2356 -1750 / -1750 Microbiology Past 72 Hours 10/19/18 Unknown Group B Streptococcus Culture - Final Genital vaginal Group B Beta Streptococcus is not isolated. Laboratory Tests Past 24 Hrs 10/19/18 10/19/18 10/22/18 12:50 12:50 06:10 WBC RBC Hgb Hct MCV MCH MCHC RDW RDW Differential Plt Count MPV Differential Comment Diff Path Review Sodium 139 Potassium 4.4 Chloride 107 Carbon Dioxide 21.0 Anion Gap 11 BUN 17 Creatinine 0.72 Estim Creat Clear Calc 129.17 Est GFR (MDRD) Af Amer 131 Est GFR (MDRD) Non-Af 108 BUN/Creatinine Ratio 23.7 H Glucose 78 Calcium 7.2 L Total Bilirubin 0.30 AST 25 ALT 17 Alkaline Phosphatase 149 H Total Protein 5.4 L Albumin 2.0 L Globulin 3.4 Albumin/Globulin Ratio 0.6 L Blood Type Antibody Screen Crossmatch See Detail See Detail 10/22/18 10/22/18 10/22/18 06:10 15:25 15:25 WBC 15.2 H RBC 1.81 L Hgb 5.2 L* Hct 15.7 L MCV 86.7 MCH 28.7 MCHC 33.1 RDW 15.3 H RDW Differential 48.1 H Plt Count 103 L MPV 9.8 Differential Comment Diff Path Review May foll Sodium Potassium Chloride Carbon Dioxide Anion Gap BUN Creatinine Estim Creat Clear Calc Est GFR (MDRD) Af Amer Est GFR (MDRD) Non-Af BUN/Creatinine Ratio Glucose Calcium Total Bilirubin AST ALT Alkaline Phosphatase Total Protein Albumin Globulin Albumin/Globulin Ratio Blood Type O POSITIVE Antibody Screen NEGATIVE Crossmatch See Detail Medical Necessity - Tobacco Use Smoking Status: Never smoker Assessment/Plan All Active Problems Acute blood loss anemia (Acute) Hypocalcemia (Acute) Hyperkalemia (Acute) Hyponatremia (Acute) Ileus (Acute) S/p PLTCS for severe pre-eclampsia with post-op anemia and intra-abdominal bleed - Severe pre-e: Pt received mag gtt for seizure prophylaxis . NÚÑEZ currently, no other pre-e symptoms. SBP while in the room was in the 160's. Treating with 20 mg of IV labetalol now, and will recheck BP in 20 min. Discussed with patient and family possibly starting her on Labetalol PO BID for BP control, and that the need for oral antihypertensive is often transient in this situation - Intra-abdominal bleed with acute blood loss anemia: Pt without N/V, and still passing flatus. She is currently less distended. Ambulated a little without symptoms of anemia. S/p 3 units of PRBC's. Will trend her CBC at this time
[2018-10-22] MEDS: Labetalol 20 MG/4 ML Vial IV (19:22)
[2018-10-22 20:26] LABS: International Normalized Ratio 1.1; Partial Thromboplast Time 36.8 Seconds (24.1-36.2); Prothrombin Time (Protime)PT. 14.1 SECONDS (11.7-14.9)
[2018-10-22 20:35] LABS: Fibrinogen 545 mg/dl (203-444)
--- NOTE | 2018-10-22 20:50 | NURSING ---
This RN went to PCU to check on pt. fundal exam performed and bleeding checked. Pts remains under the care of PCU nurse. Pts mother bedside at this time.
[2018-10-22] MEDS: Docusate Sodium 100 MG Capsule PO (21:22)
[2018-10-22] MEDS: Senna/Docusate Sodium 1 Tablet PO (21:22)
[2018-10-22] MEDS: MELATONIN 3 MG TABLET PO (21:22)
[2018-10-23] VITALS (17 sets, daily range): BP systolic 135–178; BP diastolic 82–114; PULSE 95–113; RESP 16–18; TEMP 36.7–37.5; O2SAT 96–100
[2018-10-23 00:17] LABS: Basophil# 0.02 X10^3/uL; Basophil% 0.1 % (0-1); Eosinophil# 0.02 X10^3/uL; Eosinophils% 0.1 % (0-5); Hematocrit 23.8 % (37-47); Hemoglobin 8.1 g/dl (12.0-15.0); Mean Corpuscular Hgb 29.7 pg (27.0-32.0); Mean Corpuscular Volume 87.2 fL (81-99); Mean Platelet Vol. 10.3 fl (6.2-12.0); Monocyte# 1.14 X10^3/uL; Monocyte% 6.7 % (0-10); Neutrophil # 13.99 X10^3/uL (2.7-7.7); Neutrophil % 82.1 % (47-70); Platelet Count 105 K/mm3 (150-450); RBC Distribution Width CV 15.8 % (11.6-14.6); RBC Distribution Width SD 48.3 fl (35.1-43.9); Red Blood Count 2.73 M/mm3 (4.2-5.4)
[2018-10-23 00:21] LABS: POSITIVE COUNT NO; POSITIVE DIFFERENTIAL NO; POSITIVE MORPHOLOGY NO
--- NOTE | 2018-10-23 01:40 | NURSING ---
This RN to PCU for fundal assessment. See documentation. Pt denies any needs from this RN. Care still continued by PCU team.
[2018-10-23] MEDS: 0.9% Saline Lock 10 ML Syringe IV ×4 (01:42→11:44)
[2018-10-23] MEDS: HYDROmorphone 0.5 MG/0.5 ML SYRINGE IV ×2 (01:42→07:05)
[2018-10-23 04:37] LABS: International Normalized Ratio 1.1; Prothrombin Time (Protime)PT. 14.4 SECONDS (11.7-14.9)
[2018-10-23 04:38] LABS: Fibrinogen 571 mg/dl (203-444); Partial Thromboplast Time 35.7 Seconds (24.1-36.2)
[2018-10-23 04:49] LABS: Absolute Lymphocyte Count 1.72 X10^3/ul (0.83-4.51); Absolute Neutrophil Count 14.4 X10^3/uL (2.0-7.7); Basophil# 0.02 X10^3/uL; Basophil% 0.1 % (0-1); Eosinophil# 0.02 X10^3/uL; Eosinophils% 0.1 % (0-5); Hematocrit 24.2 % (37-47); Hemoglobin 8.1 g/dl (12.0-15.0); Lymphocyte # 1.72 X10^3/ul (4.0); Lymphocyte % 9.8 % (19-41); Mean Corp Hgb Conc 33.5 g/gl (32-36); Mean Corpuscular Hgb 28.7 pg (27.0-32.0); Mean Corpuscular Volume 85.8 fL (81-99); Mean Platelet Vol. 10.2 fl (6.2-12.0); Monocyte# 1.26 X10^3/uL; Monocyte% 7.2 % (0-10); Neutrophil # 14.42 X10^3/uL (2.7-7.7); Neutrophil % 82.2 % (47-70); Platelet Count 105 K/mm3 (150-450); RBC Distribution Width CV 16.7 % (11.6-14.6); RBC Distribution Width SD 51.7 fl (35.1-43.9); Red Blood Count 2.82 M/mm3 (4.2-5.4); White Blood Count 17.5 K/mm3 (4.4-11.0)
[2018-10-23 05:00] LABS: POSITIVE COUNT NO; POSITIVE DIFFERENTIAL NO; POSITIVE MORPHOLOGY NO
[2018-10-23] MEDS: Labetalol 20 MG/4 ML Vial IV (05:51)
[2018-10-23] MEDS: Labetalol 100 MG Tablet PO (07:00)
[2018-10-23] MEDS: 0.9% Normal Saline 1,000 ML 125 ML IV (07:00)
[2018-10-23 08:09] LABS: Absolute Lymphocyte Count 1.52 X10^3/ul (0.83-4.51); Absolute Neutrophil Count 14.9 X10^3/uL (2.0-7.7); Basophil# 0.02 X10^3/uL; Basophil% 0.1 % (0-1); Differential Indicated SCAN CRITERIA MET; Eosinophil# 0.03 X10^3/uL; Eosinophils% 0.2 % (0-5); Hematocrit 24.1 % (37-47); Hemoglobin 8.2 g/dl (12.0-15.0); Lymphocyte # 1.52 X10^3/ul (4.0); Lymphocyte % 8.5 % (19-41); Mean Corpuscular Hgb 28.9 pg (27.0-32.0); Mean Corpuscular Volume 84.9 fL (81-99); Mean Platelet Vol. 9.2 fl (6.2-12.0); Monocyte# 1.29 X10^3/uL; Monocyte% 7.2 % (0-10); Neutrophil # 14.93 X10^3/uL (2.7-7.7); Neutrophil % 83.2 % (47-70); POSITIVE COUNT NO; POSITIVE DIFFERENTIAL NO; POSITIVE MORPHOLOGY YES; Platelet Count 92 K/mm3 (150-450); RBC Distribution Width CV 16.7 % (11.6-14.6); RBC Distribution Width SD 51.3 fl (35.1-43.9); Red Blood Count 2.84 M/mm3 (4.2-5.4); White Blood Count 17.9 K/mm3 (4.4-11.0)
[2018-10-23 08:23] LABS: Differential Comment SCANNED
--- NOTE | 2018-10-23 09:38 | PCM.PN.HOSP ---
Patient Problems: Active and Suspected Problems Acute blood loss anemia (Acute) Hypocalcemia (Acute) Hyperkalemia (Acute) Hyponatremia (Acute) Ileus (Acute) Subjective: Patient was seen and examined. Complains of abdominal cramps with urge to pass gas. Denies dizziness or SOB or palpitations. Objective: Physical exam: General: Alert, Oriented x3, Cooperative, in pain HEENT: Atraumatic, PERRLA, EOMI, Normocephalic Oral: Moist Mucosa Neck: Supple, No JVD, Negative Carotid Bruits Lungs: Clear to auscultation, Normal air movement Cardiovascular: Regular rate, Regular Rhythm, Normal S1, Normal S2, No murmurs Abdomen: Bowel Sounds Present, Non Tender, No Hepato-splenomegaly, Distended, - - Dressing in situ, few areas of old blood, abdomen is firm to touch Extremities: No edema Skin: No rashes, No breakdown Musculoskeletal: No Tenderness to Palpation of Joints or Extremities Neurological: Cranial nerves II-XII grossly intact Psych/Mental Status: Normal Affect, Appropriate Vitals/I&O's: Vital Signs Temp Pulse Resp BP Pulse Ox 98.2 F 113 H 18 152/112 H 98 10/23/18 06:55 10/23/18 07:31 10/23/18 06:55 10/23/18 06:55 10/23/18 06:55 Oxygen Delivery Method Room Air Weight: 66.5 kg Body Mass Index (BMI) 21.6 Intake and Output for Last 24 Hours 10/21/18 10/22/18 10/23/18 23:59 23:59 23:59 Intake Total 3561 / 3561 2805 / 2805 1291 / 1291 Output Total 1205 / 1205 4025 / 4025 1250 / 1250 Balance 2356 / 2356 -1220 / -1220 41 / 41 Microbiology Past 72 Hours 10/19/18 Unknown Genital vaginal Group B Streptococcus Culture - Final Group B Beta Streptococcus is not isolated. Laboratory Results 10/19/18 12:50: Crossmatch See Detail 10/19/18 12:50: Crossmatch See Detail 10/22/18 15:25: Blood Type O POSITIVE, Antibody Screen NEGATIVE 10/22/18 15:25: Crossmatch See Detail 10/22/18 20:08: PT 14.1, INR 1.1, APTT 36.8 H, Fibrinogen 545 H 10/23/18 00:02: WBC 17.0 H, RBC 2.73 L, Hgb 8.1 L, Hct 23.8 L, MCV 87.2, MCH 29.7, MCHC 34.0, RDW 15.8 H, RDW Differential 48.3 H, Plt Count 105 L, MPV 10.3, Immature Gran % (Auto) 1.000 H, Neut % (Auto) 82.1 H, Lymph % (Auto) 10.0 L, [place] % (Auto) 6.7, Eos % (Auto) 0.1, Baso % (Auto) 0.1, Absolute Neuts (auto) 14.0 H, Absolute Lymphs (auto) 1.70, Total Counted Not Reportable 10/23/18 04:05: PT 14.4, INR 1.1, APTT 35.7, Fibrinogen 571 H 10/23/18 04:05: WBC 17.5 H, RBC 2.82 L, Hgb 8.1 L, Hct 24.2 L, MCV 85.8, MCH 28.7, MCHC 33.5, RDW 16.7 H, RDW Differential 51.7 H, Plt Count 105 L, MPV 10.2, Immature Gran % (Auto) 0.600, Neut % (Auto) 82.2 H, Lymph % (Auto) 9.8 L, [place] % (Auto) 7.2, Eos % (Auto) 0.1, Baso % (Auto) 0.1, Absolute Neuts (auto) 14.4 H, Absolute Lymphs (auto) 1.72, Total Counted Not Reportable 10/23/18 07:50: WBC 17.9 H, RBC 2.84 L, Hgb 8.2 L, Hct 24.1 L, MCV 84.9, MCH 28.9, MCHC 34.0, RDW 16.7 H, RDW Differential 51.3 H, Plt Count 92 L, MPV 9.2, Immature Gran % (Auto) 0.800, Neut % (Auto) 83.2 H, Lymph % (Auto) 8.5 L, [place] % (Auto) 7.2, Eos % (Auto) 0.2, Baso % (Auto) 0.1, Absolute Neuts (auto) 14.9 H, Absolute Lymphs (auto) 1.52, Total Counted Not Reportable, Differential Comment SCANNED Current Medications Acetaminophen (Tylenol) 1,000 mg PO Q8H PRN PRN PRN Reason: MILD PAIN (1-3/10) Bisacodyl (Dulcolax) 10 mg RECTAL UD PRN PRN Reason: If no BM Docusate Sodium (Colace) 100 mg PO BID [facility] Last Admin: 10/22/18 21:22 Dose: 100 mg Hydrocortisone (Hytone) 1 applic TOPICAL TID PRN PRN; Protocol PRN Reason: Discomfort Hydromorphone HCl (Dilaudid Inj) 0.5 mg IV Q3H PRN PRN PRN Reason: SEVERE PAIN (6-10/10) Last Admin: 10/23/18 07:05 Dose: 0.5 mg Sodium Chloride () 500 mls @ 15 mls/hr IV .[id number] [facility] Last Admin: 10/22/18 04:23 Dose: Not Given Sodium Chloride () 1,000 mls @ 125 mls/hr IV .Q8H [facility] Last Admin: 10/23/18 07:00 Dose: 125 mls/hr Labetalol HCl (Trandate) 200 mg PO TID [facility] Melatonin (Melatonin) 3 mg PO QHS [facility] Last Admin: 10/22/18 21:22 Dose: 3 mg Methylergonovine Maleate (Methergine) 0.2 mg IM X1 PRN PRN Reason: Bleeding Metoclopramide HCl (Reglan) 10 mg IV Q4H PRN PRN PRN Reason: Nausea/Vomiting Last Admin: 10/22/18 09:47 Dose: 10 mg Naproxen (Naprosyn) 250 - 500 mg PO Q8H PRN PRN PRN Reason: Mild Pain (1-3/10) Ondansetron HCl (Zofran) 4 mg IV Q4H PRN PRN PRN Reason: Nausea Last Admin: 10/21/18 22:28 Dose: 4 mg Oxycodone HCl (Oxyir) 5 - 10 mg PO Q4H PRN PRN PRN Reason: MOD-SEVERE PAIN (4-10/10) Promethazine HCl (Phenergan) 12.5 mg IV Q4H PRN PRN PRN Reason: NAUSEA/VOMITING Senna/Docusate Sodium (Senokot-S, Tracie-Colace) 1 tablet PO BID [facility] Last Admin: 10/22/18 21:22 Dose: 1 tablet Simethicone (Mylicon) 80 mg PO PCHS PRN PRN Reason: Indigestion/stomach pain Last Admin: 10/20/18 14:10 Dose: 80 mg Sodium Chloride () 5 - 15 ml IV UD PRN PRN Reason: SALINE FLUSH Last Admin: 10/23/18 07:05 Dose: 10 ml Sodium Chloride () 5 - 15 ml IV UD PRN PRN Reason: SALINE FLUSH Medical Necessity - Tobacco Use Smoking Status: Never smoker Assessment/Plan All Active Problems Acute blood loss anemia (Acute) Hypocalcemia (Acute) Hyperkalemia (Acute) Hyponatremia (Acute) Ileus (Acute) 1. Severe anemia secondary to postop blood loss intraperitoneum, Hb is 8.2, s/p 3 units pRBC HH have been stable. Patient remains tachycardic. Stable vitals Discussed with OBGYN, will monitor further, possible repeat CT scan of abdomen later to reassess intraabdominal bleeding. 2. Hypertension, admitted with severe ecclampsia, BP elevated also from pain and discomfort, Started on Labetalol po, will continue to monitor. 3. Electrolyte imbalances, resolved 4. Postop ileus, resolved 5. Preeclampsia resolved 6. Leucocytosis, reactive, no fever 7. Thrombocytopenia, Plt 92, will monitor 8. DVT prophylaxis with SCDs Code Visit Inpatient E&M: 40737 Subs Hosp L2
--- NOTE | 2018-10-23 09:53 | PN.OBGYN_ITS ---
Patient Problems: Active and Suspected Problems Acute blood loss anemia (Acute) Hypocalcemia (Acute) Hyperkalemia (Acute) Hyponatremia (Acute) Ileus (Acute) Subjective: Patient is doing okay this morning. She is irritated and having gas pains that are making her uncomfortable. Her mother and grandmother are at bedside for support. She is passing flatus and denies N/V. She denies abdominal pain other than gas pain. - Physical Exam General: Alert, No apparent distress HEENT: Atraumatic Lungs: - - No increased resp effort Abdomen: - - Patient visibly less distended, she is refusing an exam at this time Extremities: No edema Skin: No rashes Neurological: Neuro grossly intact Psych/Mental Status: Appropriate Vital Signs Temp Pulse Resp BP Pulse Ox 98.2 F 113 H 18 152/112 H 98 10/23/18 06:55 10/23/18 07:31 10/23/18 06:55 10/23/18 06:55 10/23/18 06:55 Oxygen Delivery Method Room Air Weight: 146 lb 9.718 oz Body Mass Index (BMI) 21.6 Intake and Output for Last 24 Hours 10/21/18 10/22/18 10/23/18 23:59 23:59 23:59 Intake Total 3561 / 3561 2805 / 2805 1291 / 1291 Output Total 1205 / 1205 4025 / 4025 1250 / 1250 Balance 2356 / 2356 -1220 / -1220 41 / 41 Microbiology Past 72 Hours 10/19/18 Unknown Group B Streptococcus Culture - Final Genital vaginal Group B Beta Streptococcus is not isolated. Laboratory Tests Past 24 Hrs 10/19/18 10/19/18 10/22/18 12:50 12:50 15:25 WBC RBC Hgb Hct MCV MCH MCHC RDW RDW Differential Plt Count MPV Immature Gran % (Auto) Neut % (Auto) Lymph % (Auto) [place] % (Auto) Eos % (Auto) Baso % (Auto) Absolute Neuts (auto) Absolute Lymphs (auto) Total Counted Differential Comment PT INR APTT Fibrinogen Blood Type O POSITIVE Antibody Screen NEGATIVE Crossmatch See Detail See Detail 10/22/18 10/22/18 10/23/18 15:25 20:08 00:02 WBC 17.0 H RBC 2.73 L Hgb 8.1 L Hct 23.8 L MCV 87.2 MCH 29.7 MCHC 34.0 RDW 15.8 H RDW Differential 48.3 H Plt Count 105 L MPV 10.3 Immature Gran % (Auto) 1.000 H Neut % (Auto) 82.1 H Lymph % (Auto) 10.0 L [place] % (Auto) 6.7 Eos % (Auto) 0.1 Baso % (Auto) 0.1 Absolute Neuts (auto) 14.0 H Absolute Lymphs (auto) 1.70 Total Counted Not Reportable Differential Comment PT 14.1 INR 1.1 APTT 36.8 H Fibrinogen 545 H Blood Type Antibody Screen Crossmatch See Detail 10/23/18 10/23/18 10/23/18 04:05 04:05 07:50 WBC 17.5 H 17.9 H RBC 2.82 L 2.84 L Hgb 8.1 L 8.2 L Hct 24.2 L 24.1 L MCV 85.8 84.9 MCH 28.7 28.9 MCHC 33.5 34.0 RDW 16.7 H 16.7 H RDW Differential 51.7 H 51.3 H Plt Count 105 L 92 L MPV 10.2 9.2 Immature Gran % (Auto) 0.600 0.800 Neut % (Auto) 82.2 H 83.2 H Lymph % (Auto) 9.8 L 8.5 L [place] % (Auto) 7.2 7.2 Eos % (Auto) 0.1 0.2 Baso % (Auto) 0.1 0.1 Absolute Neuts (auto) 14.4 H 14.9 H Absolute Lymphs (auto) 1.72 1.52 Total Counted Not Reportable Not Reportable Differential Comment SCANNED PT 14.4 INR 1.1 APTT 35.7 Fibrinogen 571 H Blood Type Antibody Screen Crossmatch Medical Necessity - Tobacco Use Smoking Status: Never smoker Assessment/Plan All Active Problems Acute blood loss anemia (Acute) Hypocalcemia (Acute) Hyperkalemia (Acute) Hyponatremia (Acute) Ileus (Acute) A/P post-op from section for severe pre-eclampsia with intra-abdominal bleed - Severe pre-e: Treated several severe range BP's last night and this morning with IV labetalol with return to mild range. Labetalol 100mg PO was started, but increased to 200 mg TID today. Pt is agitated and upset today, which could contribute some to her elevated BP's. She also has a NÚÑEZ with a h/o of chronic migraines, and her NÚÑEZ could be secondary to being NPO for several days. Continue to closely monitor BP's. No other symptoms of pre-e - Intra-abdominal bleeding: Pt is stable at this time. Hgb stable x 3 after an appropriate rise. Has received a total of 5 units PRBC's. Slightly tachycardic still. Will d/c serial CBC's. Ordered for CBC w/ diff in AM. WBC increasing but likely reactive as pt has not had any fevers. Seems active bleeding has stopped. Will watch for signs of infection at this time, and consider a repeat CT scan - Ileus: Will start clear liquids this morning Patient examined and discussed with Dr. Mix.
[2018-10-23] MEDS: Labetalol 200 MG Tablet PO ×2 (11:44→21:31)
--- NOTE | 2018-10-23 12:10 | NURSING ---
Called OB to pickle cutter breast milk.
[2018-10-23] MEDS: Naproxen 250 MG Tablet PO (12:50)
[2018-10-23] MEDS: oxyCODONE 5 MG Tablet PO ×2 (18:17→23:03)
[2018-10-23] MEDS: NIFEdipine 30 MG Tablet PO (18:17)
--- NOTE | 2018-10-23 20:45 | NURSING ---
Patient up ambulating. Reports scant amount of drainage and denies needing supplies at this time. Patient encouraged to call RN when back in bed for fundal exam.
[2018-10-23] MEDS: MELATONIN 3 MG TABLET PO (23:04)
[2018-10-24] VITALS (7 sets, daily range): BP systolic 127–135; BP diastolic 71–79; PULSE 96–108; RESP 16–18; TEMP 36.8–37.1; O2SAT 97–99
--- NOTE | 2018-10-24 00:21 | NURSING ---
Patient up to chair. Fundal exam attempted. decreased distention noted from previous shift. Still unable to palpate fundus. Patient reporting scant bleeding. Pericare completed per patient will assistance of mother. No blood noted to pad at this time. Patient reporting pain to right nipple. States that it was bleeding following pumping. Lansinoh cream provided and patient educated on also hand expression. Patient denies needs at this time. Milk brought to unit to be stored for patient.
[2018-10-24] MEDS: Naproxen 250 MG Tablet PO (01:37)
[2018-10-24] MEDS: oxyCODONE 5 MG Tablet PO (04:52)
--- NOTE | 2018-10-24 05:08 | NURSING ---
Pt resting in recliner in room. Pt mother voices that she just finally was able to fall asleep. awakens briefly for fundal exam. At this time abdomen is softly distended, however currently not able to palpate fundus. Pt denies passing flatus. Bowel sounds tinkling to left upper, lower and right upper. Hypoactive to right lower. Pt encourage to walk more this morning and throughout the day. Primary nurse voiced that patient has been taking pain medication frequently. Informed to encourage pt to ambulate more frequently.
[2018-10-24 06:28] LABS: Absolute Lymphocyte Count 1.38 X10^3/ul (0.83-4.51); Basophil# 0.02 X10^3/uL; Basophil% 0.1 % (0-1); Eosinophil# 0.18 X10^3/uL; Hematocrit 25.4 % (37-47); Hemoglobin 8.2 g/dl (12.0-15.0); Lymphocyte # 1.38 X10^3/ul (4.0); Lymphocyte % 7.6 % (19-41); Mean Corp Hgb Conc 32.3 g/gl (32-36); Mean Corpuscular Hgb 28.4 pg (27.0-32.0); Mean Corpuscular Volume 87.9 fL (81-99); Mean Platelet Vol. 10.4 fl (6.2-12.0); Monocyte# 1.36 X10^3/uL; Monocyte% 7.5 % (0-10); Neutrophil # 14.98 X10^3/uL (2.7-7.7); Neutrophil % 82.7 % (47-70); Platelet Count 153 K/mm3 (150-450); RBC Distribution Width CV 16.6 % (11.6-14.6); RBC Distribution Width SD 51.3 fl (35.1-43.9); Red Blood Count 2.89 M/mm3 (4.2-5.4); White Blood Count 18.1 K/mm3 (4.4-11.0)
[2018-10-24 06:29] LABS: POSITIVE COUNT NO; POSITIVE DIFFERENTIAL NO; POSITIVE MORPHOLOGY NO
[2018-10-24] MEDS: Labetalol 200 MG Tablet PO ×2 (06:31→13:48)
[2018-10-24 06:39] LABS: ALB/GLOB Ratio 0.5 RATIO (0.9-2.4); AST(SGOT) 26 U/L (15-37); Alanine Aminotransfer ALT/SGPT 18 U/L (13-56); Albumin, Serum 2.1 g/dL (3.2-5.0); Alkaline Phosphatase 149 U/L (45-117); Anion Gap 11 (5-15); BUN 8 mg/dL (7-18); BUN/Creat Ratio 17.7 RATIO (10-20); Calcium,Total 8.1 mg/dL (8.5-10.1); Chloride 109 mmol/L (98-107); Creatinine, Serum 0.45 mg/dL (0.55-1.02); EST Glomerular Filtration Rate 184 mL/min (>60); Est Glom Filt Rate - Afr Amer 223 mL/min (>60); Estimated Creatinine Clearance 206.67 ml/min; Globulin 3.9 g/dL (2.2-4.2); Glucose 87 mg/dL (74-106); Potassium 3.6 mmol/L (3.5-5.1); Sodium Level 138 mmol/L (136-145)
--- NOTE | 2018-10-24 07:10 | PCM.PN.OB ---
Subjective: Patient is doing well this morning. Her mother is at bedside with her. She reports she tolerated clears yesterday without nausea or vomiting. Still passing flatus and noticing abdominal cramping with the flatus. She has been up ambulating without any lightheadedness or dizziness. Her abdominal pain feels improved when she is up ambulating. She is spontaneously voiding without difficulty. - Physical Exam General: Alert, No apparent distress HEENT: Atraumatic Lungs: - - No increased resp effort Abdomen: Soft, Non Tender, - - +Less distended than prior, no rebounding, no gaurding, no rigidity Extremities: No edema Skin: No rashes Neurological: Neuro grossly intact Psych/Mental Status: Normal Affect, Appropriate Vital Signs Temp Pulse Resp BP Pulse Ox 98.7 F 96 18 135/72 H 97 10/24/18 03:30 10/24/18 03:30 10/24/18 03:30 10/24/18 06:29 10/24/18 03:30 Oxygen Delivery Method Room Air Weight: 146 lb 9.718 oz Body Mass Index (BMI) 21.6 Intake and Output for Last 24 Hours 10/22/18 10/23/18 10/24/18 23:59 23:59 23:59 Intake Total 2805 / 2805 2351 / 2351 360 / 360 Output Total 4025 / 4025 1575 / 1575 700 / 700 Balance -1220 / -1220 776 / 776 -340 / -340 Microbiology Past 72 Hours 10/19/18 Unknown Group B Streptococcus Culture - Final Genital vaginal Group B Beta Streptococcus is not isolated. Laboratory Tests Past 24 Hrs 10/23/18 10/24/18 10/24/18 07:50 05:40 05:40 WBC 17.9 H 18.1 H RBC 2.84 L 2.89 L Hgb 8.2 L 8.2 L Hct 24.1 L 25.4 L MCV 84.9 87.9 MCH 28.9 28.4 MCHC 34.0 32.3 RDW 16.7 H 16.6 H RDW Differential 51.3 H 51.3 H Plt Count 92 L 153 MPV 9.2 10.4 Immature Gran % (Auto) 0.800 1.100 H Neut % (Auto) 83.2 H 82.7 H Lymph % (Auto) 8.5 L 7.6 L [place] % (Auto) 7.2 7.5 Eos % (Auto) 0.2 1.0 Baso % (Auto) 0.1 0.1 Absolute Neuts (auto) 14.9 H 15.0 H Absolute Lymphs (auto) 1.52 1.38 Total Counted Not Reportable Not Reportable Differential Comment SCANNED Sodium 138 Potassium 3.6 Chloride 109 H Carbon Dioxide 18.0 L Anion Gap 11 BUN 8 Creatinine 0.45 L Estim Creat Clear Calc 206.67 Est GFR (MDRD) Af Amer 223 Est GFR (MDRD) Non-Af 184 BUN/Creatinine Ratio 17.7 Glucose 87 Calcium 8.1 L Total Bilirubin 0.80 AST 26 ALT 18 Alkaline Phosphatase 149 H Total Protein 6.0 L Albumin 2.1 L Globulin 3.9 Albumin/Globulin Ratio 0.5 L Medical Necessity - Tobacco Use Smoking Status: Never smoker Assessment/Plan All Active Problems Acute blood loss anemia (Acute) Hypocalcemia (Acute) Hyperkalemia (Acute) Hyponatremia (Acute) Ileus (Acute) Post-op s/p section for severe pre-eclampsia - Severe pre-e: BP's were in the severe range yesterday. Started Procardia 30mg XR yesterday afternoon, and BP's now better controlled. Currently on Labetalol 200mg TID and Procardia 30mg XR daily. Pt has mild NÚÑEZ this AM. H/o chronic NÚÑEZ's. Platelets, creatinine, AST/ALT WNL this AM - Ileus: Tolerating clears. Will transition to full liquids this AM. Passing flatus - Intra-abdominal bleed: VSS, Hgb stable this AM. Abd exam benign. Consider repeat CT scan this week, and will continue to watch for signs of infection
[2018-10-24] MEDS: NIFEdipine 30 MG Tablet PO (10:08)
--- NOTE | 2018-10-24 11:44 | PCM.PN.HOSP ---
Subjective: Patient was seen and dominant. She feels much better. Has had multiple bowel movement. Pain is much better. Abdomen feels soft for her. Tolerating improvement in her diet. Patient is eager to be discharged. Vitals/I&O's: Vital Signs Temp Pulse Resp BP Pulse Ox 98.3 F 108 H 16 129/78 H 98 10/24/18 10:04 10/24/18 11:00 10/24/18 10:04 10/24/18 10:04 10/24/18 10:04 Oxygen Delivery Method Room Air Weight: 66.5 kg Body Mass Index (BMI) 21.6 Intake and Output for Last 24 Hours 10/22/18 10/23/18 10/24/18 23:59 23:59 23:59 Intake Total 2805 / 2805 2351 / 2351 360 / 360 Output Total 4025 / 4025 1575 / 1575 700 / 700 Balance -1220 / -1220 776 / 776 -340 / -340 General: Alert, Oriented x3, Cooperative, No apparent distress HEENT: Atraumatic, PERRLA, EOMI, Normocephalic Oral: Moist Mucosa Neck: Supple, No JVD, Negative Carotid Bruits Lungs: Clear to auscultation, Normal air movement Cardiovascular: Regular rate, Regular Rhythm, Normal S1, Normal S2, No murmurs Abdomen: Bowel Sounds Present, Soft, Non Tender, No Hepato-splenomegaly, Distended, - - Abdomen feels softer, bowel sounds present Extremities: No edema Skin: No rashes, No breakdown Musculoskeletal: No Tenderness to Palpation of Joints or Extremities Neurological: Cranial nerves II-XII grossly intact Psych/Mental Status: Normal Affect, Appropriate Microbiology Past 72 Hours 10/19/18 Unknown Genital vaginal Group B Streptococcus Culture - Final Group B Beta Streptococcus is not isolated. Laboratory Results 10/24/18 05:40: WBC 18.1 H, RBC 2.89 L, Hgb 8.2 L, Hct 25.4 L, MCV 87.9, MCH 28.4, MCHC 32.3, RDW 16.6 H, RDW Differential 51.3 H, Plt Count 153, MPV 10.4, Immature Gran % (Auto) 1.100 H, Neut % (Auto) 82.7 H, Lymph % (Auto) 7.6 L, [place] % (Auto) 7.5, Eos % (Auto) 1.0, Baso % (Auto) 0.1, Absolute Neuts (auto) 15.0 H, Absolute Lymphs (auto) 1.38, Total Counted Not Reportable 10/24/18 05:40: Sodium 138, Potassium 3.6, Chloride 109 H, Carbon Dioxide 18.0 L, Anion Gap 11, BUN 8, Creatinine 0.45 L, Estim Creat Clear Calc 206.67, Est GFR (MDRD) Af Amer 223, Est GFR (MDRD) Non-Af 184, BUN/Creatinine Ratio 17.7, Glucose 87, Calcium 8.1 L, Total Bilirubin 0.80, AST 26, ALT 18, Alkaline Phosphatase 149 H, Total Protein 6.0 L, Albumin 2.1 L, Globulin 3.9, Albumin/Globulin Ratio 0.5 L Current Medications Acetaminophen (Tylenol) 1,000 mg PO Q8H PRN PRN PRN Reason: MILD PAIN (1-310) Bisacodyl (Dulcolax) 10 mg RECTAL UD PRN PRN Reason: If no BM Docusate Sodium (Colace) 100 mg PO BID [facility] Last Admin: 10/24/18 10:06 Dose: Not Given Hydrocortisone (Hytone) 1 applic TOPICAL TID PRN PRN; Protocol PRN Reason: Discomfort Hydromorphone HCl (Dilaudid Inj) 0.5 mg IV Q3H PRN PRN PRN Reason: SEVERE PAIN (6-10/10) Last Admin: 10/23/18 07:05 Dose: 0.5 mg Sodium Chloride () 500 mls @ 15 mls/hr IV .[id number] [facility] Last Admin: 10/23/18 11:33 Dose: Not Given Labetalol HCl (Trandate) 200 mg PO TID [facility] Last Admin: 10/24/18 06:31 Dose: 200 mg Melatonin (Melatonin) 3 mg PO QHS [facility] Last Admin: 10/23/18 23:04 Dose: 3 mg Methylergonovine Maleate (Methergine) 0.2 mg IM X1 PRN PRN Reason: Bleeding Metoclopramide HCl (Reglan) 10 mg IV Q4H PRN PRN PRN Reason: Nausea/Vomiting Last Admin: 10/22/18 09:47 Dose: 10 mg Naproxen (Naprosyn) 250 - 500 mg PO Q8H PRN PRN PRN Reason: Mild Pain (1-10) Last Admin: 10/24/18 01:37 Dose: 500 mg Naproxen (Naprosyn) 250 - 500 mg PO Q8H PRN PRN PRN Reason: Mild Pain (1-3/10) Nifedipine (Procardia Xl) 30 mg PO DAILY [facility] Last Admin: 10/24/18 10:08 Dose: 30 mg Ondansetron HCl (Zofran) 4 mg IV Q4H PRN PRN PRN Reason: Nausea Last Admin: 10/21/18 22:28 Dose: 4 mg Oxycodone HCl (Oxyir) 5 - 10 mg PO Q4H PRN PRN PRN Reason: MOD-SEVERE PAIN (-06/22) Last Admin: 10/24/18 04:52 Dose: 5 mg Promethazine HCl (Phenergan) 12.5 mg IV Q4H PRN PRN PRN Reason: NAUSEA/VOMITING Senna/Docusate Sodium (Senokot-S, Tracie-Colace) 1 tablet PO BID [facility] Last Admin: 10/24/18 10:06 Dose: Not Given Simethicone (Mylicon) 80 mg PO PCHS PRN PRN Reason: Indigestion/stomach pain Last Admin: 10/23/18 11:44 Dose: 80 mg Sodium Chloride () 5 - 15 ml IV UD PRN PRN Reason: SALINE FLUSH Last Admin: 10/23/18 11:44 Dose: 10 ml Sodium Chloride () 5 - 15 ml IV UD PRN PRN Reason: SALINE FLUSH Medical Necessity - Tobacco Use Smoking Status: Never smoker Assessment/Plan All Active Problems Acute blood loss anemia (Acute) Hypocalcemia (Acute) Hyperkalemia (Acute) Hyponatremia (Acute) Ileus (Acute) 1. Severe anemia secondary to postop blood loss into intraperitoneum, Hb remains stable at 8.2, s/p 5 units pRBC total Further management will be per BORDERER 2. Hypertension, admitted with severe ecclampsia, her pressure is better controlled on labetalol and Procardia. 3. Electrolyte imbalances, resolved 4. Postop ileus, resolved 5. Preeclampsia resolved 6. Leucocytosis, reactive, no fever 7. Thrombocytopenia, resolving, platelet count appears to be improving. 8. DVT prophylaxis with SCDs Code Visit Inpatient E&M: 93925 Subs Hosp L2
--- NOTE | 2018-10-24 12:28 | PN.OBGYN_ITS ---
Subjective: pt seen up to chair - pt reports pain is controlled. pt denies CP, SOB, dizziness. pt reports minimal lochia. Passing flatus, ++BM, voiding w/o diff iculty. pt denies N/V. pt would like DC home if possible. - Physical Exam General: Alert, Oriented x3 Abdomen: Soft, Passing Flatus, - - mildly distened- per Hospitalist- much improvement. Incision dressing is dry and intact. Vital Signs Temp Pulse Resp BP Pulse Ox 98.3 F 108 H 16 129/78 H 98 10/24/18 10:04 10/24/18 11:00 10/24/18 10:04 10/24/18 10:04 10/24/18 10:04 Oxygen Delivery Method Room Air Weight: 66.5 kg Body Mass Index (BMI) 21.6 Intake and Output for Last 24 Hours 10/22/18 10/23/18 10/24/18 23:59 23:59 23:59 Intake Total 2805 / 2805 2351 / 2351 360 / 360 Output Total 4025 / 4025 1575 / 1575 700 / 700 Balance -1220 / -1220 776 / 776 -340 / -340 Microbiology Past 72 Hours 10/19/18 Unknown Group B Streptococcus Culture - Final Genital vaginal Group B Beta Streptococcus is not isolated. Laboratory Tests Past 24 Hrs 10/24/18 10/24/18 05:40 05:40 WBC 18.1 H RBC 2.89 L Hgb 8.2 L Hct 25.4 L MCV 87.9 MCH 28.4 MCHC 32.3 RDW 16.6 H RDW Differential 51.3 H Plt Count 153 MPV 10.4 Immature Gran % (Auto) 1.100 H Neut % (Auto) 82.7 H Lymph % (Auto) 7.6 L [place] % (Auto) 7.5 Eos % (Auto) 1.0 Baso % (Auto) 0.1 Absolute Neuts (auto) 15.0 H Absolute Lymphs (auto) 1.38 Total Counted Not Reportable Sodium 138 Potassium 3.6 Chloride 109 H Carbon Dioxide 18.0 L Anion Gap 11 BUN 8 Creatinine 0.45 L Estim Creat Clear Calc 206.67 Est GFR (MDRD) Af Amer 223 Est GFR (MDRD) Non-Af 184 BUN/Creatinine Ratio 17.7 Glucose 87 Calcium 8.1 L Total Bilirubin 0.80 AST 26 ALT 18 Alkaline Phosphatase 149 H Total Protein 6.0 L Albumin 2.1 L Globulin 3.9 Albumin/Globulin Ratio 0.5 L Medical Necessity - Tobacco Use Smoking Status: Never smoker Assessment/Plan All Active Problems Acute blood loss anemia (Acute) Hypocalcemia (Acute) Hyperkalemia (Acute) Hyponatremia (Acute) Ileus (Acute) 23yo POD# 5 s/p C/S with Acute blood loss anemia, severe PRE E, Ileus 1) doing well today- stable hg/hct and asymptomatic for Acute blood loss anemia 2) Ileus resolved- passing flatus and +BM 3) BP well controlled on Labetalol and Procardia 4) reviewed dc home- restriction reviewed. reviewed possible infection post op from aggregate of clots- if fever, pain, heavy vaginal bleeding, dizziness, CP or other symptoms will notify office or go to hospital 5) Hospitalist Dr. Mix - reviewed earlier today and feels patient is stable for dc home as well 6) RTO for visit Wednesday10/27/18 for POST OP CHECK with Dr. Valenzuela 7) Remove Dressing 10/26/18 8) medications at dc home reviewed
--- NOTE | 2018-10-24 12:34 | DCINST_ITS ---
Discharge Diet: No Restrictions Discharge Activity: Return to Normal Activity, May Not Drive - for 2 weeks, May not drive while taking narcotic pain medications., May Shower, May Take a Tub Bath - in 7 days. May resume sexual activity in: 4-6 weeks Lifting Restrictions: 20 pounds Additional Activity Instructions:: Nothing in the vagina for 4-6 weeks. You may return to work/school in 6 weeks. Call your doctor if your incision/area has: Continuous Slow Oozing, Sudden Increased Bleeding, Increased Pain/ Swelling, Increased Redness, Foul Smelling Discharge Call your doctor if you observe: Fever of 101 or Higher, Using more than one pad per hour - for 2 hours Suture Line Care: Avoid Pulling/Pushing, Avoid Pinching/Bending Cleanse incision/area with: Keep Dressing Clean & Dry Additional Instructions: If you experience any of the following, contact your healthcare provider. * Bleeding that soaks a pad every hour for 2 hours * Fever 100.4 or higher * Unrelieved incision or abdominal pain * Swelling, redness, discharge or bleeding from your incision or episiotomy site * Your incision begins to separate * Problems urinating (including inability to urinate or burning while urinating). * Visual changes * Severe headache * Flu-like symptoms * Pain or redness in one of both of your breasts * Pain, warmth, tenderness or swelling in your legs, especially the calf area * Frequent nausea and vomiting * Symptoms of depression or anxiety If you experience any of the following, call 911 or go to the nearest Emergency Room. * Chest pain * Problems breathing * Seizure activity * Partial or complete paralysis of a body part, slurred speech, weakness or drooping of the face, or a sudden inability to walk or hold your balance Allergies/Adverse Reactions: Allergies No Known Allergies Allergy (Verified 09/16/14 01:58) Medications to take at Discharge Pnv No.95/Ferrous Fum/Folic AC [ Tablet] 10/19/18 Acetaminophen [Tylenol] 1,000 mg PO Q8H PRN PRN #60 tablet 10/24/18 Docusate Sodium [Colace] 100 mg PO BID #30 capsule 10/24/18 Labetalol [Trandate (Beta Marquez)] 200 mg PO TID #90 tablet 10/24/18 Melatonin 3 mg PO QHS tablet 10/24/18 NIFEdipine [Procardia XL] 30 mg PO DAILY #30 tablet 10/24/18 Oxycodone [Oxyir] 5 mg PO Q6H PRN PRN 7 Days #24 tablet 10/24/18 SimETHICONE [Mylicon] 80 mg PO PCHS PRN #30 tablet 10/24/18 The following prescriptions were given: Oxycodone [Oxyir] 5 mg PO Q6H PRN PRN 7 Days #24 tablet PRN Reason: Mod-Severe Pain (4-06/22) Acetaminophen [Tylenol] 1,000 mg PO Q8H PRN PRN #60 tablet PRN Reason: Mild Pain (1-11/20) NIFEdipine [Procardia XL] 30 mg PO DAILY #30 tablet SimETHICONE [Mylicon] 80 mg PO PCHS PRN #30 tablet PRN Reason: Indigestion/stomach pain Docusate Sodium [Colace] 100 mg PO BID #30 capsule Labetalol [Trandate (Beta Marquez)] 200 mg PO TID #90 tablet Follow-Up: Call to make an appointment with your doctor for an incision check in 1-2 weeks. You will also need a 6 week post- follow up appointment. Test results from this visit will be discussed in further detail at your follow- up appointment, if applicable. Please Follow Up With: Lucy Valenzuela MD - 10/26/18 at 9am for Wound check and BP check When: You will need a post- check in 6 weeks. Primary Care Physician: Sirena Blue MD [Primary Care Provider] -
--- NOTE | 2018-10-24 12:36 | PCM.DC.BLA ---
Discharge Summary Date of Admission: 10/19/18 Date of Discharge: 10/24/18 Summary: pt was admitted to [facility] on 10/19/18 for preeclampsia with severe features and IUGR fetus. Started on Magnesium sulfate and underwent primary LTCS by Dr. Lucy Valenzuela. Post OP patient was symptomatic for acute blood loss anemia and Ileus and electolyte disturbance. Pt had NG tube placed and received total of 5Units PRBC. Medicine was consulted and together managed patient with ammonia technician. pt stabilized and was discharged home in stable condition on 10/24/18. pt will have close follow up with BISQUE CLEANER on 10/27/18. Pt will remain on BP medications labetalol and Procardia at this time. - Physical Exam Vital Signs Temp Pulse Resp BP Pulse Ox 98.3 F 108 H 16 129/78 H 98 10/24/18 10:04 10/24/18 11:00 10/24/18 10:04 10/24/18 10:04 10/24/18 10:04 Oxygen Delivery Method Room Air Weight: 66.5 kg Body Mass Index (BMI) 21.6 Intake and Output for Last 24 Hours 10/22/18 10/23/18 10/24/18 23:59 23:59 23:59 Intake Total 2805 / 2805 2351 / 2351 360 / 360 Output Total 4025 / 4025 1575 / 1575 700 / 700 Balance -1220 / -1220 776 / 776 -340 / -340 Microbiology Past 72 Hours 10/19/18 Unknown Group B Streptococcus Culture - Final Genital vaginal Group B Beta Streptococcus is not isolated. Laboratory Tests Past 24 Hrs 10/24/18 10/24/18 05:40 05:40 WBC 18.1 H RBC 2.89 L Hgb 8.2 L Hct 25.4 L MCV 87.9 MCH 28.4 MCHC 32.3 RDW 16.6 H RDW Differential 51.3 H Plt Count 153 MPV 10.4 Immature Gran % (Auto) 1.100 H Neut % (Auto) 82.7 H Lymph % (Auto) 7.6 L [place] % (Auto) 7.5 Eos % (Auto) 1.0 Baso % (Auto) 0.1 Absolute Neuts (auto) 15.0 H Absolute Lymphs (auto) 1.38 Total Counted Not Reportable Sodium 138 Potassium 3.6 Chloride 109 H Carbon Dioxide 18.0 L Anion Gap 11 BUN 8 Creatinine 0.45 L Estim Creat Clear Calc 206.67 Est GFR (MDRD) Af Amer 223 Est GFR (MDRD) Non-Af 184 BUN/Creatinine Ratio 17.7 Glucose 87 Calcium 8.1 L Total Bilirubin 0.80 AST 26 ALT 18 Alkaline Phosphatase 149 H Total Protein 6.0 L Albumin 2.1 L Globulin 3.9 Albumin/Globulin Ratio 0.5 L
--- NOTE | 2018-10-24 12:41 | DS.PCM_ITS ---
Discharge Summary Date of Admission: 10/19/18 Date of Discharge: 10/24/18 Summary: pt was admitted to [facility] on 10/19/18 for preeclampsia with severe features and IUGR fetus. Started on Magnesium sulfate and underwent primary LTCS by Dr. Lucy Valenzuela. Post OP patient was symptomatic for acute blood loss anemia and Ileus and electolyte disturbance. Pt had NG tube placed and received total of 5Units PRBC. Medicine was consulted and together managed patient with pit boss. pt stabilized and was discharged home in stable condition on 10/24/18. pt will have close follow up with COMMODITY LOAN CLERK on 10/27/18. Pt will remain on BP medications labetalol and Procardia at this time. - Physical Exam Vital Signs Temp Pulse Resp BP Pulse Ox 98.3 F 108 H 16 129/78 H 98 10/24/18 10:04 10/24/18 11:00 10/24/18 10:04 10/24/18 10:04 10/24/18 10:04 Oxygen Delivery Method Room Air Weight: 66.5 kg Body Mass Index (BMI) 21.6 Intake and Output for Last 24 Hours 10/22/18 10/23/18 10/24/18 23:59 23:59 23:59 Intake Total 2805 / 2805 2351 / 2351 360 / 360 Output Total 4025 / 4025 1575 / 1575 700 / 700 Balance -1220 / -1220 776 / 776 -340 / -340 Microbiology Past 72 Hours 10/19/18 Unknown Group B Streptococcus Culture - Final Genital vaginal Group B Beta Streptococcus is not isolated. Laboratory Tests Past 24 Hrs 10/24/18 10/24/18 05:40 05:40 WBC 18.1 H RBC 2.89 L Hgb 8.2 L Hct 25.4 L MCV 87.9 MCH 28.4 MCHC 32.3 RDW 16.6 H RDW Differential 51.3 H Plt Count 153 MPV 10.4 Immature Gran % (Auto) 1.100 H Neut % (Auto) 82.7 H Lymph % (Auto) 7.6 L [place] % (Auto) 7.5 Eos % (Auto) 1.0 Baso % (Auto) 0.1 Absolute Neuts (auto) 15.0 H Absolute Lymphs (auto) 1.38 Total Counted Not Reportable Sodium 138 Potassium 3.6 Chloride 109 H Carbon Dioxide 18.0 L Anion Gap 11 BUN 8 Creatinine 0.45 L Estim Creat Clear Calc 206.67 Est GFR (MDRD) Af Amer 223 Est GFR (MDRD) Non-Af 184 BUN/Creatinine Ratio 17.7 Glucose 87 Calcium 8.1 L Total Bilirubin 0.80 AST 26 ALT 18 Alkaline Phosphatase 149 H Total Protein 6.0 L Albumin 2.1 L Globulin 3.9 Albumin/Globulin Ratio 0.5 L
[2018-10-24] MEDS: Acetaminophen 500 MG Tablet 1000 MG PO (13:50)
[2018-10-24 13:52] LABS: Pathologist Review Reviewed
== END 2018-10-24 15:00 | disposition home or self-care (01) | DRG 540 ==
LOC: WPOUT 13:12 → WP 20:13 → PCU 10-21 05:59
PROVIDERS: Hospitalist; Obstetrics & Gynecology; Admitting Provider Obstetrics & Gynecology; Family Provider Pediatrics; PCP Pediatrics; Referring Provider Obstetrics & Gynecology; Visit Provider Internal Medicine
DX: O76 Abnormality in fetal heart rate and rhythm complicating labor and delivery (principal); O14.14 Severe pre-eclampsia complicating childbirth; O36.5930 Maternal care for other known or suspected poor fetal growth, third trimester, not applicable or unspecified; O60.14X0 Preterm labor third trimester with preterm delivery third trimester, not applicable or unspecified; O90.81 Anemia of the puerperium; D62 Acute posthemorrhagic anemia; O99.63 Diseases of the digestive system complicating the puerperium; K56.0 Paralytic ileus; G43.909 Migraine, unspecified, not intractable, without status migrainosus; O90.89 Other complications of the puerperium, not elsewhere classified; E86.0 Dehydration; E87.1 Hypo-osmolality and hyponatremia; E87.5 Hyperkalemia; E83.51 Hypocalcemia; Z3A.35 35 weeks gestation of pregnancy; Z37.0 Single live birth
CPT/HCPCS: 36415; 59025; 59050; 74018; 74177; 80048; 80053; 82533; 82565; 83930; 83935; 84300; 84443; 84450; 84460; 84550; 85025; 85027; 85384; 85610; 85730; 86850; 86900; 86920; 86922; 87081; 87653; 93005; 99218; J7030; J7040; J7120; P9016; Q9967; A4216; G0378; J0610; J0702; J2405

== ENCOUNTER 2018-11-01 14:46 | Inpatient (IN) | payer OTHER, MEDICAID, SELFPAY ==
[2018-10-21 06:27] VITALS: BMI 21.6
[2018-11-01 14:48] VITALS: BP 139/72; PULSE 123; RESP 16; TEMP 36.5; O2SAT 100; BMI 17.4
--- NOTE | 2018-11-01 14:52 | CT_ITS ---
STUDY: CT ABDOMEN AND PELVIS WITH CONTRAST REASON FOR EXAM: Female, 23 years old. 2 weeks ago continued pain. Shortness of breath. RADIATION DOSAGE (If Supplied By Facility): CTDIvol = ( 6.21 ) mGy, DLP = ( 582.64 ) mGycm TECHNIQUE: Transaxial images were obtained from the dome of the diaphragm to the symphysis pubis without oral contrast. Isovue 370 75ML IV was administered. Sagittal and coronal images were reconstructed. Individualized dose optimization techniques were used for this CT. COMPARISON: CTA of the chest, November 01, 2018. CT of the abdomen and pelvis, October 22, 2018. FINDINGS: The visualized lung bases are unremarkable. The visualized portions of the heart are within normal limits. Normal liver. Normal gallbladder and extrahepatic biliary system. Normal spleen. Normal pancreas. Normal bilateral adrenal glands. Normal right kidney. Normal left kidney. Normal visualized stomach. There are distended fluid-filled loops of small bowel throughout the abdomen. Normal colon. There is non-visualization of the appendix. Normal abdominal aorta. Normal inferior vena cava. Normal retroperitoneum. Normal urinary bladder. The uterus is retroverted. Fluid is seen within the endometrial canal. There is no adnexal mass. Anterior to the uterus there is a 14.02 x 9.8 x 16.5 cm fluid collection with increased central density consistent with hematoma. Superiorly this appears to connect with a fluid collection and in the right flank area measuring 13.4 x 6.4 x 10.8 cm. Again this appears to be fluid density with higher density dependent material consistent with hematoma. There is a locule extending up toward along the underside of the liver measuring 3.7 x 7.9 x 4 cm. In the posterior cul-de-sac there is a second fluid collection measuring 9.9 x 4.5 x 4.6 cm. This also contains slightly higher density centrally suggesting hematoma. Most of the fluid collections in the pelvis are now decreased in density consistent with resolving hematoma. The right flank collection has significantly increased in size. It become more defined. Normal abdominal wall. Normal osseous structures. CT/Abdomen/Pelvis W IV Cont ONLY IMPRESSION: 1. Fluid collections in the anterior pelvis and posterior cul-de-sac which have become more fluid density when compared to the previous studies suggesting evolving hematomas. 2. New right flank fluid collection which appears to communicate with the larger anterior pelvic collection which was not previously seen. This again has the appearance of a hematoma. 3. Resolution of the free fluid seen in the subphrenic spaces and abdomen on the previous examination. 4. Decrease in size of the uterus with more uniform density. There continues to be minimal fluid within the endometrial canal. Electronically Signed: Matt Ortiz DO at 16:33 EST Tel [phone], Service support ,
--- NOTE | 2018-11-01 14:53 | CT_ITS ---
STUDY: CTA CHEST REASON FOR EXAM: Female, 23 years old. Shortness of breath. 2 weeks ago. RADIATION DOSAGE (If Supplied By Facility): CTDIvol = ( ) mGy, DLP = ( ) mGycm TECHNIQUE: The examination was performed with the intravenous administration of Isovue 370 75ML IV. Post-processing of the angiographic images was performed, with multiplanar reformation and 3D reconstruction. Individualized dose optimization techniques were used for this CT. COMPARISON: None. FINDINGS: Normal enhancement of the main pulmonary artery and right and left pulmonary arteries. Normal enhancement of the bilateral peripheral pulmonary arteries. There is no demonstrated pulmonary embolism. Normal thoracic aorta and visualized great vessels. There is no demonstrated aortic dissection. Normal heart and pericardium. Normal mediastinum. Normal hilar regions. Normal visualized trachea and bronchi. The lungs are well expanded. Normal pulmonary parenchyma. Normal pleura. Normal chest wall structures. Normal osseous structures. Normal visualized upper abdomen. CT/CTA Chest W/WO Contrast IMPRESSION: Normal CTA chest examination, without a demonstrated pulmonary embolism or arterial dissection. Electronically Signed: Matt Ortiz DO at 16:26 EST Tel [phone], Service support ,
--- NOTE | 2018-11-01 15:17 | ED.VISSUMM ---
- ER Visit Summary Date of Service: 11/01/18 Chief Complaint: Abdominal pain History of Present Illness: The patient is a 23 F history of recent emergent at around 35 weeks due to preeclampsia. Patient was hospitalized to 6 through 10/24/2018. Currently the child is in the ICU at [facility]. Patient was seen by her FIRE BOAT ENGINEER today Dr. Lucy Valenzuela. She is complaining of a distended abdomen and abdominal pain. She also states she is having pleuritic chest pain with deep breathing. And feels mildly short of breath. She denies any hemoptysis. She denies any fever. She denies any dysuria. She was sent in by her FIRE BOAT ENGINEER to be possible pulmonary emboli and also a possible post abscess. Physical Examination: Young female. Blood pressure vital signs are stable. Her pulse ox is reportedly 100% on room air. She is tachycardic with a heart rate of 123. Afebrile. She does not look septic or toxic. H EENT exam unremarkable. Neck nontender no JVD. No lymphadenopathy. Lungs clear to auscultation bilaterally. Heart tachycardic rate about 120 no murmur. Abdomen distended. Mildly tender. No peritoneal signs. Very decreased bowel sounds. Well-healing horizontal incision in the lower abdomen. No redness, warmth or drainage. Incision is dry and clean. She is moving all 4 extremities. Neurovascular intact. Calves are nontender without edema. Back is nontender. No CVA tenderness. Neurologically she is awake and alert with no focal motor deficits. Test Results: 5.5. Hemoglobin 9.3. Platelets 619,000. So it chemistries potassium and 2.9. Anion gap 12. Normal creatinine. LFTs are unremarkable. PT INR and PTT are unremarkable. Lactate is 0.9. Chest was normal. No PE. Read by the radiologist and reviewed by me. CT abdomen and pelvis shows evolving abdominal and pelvic postsurgical hematomas. There is also distended fluid-filled loops of bowel consistent with an early ileus. Emergency Department Course and Treatment: Young female status post with both distended abdomen and pleuritic chest pain. Be evaluated for above a possible post abscess or hematoma or ileus and also the possibility of pulmonary emboli. Treatment Plan: Patient treated with IV morphine and Zofran for pain. A liter normal saline. On repeat exam at 1725 she is doing well. I already spoken to Dr. Kimberly Kitchen of FIRE BOAT ENGINEER. She will be in to evaluate and admit the patient. Disposition: Admission Impression: Acute abdominal pain status post recent secondary to intra-abdominal and pelvic hematomas Early ileus post op Chronic anemia Hypokalemia This note was generated with ev-social dictation software. It may contain incorrect words, spelling, and punctuation that were not noted in review of the chart prior to signing ED Disposition - Plan for ED Patient: Referrals: Sirena Blue MD [Primary Care Provider] -
[2018-11-01 15:18] VITALS: BP 141/92; PULSE 122; RESP 31; O2SAT 99
--- NOTE | 2018-11-01 15:20 | ED.DCSUM_ITS ---
- ER Visit Summary Date of Service: 11/01/18 Chief Complaint: Abdominal pain History of Present Illness: The patient is a 23 F history of recent emergent C- section at around 35 weeks due to preeclampsia. Patient was hospitalized to 6 through 10/24/2018. Currently the child is in the ICU at [facility]. Patient was seen by her RECREATION OFFICER today Dr. Lucy Valenzuela. She is complaining of a distended abdomen and abdominal pain. She also states she is having pleuritic chest pain with deep breathing. And feels mildly short of breath. She denies any hemoptysis. She denies any fever. She denies any dysuria. She was sent in by her RECREATION OFFICER to be possible pulmonary emboli and also a possible post abscess. Physical Examination: Young female. Blood pressure vital signs are stable. Her pulse ox is reportedly 100% on room air. She is tachycardic with a heart rate o f 123. Afebrile. She does not look septic or toxic. H EENT exam unremarkable. Neck nontender no JVD. No lymphadenopathy. Lungs clear to auscultation bilaterally. Heart tachycardic rate about 120 no murmur. Abdomen distended. Mildly tender. No peritoneal signs. Very decreased bowel sounds. Well-healing horizontal incision in the lower abdomen. No redness, warmth or drainage. Incision is dry and clean. She is moving all 4 extremities. Neurovascular intact. Calves are nontender without edema. Back is nontender. No CVA tenderness. Neurologically she is awake and alert with no focal motor deficits. Test Results: 5.5. Hemoglobin 9.3. Platelets 619,000. So it chemistries potassium and 2.9. Anion gap 12. Normal creatinine. LFTs are unremarkable. PT INR and PTT are unremarkable. Lactate is 0.9. Chest was normal. No PE. Read by the radiologist and reviewed by me. CT abdomen and pelvis shows evolving abdominal and pelvic postsurgical hematomas. There is also distended fluid-filled loops of bowel consistent with an early ileus. Emergency Department Course and Treatment: Young female status post with both distended abdomen and pleuritic chest pain. Be evaluated for above a possible post abscess or hematoma or ileus and also the possibility of pulmonary emboli. Treatment Plan: Patient treated with IV morphine and Zofran for pain. A liter normal saline. On repeat exam at 1725 she is doing well. I already spoken to Dr. Kimberly Kitchen of RECREATION OFFICER. She will be in to evaluate and admit the patient. Disposition: Admission Impression: Acute abdominal pain status post recent secondary to in tra-abdominal and pelvic hematomas Early ileus post op Chronic anemia Hypokalemia This note was generated with [employer] dictation software. It may contain incorrect words, spelling, and punctuation that were not noted in review of the chart prior to signing ED Disposition - Plan for ED Patient: Referrals: Sirena Blue MD [Primary Care Provider] -
[2018-11-01 15:44] LABS: International Normalized Ratio 1.3; Prothrombin Time (Protime)PT. 16.6 SECONDS (11.7-14.9)
[2018-11-01 15:45] LABS: Partial Thromboplast Time 45.8 Seconds (24.1-36.2)
[2018-11-01 15:48] LABS: ALB/GLOB Ratio 0.4 RATIO (0.9-2.4); AST(SGOT) 43 U/L (15-37); Alanine Aminotransfer ALT/SGPT 23 U/L (13-56); Albumin, Serum 1.9 g/dL (3.2-5.0); Alkaline Phosphatase 173 U/L (45-117); Anion Gap 12 (5-15); BUN 6 mg/dL (7-18); BUN/Creat Ratio 12.6 RATIO (10-20); Calcium,Total 8.2 mg/dL (8.5-10.1); Chloride 106 mmol/L (98-107); Creatinine, Serum 0.48 mg/dL (0.55-1.02); EST Glomerular Filtration Rate 174 mL/min (>60); Est Glom Filt Rate - Afr Amer 210 mL/min (>60); Estimated Creatinine Clearance 156.65 ml/min; Globulin 5.4 g/dL (2.2-4.2); Glucose 98 mg/dL (74-106); Potassium 2.9 mmol/L (3.5-5.1); Protein, Total 7.3 g/dL (6.4-8.2); Sodium Level 140 mmol/L (136-145); Uric Acid 3.1 mg/dL (2.6-6.0)
[2018-11-01 15:49] LABS: Absolute Lymphocyte Count 1.81 X10^3/ul (0.83-4.51); Absolute Neutrophil Count 21.5 X10^3/uL (2.0-7.7); Basophil# 0.05 X10^3/uL; Basophil% 0.2 % (0-1); Eosinophil# 0.09 X10^3/uL; Eosinophils% 0.4 % (0-5); Hematocrit 29.2 % (37-47); Hemoglobin 9.3 g/dl (12.0-15.0); Lymphocyte # 1.81 X10^3/ul (4.0); Lymphocyte % 7.1 % (19-41); Mean Corp Hgb Conc 31.8 g/gl (32-36); Mean Corpuscular Hgb 27.8 pg (27.0-32.0); Mean Corpuscular Volume 87.4 fL (81-99); Monocyte# 1.81 X10^3/uL; Monocyte% 7.1 % (0-10); Neutrophil # 21.45 X10^3/uL (2.7-7.7); Neutrophil % 84.2 % (47-70); Platelet Count 619 K/mm3 (150-450); RBC Distribution Width CV 15.7 % (11.6-14.6); RBC Distribution Width SD 50.7 fl (35.1-43.9); Red Blood Count 3.34 M/mm3 (4.2-5.4); White Blood Count 25.5 K/mm3 (4.4-11.0)
[2018-11-01 15:51] LABS: POSITIVE COUNT NO; POSITIVE DIFFERENTIAL YES; POSITIVE MORPHOLOGY NO
[2018-11-01 15:52] LABS: Differential Indicated SCAN CRITERIA MET; Lactic Acid 0.9 mmol/L (0.4-2.0)
[2018-11-01] MEDS: Ondansetron 4 MG/2 ML Vial IV (15:53)
[2018-11-01] MEDS: Morphine 4 MG/ML Syringe IV (15:53)
[2018-11-01 16:16] VITALS: BP 136/89; PULSE 118; RESP 14; O2SAT 99
[2018-11-01 16:34] LABS: Hypochromasia RARE
[2018-11-01 17:06] VITALS: BP 139/92; PULSE 118; RESP 16; O2SAT 99
--- NOTE | 2018-11-01 18:15 | HP.PCM_ITS ---
History of Present Illness Date of Admission: 11/01/18 Chief Complaint: Abdominal pain & SOB Patient presented to office today complaining of SOB & abdominal pain. She reports it is painful to take a deep breath but denies CP. In the ED she thinks the SOB is maybe a little better. Also she reports that today her abdomen became more distended. Past Medical History Medical History: Medical History (Last Updated 11/01/18 @ 18:14 by Zaheer Kitchen) delivery delivered O82 Allergies No Known Allergies Allergy (Verified 11/01/18 14:48) Home Medications: Ambulatory Orders Medication Instructions Recorded Acetaminophen [Tylenol] 1,000 mg PO Q8H PRN PRN #60 tablet 10/24/18 Docusate Sodium [Colace] 100 mg PO BID #30 capsule 10/24/18 Melatonin 3 mg PO QHS tablet 10/24/18 SimETHICONE [Mylicon] 80 mg PO PCHS PRN #30 tablet 10/24/18 NIFEdipine [Procardia XL] 30 mg PO DAILY 11/01/18 Oxycodone [Oxyir] 5 mg PO Q4H PRN PRN 11/01/18 Vit/Iron Fum/Folic AC 1 each PO DAILY 11/01/18 [ Tablet] Surgical History: tonsillectomy Smoking Status: Never smoker Review of Systems Constitutional: Reports: - - decreased appetite & some nausea - patient attributes to oxycodone so stopped taking it HEENT: Denies: Head Aches, Sinus Congestion, Sinus Drainage Genitourinary: Denies: Dysuria Neurological: Denies: Numbness, Tingling, Focal weakness VTE Information - Inpt Only VTE Present on Admission: No VTE Mechan Device Prophylaxis: SCD's VTE Pharm Prophylaxis ordered?: No - Physical Exam General: Alert, Oriented x3 Abdomen: Soft - mild but soft distension, uterus palpable & fundus firm & displaced to right of umbilicus, Passing Flatus - patient reports BM earlier today Extremities: No edema, No Calf Tenderness Skin: No rashes Neurological: Cranial nerves II-XII grossly intact Psych/Mental Status: Normal Affect Vital Signs Temp Pulse Resp BP Pulse Ox 97.7 F L 118 H 16 139/92 H 99 11/01/18 14:48 11/01/18 17:06 11/01/18 17:06 11/01/18 17:06 11/01/18 17:06 Oxygen Delivery Method Room Air Weight: 118 lb Body Mass Index (BMI) 17.4 Laboratory Tests Past 24 Hrs 11/01/18 11/01/18 11/01/18 15:14 15:14 15:14 WBC 25.5 H RBC 3.34 L Hgb 9.3 L Hct 29.2 L MCV 87.4 MCH 27.8 MCHC 31.8 L RDW 15.7 H RDW Differential 50.7 H Plt Count 619 H MPV 10.0 Immature Gran % (Auto) 1.000 H Neut % (Auto) 84.2 H Lymph % (Auto) 7.1 L [place] % (Auto) 7.1 Eos % (Auto) 0.4 Baso % (Auto) 0.2 Absolute Neuts (auto) 21.5 H Absolute Lymphs (auto) 1.81 Total Counted Not Reportable Differential Comment Diff Path Review May foll Hypochromasia RARE PT 16.6 H INR 1.3 APTT 45.8 H Sodium 140 Potassium 2.9 L Chloride 106 Carbon Dioxide 22.0 Anion Gap 12 BUN 6 L Creatinine 0.48 L Estim Creat Clear Calc 156.65 Est GFR (MDRD) Af Amer 210 Est GFR (MDRD) Non-Af 174 BUN/Creatinine Ratio 12.6 Glucose 98 Lactic Acid Uric Acid 3.1 Calcium 8.2 L Total Bilirubin 0.90 AST 43 H ALT 23 Alkaline Phosphatase 173 H Total Protein 7.3 Albumin 1.9 L Globulin 5.4 H Albumin/Globulin Ratio 0.4 L 11/01/18 15:14 WBC RBC Hgb Hct MCV MCH MCHC RDW RDW Differential Plt Count MPV Immature Gran % (Auto) Neut % (Auto) Lymph % (Auto) [place] % (Auto) Eos % (Auto) Baso % (Auto) Absolute Neuts (auto) Absolute Lymphs (auto) Total Counted Differential Comment Diff Path Review Hypochromasia PT INR APTT Sodium Potassium Chloride Carbon Dioxide Anion Gap BUN Creatinine Estim Creat Clear Calc Est GFR (MDRD) Af Amer Est GFR (MDRD) Non-Af BUN/Creatinine Ratio Glucose Lactic Acid 0.9 Uric Acid Calcium Total Bilirubin AST ALT Alkaline Phosphatase Total Protein Albumin Globulin Albumin/Globulin Ratio Assessment/Plan All Active Problems (Last Updated 11/01/18 @ 18:14 by Zaheer Kitchen) Hypocalcemia (Acute) Hyperkalemia (Acute) Hyponatremia (Acute) Ileus (Acute) Acute blood loss anemia (Acute) 23yo female s/p on 10/19/18 with abdominal pain & SOB SOB - CT negative for PE. Suspect SOB is from abdominal distension. Abdominal distension - CT shows multiple hematomas that are evolving. Plan to consult radiology tomorrow for possible IR drainage. Heme - hb improved (to 9.3) from last check & patient HDS. Electrolytes - show hypokalemia. Will given NS with 20mEq potassium and repeat labs in am. GI - regular diet & clear liquids at midnight. H/o severe preE - patient s/p magnesium PP. BP's normal to minimally elevated in the ED. Labs normal other than mild elevation in AST at 43. Continue procardia. Plan of care reviewed with patient & her family. All questions answered.
[2018-11-01 18:22] VITALS: BMI 17.6
[2018-11-01 18:29] VITALS: BP 137/92; PULSE 116; RESP 20; TEMP 38.3; O2SAT 100
[2018-11-01 18:33] VITALS: BMI 17.7
[2018-11-01] MEDS: Acetaminophen 500 MG Tablet 1000 MG PO (18:56)
[2018-11-01] MEDS: Ibuprofen 600 MG Tablet PO (21:12)
[2018-11-01 21:18] VITALS: BP 135/72; PULSE 110; RESP 18; TEMP 37.1; O2SAT 100
[2018-11-01] MEDS: Docusate Sodium 100 MG Capsule PO (21:23)
[2018-11-01] MEDS: MELATONIN 3 MG TABLET PO (21:24)
[2018-11-02] VITALS (11 sets, daily range): BP systolic 113–149; BP diastolic 70–114; PULSE 89–123; RESP 16–26; TEMP 36.7–37.2; O2SAT 99–123
--- NOTE | 2018-11-02 | FLU_PTH ---
PATIENT: SANIYA STUART LOC: [facility] U#:[id number] AGE/SX: ROOM: [facility]305 RE11/01/[address]: Dr. Zaheer Kitchen MD : 1995 BED: 1 DIS: 11/03/2018 SPEC #: [id number] RECD: 11/03/18 08:10 STATUS: ANGELI REQ #: [id number] RAJENDRA: 11/02/18 00:[address]: Lucy Valenzuela DEPT: CYTOLOGY RECD BY: Tree Arevalo ENTERED: 11/03/18 08:11 SP TYPE: Fluid OTHR DR: MD Dr. Zaheer Holly MD Tissues: Pelvis, NOS Procedures: Special Stain Group II Surgery Specimen Level IV Cytospin Fluid Comments: @ Ordering doctor for SSII edited from to @ by MARISELA at 11/03/18 1355 @ Ordering doctor for SUIV edited from to DR.RRUSSE Calles by RGOALLISON at 11/03/18 1355 @ Ordering doctor for CYSPIN edited from to @ by RGOALLISON at 11/03/18 1355 @ Submitting doctor edited from to @ by RGOOD at 11/03/18 1355 HEADER OPERATION: CT-guided abscess drainage PRE-OP DIAGNOSIS: Abdominal and pelvic hematoma TISSUE SUBMITTED: Abdominal and pelvic hematoma DIAGNOSIS CYTOLOGY Abdominal and pelvic hematoma, CT-guided abscess drainage: Bloody specimen, consistent with hematoma. Acute inflammation. SJ:eliane 11/04/18 COMMENT Correlation with clinical findings and appropriate follow up are necessary. CYTOLOGY STUDY Slides are reviewed. CYTOLOGY GROSS Received is 60 ml of dark red cloudy fluid labeled with the patient's name and and designated per the requisition as abdominal and pelvic hematoma. Submitted for cytology preparation including cell block. / 11/03/18 TC:2 CPT: 25941, 72747
[2018-11-02] MEDS: Acetaminophen 500 MG Tablet 1000 MG PO ×3 (03:04→23:06)
[2018-11-02] MEDS: Ibuprofen 600 MG Tablet PO ×2 (05:03→17:50)
[2018-11-02 05:20] LABS: Albumin, Serum 1.5 g/dL (3.2-5.0); BUN 5 mg/dL (7-18); BUN/Creat Ratio 11.9 RATIO (10-20); Creatinine, Serum 0.42 mg/dL (0.55-1.02); EST Glomerular Filtration Rate 201 mL/min (>60); Est Glom Filt Rate - Afr Amer 243 mL/min (>60); Estimated Creatinine Clearance 181.61 ml/min; Glucose 93 mg/dL (74-106)
[2018-11-02 05:21] LABS: ALB/GLOB Ratio 0.3 RATIO (0.9-2.4); AST(SGOT) 31 U/L (15-37); Alanine Aminotransfer ALT/SGPT 20 U/L (13-56); Alkaline Phosphatase 141 U/L (45-117); Anion Gap 9 (5-15); Calcium,Total 7.6 mg/dL (8.5-10.1); Chloride 112 mmol/L (98-107); Globulin 4.5 g/dL (2.2-4.2); Potassium 3.1 mmol/L (3.5-5.1); Sodium Level 144 mmol/L (136-145)
[2018-11-02 05:36] LABS: International Normalized Ratio 1.4
[2018-11-02 05:58] LABS: Absolute Lymphocyte Count 1.25 X10^3/ul (0.83-4.51); Absolute Neutrophil Count 16.4 X10^3/uL (2.0-7.7); Basophil# 0.06 X10^3/uL; Basophil% 0.3 % (0-1); Eosinophil# 0.26 X10^3/uL; Eosinophils% 1.3 % (0-5); Hematocrit 26.2 % (37-47); Hemoglobin 8.4 g/dl (12.0-15.0); Lymphocyte # 1.25 X10^3/ul (4.0); Lymphocyte % 6.3 % (19-41); Mean Corp Hgb Conc 32.1 g/gl (32-36); Mean Corpuscular Hgb 27.7 pg (27.0-32.0); Mean Corpuscular Volume 86.5 fL (81-99); Mean Platelet Vol. 9.9 fl (6.2-12.0); Monocyte# 1.84 X10^3/uL; Monocyte% 9.2 % (0-10); Neutrophil # 16.35 X10^3/uL (2.7-7.7); Platelet Count 579 K/mm3 (150-450); RBC Distribution Width CV 15.7 % (11.6-14.6); RBC Distribution Width SD 49.6 fl (35.1-43.9); Red Blood Count 3.03 M/mm3 (4.2-5.4); White Blood Count 19.9 K/mm3 (4.4-11.0)
[2018-11-02 06:01] LABS: Differential Indicated SCAN CRITERIA MET; POSITIVE COUNT NO; POSITIVE DIFFERENTIAL YES; POSITIVE MORPHOLOGY NO
[2018-11-02] MEDS: Docusate Sodium 100 MG Capsule PO ×2 (10:11→23:06)
[2018-11-02] MEDS: NIFEdipine 30 MG Tablet PO (10:12)
--- NOTE | 2018-11-02 10:17 | CT_ITS ---
PROCEDURE: CT DIRECTED ABSCESS DRAINAGE, PERITONEAL DATE OF EXAMINATION: November 02, 2018. INDICATION: Female, 23 years old. Intra-abdominal hematoma following recent section. PHYSICIAN: Fawad Lopez M.D. CONSENT: Written informed consent was obtained having explained the risks, benefits and alternatives in detail with the patient who accepted the risks and agreed to proceed. Laboratory review and clinical assessment was performed. CONSCIOUS SEDATION PROTOCOL: The Drugs used were: 2 mg Versed, IV., and 50 mcg Fentanyl, IV. The sedation time was: 31 minutes. Conscious sedation was started at 12:59 PM and terminated at 1:30 PM. The conscious sedation protocol was independently monitored. RADIATION DOSAGE (If Supplied By Facility): CTDIvol = ( 20 ) mGy, DLP = ( 474.3 ) mGycm TECHNIQUE: CT sections were made through the abdomen and pelvis revealing fluid collections suggestive of hematoma in the lower abdomen and pelvis.. A 10 Swedish Drainage catheter was then inserted into the collection and formed into position. Additional fluid was aspirated for a total of approximately 460 cc of red fluid. The catheter was sutured into position to allow for continued drainage. Followup CT sections reveals good position of the catheter. CT/CT Guidance Abscess Drg w/Cath IMPRESSION: 1. CT directed drainage of a fluid collection using CT image guidance and image documentation as described. 2. Conscious Sedation protocol utilized with independent monitoring Electronically Signed: Fawad Lopez MD at 14:52 EST , Service support ,
[2018-11-02] MEDS: oxyCODONE 5 MG Tablet PO (10:37)
--- NOTE | 2018-11-02 10:39 | PN.OBGYN_ITS ---
Subjective: Still complaining of pain, but trying to avoid narcotics. Still somewhat feeling short of breath because it is painful to take a deep breath. She had a moderate-sized bowel movement this morning. She denies any fevers or chills. She denies any headache or visual changes. She is having minimal vaginal bleeding - Physical Exam General: Alert, Cooperative Cardiovascular: Regular rate Abdomen: Soft, Distended - Mildly, Tender - Severe tenderness right upper quadrant with some firmness in that area, some firmness in the lower abdomen to approximately 4 cm above her incision. There is no erythema or calor. The incision itself is intact without drainage and is healing well. Extremities: No edema Vital Signs Temp Pulse Resp BP Pulse Ox 98.1 F 95 18 125/81 H 100 11/02/18 08:32 11/02/18 08:32 11/02/18 08:32 11/02/18 08:32 11/02/18 08:32 Oxygen Delivery Method Room Air Weight: 54.295 kg Body Mass Index (BMI) 17.6 Intake and Output for Last 24 Hours 10/31/18 11/01/18 11/02/18 23:59 23:59 23:59 Intake Total 6 / 2046 Output Total 200 / 200 Balance 1846 / 1846 Laboratory Tests Past 24 Hrs 11/01/18 11/01/18 11/01/18 15:14 15:14 15:14 WBC 25.5 H RBC 3.34 L Hgb 9.3 L Hct 29.2 L MCV 87.4 MCH 27.8 MCHC 31.8 L RDW 15.7 H RDW Differential 50.7 H Plt Count 619 H MPV 10.0 Immature Gran % (Auto) 1.000 H Neut % (Auto) 84.2 H Lymph % (Auto) 7.1 L [place] % (Auto) 7.1 Eos % (Auto) 0.4 Baso % (Auto) 0.2 Absolute Neuts (auto) 21.5 H Absolute Lymphs (auto) 1.81 Total Counted Not Reportable Differential Comment Diff Path Review May foll Hypochromasia RARE PT 16.6 H INR 1.3 APTT 45.8 H Sodium 140 Potassium 2.9 L Chloride 106 Carbon Dioxide 22.0 Anion Gap 12 BUN 6 L Creatinine 0.48 L Estim Creat Clear Calc 156.65 Est GFR (MDRD) Af Amer 210 Est GFR (MDRD) Non-Af 174 BUN/Creatinine Ratio 12.6 Glucose 98 Lactic Acid Uric Acid 3.1 Calcium 8.2 L Total Bilirubin 0.90 AST 43 H ALT 23 Alkaline Phosphatase 173 H Total Protein 7.3 Albumin 1.9 L Globulin 5.4 H Albumin/Globulin Ratio 0.4 L 11/01/18 11/02/18 11/02/18 15:14 04:50 04:50 WBC 19.9 H RBC 3.03 L Hgb 8.4 L Hct 26.2 L MCV 86.5 MCH 27.7 MCHC 32.1 RDW 15.7 H RDW Differential 49.6 H Plt Count 579 H MPV 9.9 Immature Gran % (Auto) 0.900 Neut % (Auto) 82.0 H Lymph % (Auto) 6.3 L [place] % (Auto) 9.2 Eos % (Auto) 1.3 Baso % (Auto) 0.3 Absolute Neuts (auto) 16.4 H Absolute Lymphs (auto) 1.25 Total Counted Not Reportable Differential Comment Diff Path Review May foll Hypochromasia PT 17.0 H INR 1.4 APTT Sodium Potassium Chloride Carbon Dioxide Anion Gap BUN Creatinine Estim Creat Clear Calc Est GFR (MDRD) Af Amer Est GFR (MDRD) Non-Af BUN/Creatinine Ratio Glucose Lactic Acid 0.9 Uric Acid Calcium Total Bilirubin AST ALT Alkaline Phosphatase Total Protein Albumin Globulin Albumin/Globulin Ratio 11/02/18 04:50 WBC RBC Hgb Hct MCV MCH MCHC RDW RDW Differential Plt Count MPV Immature Gran % (Auto) Neut % (Auto) Lymph % (Auto) [place] % (Auto) Eos % (Auto) Baso % (Auto) Absolute Neuts (auto) Absolute Lymphs (auto) Total Counted Differential Comment Diff Path Review Hypochromasia PT INR APTT Sodium 144 Potassium 3.1 L Chloride 112 H Carbon Dioxide 23.0 Anion Gap 9 BUN 5 L Creatinine 0.42 L Estim Creat Clear Calc 181.61 Est GFR (MDRD) Af Amer 243 Est GFR (MDRD) Non-Af 201 BUN/Creatinine Ratio 11.9 Glucose 93 Lactic Acid Uric Acid Calcium 7.6 L Total Bilirubin 0.60 AST 31 ALT 20 Alkaline Phosphatase 141 H Total Protein 6.0 L Albumin 1.5 L Globulin 4.5 H Albumin/Globulin Ratio 0.3 L Medical Necessity - Tobacco Use Smoking Status: Never smoker Assessment/Plan All Active Problems (Last Updated 11/01/18 @ 18:14 by Zaheer Kitchen) Hypocalcemia (Acute) Hyperkalemia (Acute) Hyponatremia (Acute) Ileus (Acute) Acute blood loss anemia (Acute) Hospital day #2, postoperative day #14 status post primary with postoperative hemorrhage and 5 units blood transfusion. Now with evolving hematomas, but pain significant enough that is limiting her activities. Labs are stable, her blood count is anemic but stable. Slightly hypokalemic, will replace this. Concerned about partial ileus or resolving ileus, patient ate Pam[employer] last night. She still complains of decreased appetite but is having bowel movements. Will keep her n.p.o. until the interventional radiology drainage, then advance her to a transitional diet for now. She did have one temperature of 100.9 last night, if she spikes a fever again, will initiate antibiotics. We will ask interventional radiology to send cultures of the fluid that they drained. discussed with the patient and her mother the reasoning behind interventional radiology procedure. Their questions were answered and they desire to proceed. Encourage ambulation [id number] reported yesterday that she was getting minimal breast milk with pumping, has not pump since she has been here. Nursing will address this with her after the procedure today and assist her with this if needed.
--- NOTE | 2018-11-02 11:20 | CASEMGMT ---
RN KAYLEIGH Face to Face with patient for initial transition planning/care coordination assessment. RN CM introduced self and role at [facility]. Patient lying in bed, alert and oriented, sister at bedside. Patient willing to participate in assessment and is able to answer all questions appropriately. Care providers, pharmacy, and demographics verified. Patient wishes to discharge home, denies needs at this time. Patient states she has no further needs or concerns at this time. CM to follow for discharge planning needs that may arise. PCP: Mirza Specialists: None Preferred Pharmacy: [facility] Insurance: [employer] Prescription Benefit: Yes Living Will/HPOA: None LNOK: mother, sister, Living Arrangements: Patient lives with mother and family in a house, patient is independent and able to navigate stairs Transportation: self/family DME/HHC: Patient states she has a breast pump at home. Denied further needs. Disposition Plan: Patient to discharge home with family support and follow-up plans in place. Ashia STACY, RN, CM
[2018-11-02 12:33] LABS: Pathologist Review Reviewed
[2018-11-02 12:36] LABS: Pathologist Review Reviewed
--- NOTE | 2018-11-02 12:45 | NURSING ---
report given to margarito farmer w/ radiology and pt taken down for procedure margarito farmer will call Rx and find out about dumping breast milk post meds (versed and fentanyl)
[2018-11-02] MEDS: Midazolam 2 MG/2 ML Syringe IV ×2 (12:59→13:22)
[2018-11-02] MEDS: fentaNYL 100 MCG/2 ML Ampul IV ×2 (13:00→13:22)
--- NOTE | 2018-11-02 17:48 | PN.OBGYN_ITS ---
Subjective: Patient is doing well post-procedure. States she is having some discomfort from the procedure, and the RN is getting her pain medication. Tolerating food without N/V. She denies CP, SOB, abdominal pain, leg pain, lightheadedness, fevers. - Physical Exam General: Alert, No apparent distress Lungs: - - No increased resp effort Abdomen: Soft, - - Distended, non-tender, no rebounding, no gaurding, no rigidity Extremities: No edema Skin: No rashes Neurological: Neuro grossly intact Psych/Mental Status: Normal Affect, Appropriate Vital Signs Temp Pulse Resp BP Pulse Ox 98.5 F 122 H 22 H 139/89 H 99 11/02/18 14:55 11/02/18 14:11 11/02/18 14:11 11/02/18 14:11 11/02/18 15:21 Oxygen Flow Rate (L/min) [7] 2 Oxygen Flow Rate (L/min) [6] 2 Oxygen Flow Rate (L/min) [5] 2 Oxygen Flow Rate (L/min) [3] 2 Oxygen Flow Rate (L/min) [2] 2 Oxygen Delivery Method [7] Nasal Cannula Oxygen Delivery Method [6] Nasal Cannula Oxygen Delivery Method [5] Nasal Cannula Oxygen Delivery Method [4] Nasal Cannula Oxygen Delivery Method [3] Nasal Cannula Oxygen Delivery Method [2] Nasal Cannula Oxygen Delivery Method [1 ( Room Air Initial Baseline)] Oxygen Delivery Method Room Air Weight: 119 lb 11.2 oz Body Mass Index (BMI) 17.6 Intake and Output for Last 24 Hours 10/31/18 11/01/18 11/02/18 23:59 23:59 23:59 Intake Total 3202 / 3202 Output Total 700 / 700 Balance 2502 / 2502 Microbiology Past 72 Hours 11/02/18 14:25 Gram Stain - Final Abs - Abdominal Laboratory Tests Past 24 Hrs 11/01/18 11/02/18 11/02/18 15:14 04:50 04:50 WBC 19.9 H RBC 3.03 L Hgb 8.4 L Hct 26.2 L MCV 86.5 MCH 27.7 MCHC 32.1 RDW 15.7 H RDW Differential 49.6 H Plt Count 579 H MPV 9.9 Immature Gran % (Auto) 0.900 Neut % (Auto) 82.0 H Lymph % (Auto) 6.3 L [place] % (Auto) 9.2 Eos % (Auto) 1.3 Baso % (Auto) 0.3 Absolute Neuts (auto) 16.4 H Absolute Lymphs (auto) 1.25 Total Counted Not Reportable Diff Path Review Reviewed Reviewed PT 17.0 H INR 1.4 Sodium Potassium Chloride Carbon Dioxide Anion Gap BUN Creatinine Estim Creat Clear Calc Est GFR (MDRD) Af Amer Est GFR (MDRD) Non-Af BUN/Creatinine Ratio Glucose Calcium Total Bilirubin AST ALT Alkaline Phosphatase Total Protein Albumin Globulin Albumin/Globulin Ratio 11/02/18 04:50 WBC RBC Hgb Hct MCV MCH MCHC RDW RDW Differential Plt Count MPV Immature Gran % (Auto) Neut % (Auto) Lymph % (Auto) [place] % (Auto) Eos % (Auto) Baso % (Auto) Absolute Neuts (auto) Absolute Lymphs (auto) Total Counted Diff Path Review PT INR Sodium 144 Potassium 3.1 L Chloride 112 H Carbon Dioxide 23.0 Anion Gap 9 BUN 5 L Creatinine 0.42 L Estim Creat Clear Calc 181.61 Est GFR (MDRD) Af Amer 243 Est GFR (MDRD) Non-Af 201 BUN/Creatinine Ratio 11.9 Glucose 93 Calcium 7.6 L Total Bilirubin 0.60 AST 31 ALT 20 Alkaline Phosphatase 141 H Total Protein 6.0 L Albumin 1.5 L Globulin 4.5 H Albumin/Globulin Ratio 0.3 L Medical Necessity - Tobacco Use Smoking Status: Never smoker Assessment/Plan All Active Problems (Last Updated 11/01/18 @ 18:14 by Zaheer Kitchen) Hypocalcemia (Acute) Hyperkalemia (Acute) Hyponatremia (Acute) Ileus (Acute) Acute blood loss anemia (Acute) - Pt doing well post procedure - Has been afebrile and drain with dark red blood present - Continue current management - If pt has a fever, will likely start antibiotics - Await culture
[2018-11-02] MEDS: MELATONIN 3 MG TABLET PO (23:06)
[2018-11-03] MEDS: Ibuprofen 600 MG Tablet PO ×2 (01:27→12:39)
[2018-11-03 02:07] VITALS: BP 130/64; PULSE 71; RESP 18; TEMP 37.1; O2SAT 99
[2018-11-03 06:06] LABS: ALB/GLOB Ratio 0.3 RATIO (0.9-2.4); AST(SGOT) 22 U/L (15-37); Alanine Aminotransfer ALT/SGPT 15 U/L (13-56); Albumin, Serum 1.4 g/dL (3.2-5.0); Alkaline Phosphatase 132 U/L (45-117); Anion Gap 8 (5-15); BUN 5 mg/dL (7-18); BUN/Creat Ratio 11.6 RATIO (10-20); Calcium,Total 7.5 mg/dL (8.5-10.1); Chloride 115 mmol/L (98-107); Creatinine, Serum 0.43 mg/dL (0.55-1.02); EST Glomerular Filtration Rate 195 mL/min (>60); Est Glom Filt Rate - Afr Amer 235 mL/min (>60); Estimated Creatinine Clearance 177.39 ml/min; Globulin 4.2 g/dL (2.2-4.2); Glucose 89 mg/dL (74-106); Potassium 3.4 mmol/L (3.5-5.1); Protein, Total 5.6 g/dL (6.4-8.2); Sodium Level 145 mmol/L (136-145)
[2018-11-03 06:11] LABS: Absolute Lymphocyte Count 1.85 X10^3/ul (0.83-4.51); Absolute Neutrophil Count 11.9 X10^3/uL (2.0-7.7); Basophil# 0.06 X10^3/uL; Basophil% 0.4 % (0-1); Eosinophil# 0.28 X10^3/uL; Eosinophils% 1.8 % (0-5); Hematocrit 26.6 % (37-47); Hemoglobin 8.5 g/dl (12.0-15.0); Lymphocyte # 1.85 X10^3/ul (4.0); Lymphocyte % 11.8 % (19-41); Mean Corpuscular Hgb 28.1 pg (27.0-32.0); Mean Corpuscular Volume 87.8 fL (81-99); Mean Platelet Vol. 9.5 fl (6.2-12.0); Monocyte# 1.39 X10^3/uL; Monocyte% 8.9 % (0-10); Neutrophil # 11.85 X10^3/uL (2.7-7.7); Neutrophil % 75.6 % (47-70); Platelet Count 680 K/mm3 (150-450); RBC Distribution Width CV 15.9 % (11.6-14.6); RBC Distribution Width SD 51.3 fl (35.1-43.9); Red Blood Count 3.03 M/mm3 (4.2-5.4); White Blood Count 15.7 K/mm3 (4.4-11.0)
[2018-11-03 06:19] LABS: POSITIVE COUNT NO; POSITIVE DIFFERENTIAL NO; POSITIVE MORPHOLOGY NO
[2018-11-03 07:30] VITALS: O2SAT 94
[2018-11-03] MEDS: Acetaminophen 500 MG Tablet 1000 MG PO (08:14)
[2018-11-03 08:19] VITALS: BP 136/98; PULSE 99; RESP 16; TEMP 36.9; O2SAT 99
[2018-11-03] MEDS: NIFEdipine 30 MG Tablet PO (09:00)
[2018-11-03] MEDS: Docusate Sodium 100 MG Capsule PO (09:00)
[2018-11-03 11:16] VITALS: BP 141/92; PULSE 89; RESP 16; TEMP 36.8; O2SAT 100
--- NOTE | 2018-11-03 12:27 | PN.OBGYN_ITS ---
Subjective: pain much better after drain placed, no sharp pain w/ inspiration now. Average lochia. No N/V. + BM today, tolerating regular diet w/o N/v. No CP/sob/NÚÑEZ - Physical Exam General: Alert, Cooperative, No apparent distress Abdomen: Non-Distended, Tender - moderately, reduced from previous, no reboound Skin: Incision - clean, dry and intact. Abd- firm around incision still, no calor or erythgema Vital Signs Temp Pulse Resp BP Pulse Ox 98.2 F 89 16 141/92 H 100 11/03/18 11:16 11/03/18 11:16 11/03/18 11:16 11/03/18 11:16 11/03/18 11:16 Oxygen Flow Rate (L/min) [7] 2 Oxygen Flow Rate (L/min) [6] 2 Oxygen Flow Rate (L/min) [5] 2 Oxygen Flow Rate (L/min) [3] 2 Oxygen Flow Rate (L/min) [2] 2 Oxygen Delivery Method [7] Nasal Cannula Oxygen Delivery Method [6] Nasal Cannula Oxygen Delivery Method [5] Nasal Cannula Oxygen Delivery Method [4] Nasal Cannula Oxygen Delivery Method [3] Nasal Cannula Oxygen Delivery Method [2] Nasal Cannula Oxygen Delivery Method [1 ( Room Air Initial Baseline)] Oxygen Delivery Method Room Air Weight: 54.295 kg Body Mass Index (BMI) 17.6 Intake and Output for Last 24 Hours 11/01/18 11/02/18 11/03/18 23:59 23:59 23:59 Intake Total 4812 / 4812 887 / 887 Output Total 920 / 920 150 / 150 Balance 3892 / 3892 737 / 737 Microbiology Past 72 Hours 11/02/18 14:25 Gram Stain - Final Abs - Abdominal Wound Culture - Preliminary No growth-Final to follow Laboratory Tests Past 24 Hrs 11/01/18 11/02/18 11/03/18 15:14 04:50 05:16 WBC 15.7 H RBC 3.03 L Hgb 8.5 L Hct 26.6 L MCV 87.8 MCH 28.1 MCHC 32.0 RDW 15.9 H RDW Differential 51.3 H Plt Count 680 H MPV 9.5 Immature Gran % (Auto) 1.500 H Neut % (Auto) 75.6 H Lymph % (Auto) 11.8 L [place] % (Auto) 8.9 Eos % (Auto) 1.8 Baso % (Auto) 0.4 Absolute Neuts (auto) 11.9 H Absolute Lymphs (auto) 1.85 Total Counted Not Reportable Diff Path Review Reviewed Reviewed Sodium Potassium Chloride Carbon Dioxide Anion Gap BUN Creatinine Estim Creat Clear Calc Est GFR (MDRD) Af Amer Est GFR (MDRD) Non-Af BUN/Creatinine Ratio Glucose Calcium Total Bilirubin AST ALT Alkaline Phosphatase Total Protein Albumin Globulin Albumin/Globulin Ratio 11/03/18 05:16 WBC RBC Hgb Hct MCV MCH MCHC RDW RDW Differential Plt Count MPV Immature Gran % (Auto) Neut % (Auto) Lymph % (Auto) [place] % (Auto) Eos % (Auto) Baso % (Auto) Absolute Neuts (auto) Absolute Lymphs (auto) Total Counted Diff Path Review Sodium 145 Potassium 3.4 L Chloride 115 H Carbon Dioxide 22.0 Anion Gap 8 BUN 5 L Creatinine 0.43 L Estim Creat Clear Calc 177.39 Est GFR (MDRD) Af Amer 235 Est GFR (MDRD) Non-Af 195 BUN/Creatinine Ratio 11.6 Glucose 89 Calcium 7.5 L Total Bilirubin 0.40 AST 22 ALT 15 Alkaline Phosphatase 132 H Total Protein 5.6 L Albumin 1.4 L Globulin 4.2 Albumin/Globulin Ratio 0.3 L Medical Necessity - Tobacco Use Smoking Status: Never smoker Assessment/Plan All Active Problems (Last Updated 11/01/18 @ 18:14 by Zaheer Kitchen) Hypocalcemia (Acute) Hyperkalemia (Acute) Hyponatremia (Acute) Ileus (Acute) Acute blood loss anemia (Acute) HD#3 s/p ct guided drainage of perintoneal hematoma, pain reduced. Afebrile d/c home w/ drain care instructions. F/u in my office in 4-5 fdays or prn monitor bp, cont. procardia call if change in symptoms, worse pain, fever, or symptoms of [id number] patient agrees w/ plan
--- NOTE | 2018-11-03 12:28 | DCINST_ITS ---
Discharge Diet: No Restrictions Discharge Activity: Return to Normal Activity, May Not Drive - for 2 weeks, May not drive while taking narcotic pain medications., May Shower, May Take a Tub Bath - in 7 days. May resume sexual activity in: 4-6 weeks Lifting Restrictions: 20 pounds Additional Activity Instructions:: Nothing in the vagina for 4-6 weeks. You may return to work/school in 6 weeks. Call your doctor if your incision/area has: Continuous Slow Oozing, Sudden Increased Bleeding, Increased Pain/ Swelling, Increased Redness, Foul Smelling Discharge Call your doctor if you observe: Fever of 101 or Higher, Using more than one pad per hour - for 2 hours Suture Line Care: Avoid Pulling/Pushing, Avoid Pinching/Bending Cleanse incision/area with: Keep Dressing Clean & Dry Additional Instructions: If you experience any of the following, contact your healthcare provider. * Bleeding that soaks a pad every hour for 2 hours * Fever 100.4 or higher * Unrelieved incision or abdominal pain * Swelling, redness, discharge or bleeding from your incision or episiotomy site * Your incision begins to separate * Problems urinating (including inability to urinate or burning while urinating). * Visual changes * Severe headache * Flu-like symptoms * Pain or redness in one of both of your breasts * Pain, warmth, tenderness or swelling in your legs, especially the calf area * Frequent nausea and vomiting * Symptoms of depression or anxiety If you experience any of the following, call 911 or go to the nearest Emergency Room. * Chest pain * Problems breathing * Seizure activity * Partial or complete paralysis of a body part, slurred speech, weakness or drooping of the face, or a sudden inability to walk or hold your balance Allergies/Adverse Reactions: Allergies No Known Allergies Allergy (Verified 11/01/18 14:48) Medications to take at Discharge Acetaminophen [Tylenol] 1,000 mg PO Q8H PRN PRN #60 tablet 10/24/18 Melatonin 3 mg PO QHS tablet 10/24/18 SimETHICONE [Mylicon] 80 mg PO PCHS PRN #30 tablet 10/24/18 NIFEdipine [Procardia XL] 30 mg PO DAILY 11/01/18 Vit/Iron Fum/Folic AC [ Tablet] 1 each PO DAILY 11/01/18 Ibuprofen [Motrin] 600 mg PO Q6H PRN #60 tablet 11/03/18 traMADol [Ultram] 50 mg PO BID 10 Days #20 tablet 11/03/18 The following prescriptions were given: traMADol [Ultram] 50 mg PO BID 10 Days #20 tablet Ibuprofen [Motrin] 600 mg PO Q6H PRN #60 tablet PRN Reason: Pain Follow-Up: Call to make an appointment with your doctor for an incision check in 1-2 weeks. You will also need a 6 week post- follow up appointment. Test results from this visit will be discussed in further detail at your follow- up appointment, if applicable. Please Follow Up With: Lucy Valenzuela MD - [phone] When: keep your appt on wednesday11/08/18 Primary Care Physician: Sirena Blue MD [Primary Care Provider] -
--- NOTE | 2018-11-03 13:04 | PCM.DC.SUM ---
Discharge Date and Diagnosis Date of Admission: 11/01/18 Date of Discharge: 11/03/18 Hospital Course and Treatment Operations: None Procedures: - - CT guided drainage of peritoneal hematoma Summary of Care Provided: The patient is a 23 year old female who underwent a on 10/19/2018 for preeclampsia with severe features and nonreassuring heart tones presents for admission due to postoperative pain and intraperitoneal hematomas. Her postoperative course was complicated by postoperative hemorrhage and transfusion of 5 units of packed red blood cells. The patient actually tolerated this fairly well, but over the past couple of days before admission her pain began to get worse and worse and she was having trouble taking a deep breath. She started complaining of pain in her chest and right upper quadrant and in her ribs, especially with taking a deep breath. She was trying to cut back on her pain medication but was having a difficult time doing so and still being able to function. When I saw her in the office, I was quite concerned about how she looked on the compared to how she had looked postoperatively the week before in the office. I sent her to the emergency room and she had a CTA to rule out PE and a repeat CAT scan of her abdomen and pelvis. The evolving hematomas were noted. Her hemoglobin was stable. On hospital day #2 interventional radiology was able to CT-guided drain part of the hematoma in her pelvis. Patient had significant improvement in pain after that and was able to breathe much more easily. She had a drain placed. She was having no further right upper quadrant pain. Her liver function and CBC was normal and her white blood cell count was improving. Her pain was under better control. She did accept a prescription for tramadol but was uncertain if she would take it or just control her pain with ibuprofen and Motrin. I discussed with her the importance of continuing ambulation. She will be instructed on drain care. She is to follow-up in my office in 4-5 days or as needed. Prescriptions were given and home medications were confirmed. She she is to continue Procardia for now and we will monitor her blood pressures to see if we can wean this off. Call or return to the emergency room if increased shortness of breath, symptoms of severe preeclampsia or fever. Patient agrees with plan. [] - Physical Exam Vital Signs Temp Pulse Resp BP Pulse Ox 98.2 F 89 16 141/92 H 100 11/03/18 11:16 11/03/18 11:16 11/03/18 11:16 11/03/18 11:16 11/03/18 11:16 Oxygen Flow Rate (L/min) [7] 2 Oxygen Flow Rate (L/min) [6] 2 Oxygen Flow Rate (L/min) [5] 2 Oxygen Flow Rate (L/min) [3] 2 Oxygen Flow Rate (L/min) [2] 2 Oxygen Delivery Method [7] Nasal Cannula Oxygen Delivery Method [6] Nasal Cannula Oxygen Delivery Method [5] Nasal Cannula Oxygen Delivery Method [4] Nasal Cannula Oxygen Delivery Method [3] Nasal Cannula Oxygen Delivery Method [2] Nasal Cannula Oxygen Delivery Method [1 ( Room Air Initial Baseline)] Oxygen Delivery Method Room Air Weight: 54.295 kg Body Mass Index (BMI) 17.6 Intake and Output for Last 24 Hours 11/01/18 11/02/18 11/03/18 23:59 23:59 23:59 Intake Total 4812 / 4812 887 / 887 Output Total 920 / 920 180 / 180 Balance 3892 / 3892 707 / 707 Microbiology Past 72 Hours 11/02/18 14:25 Gram Stain - Final Abs - Abdominal Wound Culture - Preliminary No growth-Final to follow Laboratory Tests Past 24 Hrs 11/03/18 11/03/18 05:16 05:16 WBC 15.7 H RBC 3.03 L Hgb 8.5 L Hct 26.6 L MCV 87.8 MCH 28.1 MCHC 32.0 RDW 15.9 H RDW Differential 51.3 H Plt Count 680 H MPV 9.5 Immature Gran % (Auto) 1.500 H Neut % (Auto) 75.6 H Lymph % (Auto) 11.8 L Mccormick % (Auto) 8.9 Eos % (Auto) 1.8 Baso % (Auto) 0.4 Absolute Neuts (auto) 11.9 H Absolute Lymphs (auto) 1.85 Total Counted Not Reportable Sodium 145 Potassium 3.4 L Chloride 115 H Carbon Dioxide 22.0 Anion Gap 8 BUN 5 L Creatinine 0.43 L Estim Creat Clear Calc 177.39 Est GFR (MDRD) Af Amer 235 Est GFR (MDRD) Non-Af 195 BUN/Creatinine Ratio 11.6 Glucose 89 Calcium 7.5 L Total Bilirubin 0.40 AST 22 ALT 15 Alkaline Phosphatase 132 H Total Protein 5.6 L Albumin 1.4 L Globulin 4.2 Albumin/Globulin Ratio 0.3 L Discharge Diet: No Restrictions Discharge Activity: Return to Normal Activity, May Not Drive - for 2 weeks, May not drive while taking narcotic pain medications., May Shower, May Take a Tub Bath - in 7 days. May resume sexual activity in: 4-6 weeks Additional Activity Instructions:: Nothing in the vagina for 4-6 weeks. You may return to work/school in 6 weeks. Call your doctor if your incision/area has: Continuous Slow Oozing, Sudden Increased Bleeding, Increased Pain/ Swelling, Increased Redness, Foul Smelling Discharge Call your doctor if you observe: Fever of 101 or Higher, Using more than one pad per hour - for 2 hours Suture Line Care: Avoid Pulling/Pushing, Avoid Pinching/Bending Cleanse incision/area with: Keep Dressing Clean & Dry Home Medications: Medications to take at Discharge Acetaminophen [Tylenol] 1,000 mg PO Q8H PRN PRN #60 tablet 10/24/18 Melatonin 3 mg PO QHS tablet 10/24/18 SimETHICONE [Mylicon] 80 mg PO PCHS PRN #30 tablet 10/24/18 NIFEdipine [Procardia XL] 30 mg PO DAILY 11/01/18 Vit/Iron Fum/Folic AC [ Tablet] 1 each PO DAILY 11/01/18 Ibuprofen [Motrin] 600 mg PO Q6H PRN #60 tablet 11/03/18 traMADol [Ultram] 50 mg PO BID 10 Days #20 tablet 11/03/18 Following Prescrptions Were Given to Patient: traMADol [Ultram] 50 mg PO BID 10 Days #20 tablet Ibuprofen [Motrin] 600 mg PO Q6H PRN #60 tablet PRN Reason: Pain Primary Care Physician: Sirena Blue MD [Primary Care Provider] - Please Follow Up With: Lucy Valenzuela MD - [phone] When: keep your appt on wednesday11/08/18 Medical Necessity - Tobacco Use Smoking Status: Never smoker Meaningful Use Info Meaningful Use Diagnoses (Choose all that apply): None applicable
== END 2018-11-03 13:25 | disposition home or self-care (01) | DRG 561 ==
LOC: ED 15:15 → MS3 17:48
PROVIDERS: Emergency Medicine; Obstetrics & Gynecology; Admitting Provider Obstetrics & Gynecology; Emergency Provider Emergency Medicine; Family Provider Pediatrics; PCP Pediatrics; Referring Provider Obstetrics & Gynecology; Visit Provider Obstetrics & Gynecology
DX: O90.89 Other complications of the puerperium, not elsewhere classified (principal); E87.6 Hypokalemia; O90.81 Anemia of the puerperium; D64.9 Anemia, unspecified
CPT/HCPCS: 36415; 71275; 74177; 75989; 80053; 83605; 84550; 85025; 85610; 85730; 87070; 87075; 87205; 88108; 88305; 88313; 97802; 99156; 99157; 99284; J7030; Q9967; A4216; J2405

== ENCOUNTER 2018-11-24 11:29 | Emergency (ER) | payer OTHER, MEDICAID, SELFPAY ==
[2018-11-24] VITALS (8 sets, daily range): BP systolic 125–168; BP diastolic 74–112; PULSE 97–116; RESP 14–21; TEMP 36.5–37.2; O2SAT 97–100; BMI 16.4
--- NOTE | 2018-11-24 11:36 | ED.RN ---
SPOKE WITH DR WORKMAN ABOUT PT BP. PT HAS NOT TAKEN BP MEDS FOR SEVERAL DAYS
--- NOTE | 2018-11-24 11:48 | CT_ITS ---
STUDY: CT ABDOMEN AND PELVIS WITH CONTRAST REASON FOR EXAM: Female, 23 years old. Abdominal pain. Hypertension. Fever and headaches. RADIATION DOSAGE (If Supplied By Facility): CTDIvol = ( 5.89 ) mGy, DLP = ( 237.74 ) mGycm TECHNIQUE: Transaxial images were obtained from the dome of the diaphragm to the symphysis pubis without oral contrast. Isovue 300 100 IV was administered. Sagittal and coronal images were reconstructed. Individualized dose optimization techniques were used for this CT. COMPARISON: Comparison is made with prior study dated November 01, 2018. FINDINGS: The visualized lung bases are unremarkable. The visualized portions of the heart are within normal limits. Normal liver. Normal gallbladder and extrahepatic biliary system. Normal spleen. Normal pancreas. Normal bilateral adrenal glands. Normal right kidney. Normal left kidney. Normal visualized stomach. Normal small intestine. Normal colon. The appendix is visualized and appears normal. Normal abdominal aorta. Normal inferior vena cava. Normal retroperitoneum. The previously seen abnormal fluid collections in the lower abdomen and pelvis have improved following percutaneous drainage. There is a dominant 8.3 cm x 10.3 cm x 11.1 cm predominantly fluid collection with low-level densities within it suggestive of possible blood in the right lower abdomen and central pelvis. There is also evidence of a 1.7 cm x 3.1 cm fluid collection in the cul-de-sac. Normal abdominal wall. Loss of the normal lumbar lordosis. CT/Abdomen/Pelvis W IV Cont ONLY IMPRESSION: Residual 8.3 cm x 10.3 cm x 11.1 cm fluid collection containing increased density within the suggestive of possible blood in the right lower abdomen and central pelvis as described. The fluid collections and improved as compared to prior study. Electronically Signed: Fawad Lopez, at 14:21 EDT , Service support ,
--- NOTE | 2018-11-24 11:48 | CT_ITS ---
STUDY: CT BRAIN WITHOUT CONTRAST REASON FOR EXAM: Female, 23 years old. Headaches and fever. Hypertension. RADIATION DOSAGE (If Supplied By Facility): CTDIvol = ( 44.99 ) mGy, DLP = ( 745.49 ) mGycm TECHNIQUE: Transaxial CT imaging of the brain was performed without administration of intravenous contrast material. Individualized dose optimization techniques were used for this CT. COMPARISON: None. FINDINGS: Normal soft tissue structures. Normal calvarium. Normal size ventricles and extra-axial spaces for the patient's age. Normal white matter tracts of the cerebral hemispheres. Normal basal ganglia and thalami. Normal brainstem. Normal cerebellum. There is no intracranial hemorrhage. There are no findings of an acute ischemic infarction. Normal visualized paranasal sinuses. CT/Brain/Head without Contrast IMPRESSION: Normal unenhanced CT scan of the brain. Electronically Signed: Fawad Lopez, at 14:15 EDT , Service support ,
[2018-11-24] MEDS: Morphine 4 MG/ML Syringe IV (12:17)
--- NOTE | 2018-11-24 12:17 | ED.VISSUMM ---
- ER Visit Summary Date of Service: 11/24/18 Chief Complaint: Abdominal pain History of Present Illness: The patient is a 23 F has a history of a section on October 19, 2018. Her was complicated with preeclampsia. She had an intra-abdominal hematoma with a drain as well. The drain is currently removed. She is having increasing lower abdominal pain. There is concern for infection. She also reports that she has a headache in the bitemporal region. She is prescribed blood pressure medicine, but says she did not take it today. She denies any mental status changes. Denies any swelling. She does report that she is having fevers intermittently since the delivery. Physical Examination: Afebrile. Heart rate 116 and respiratory rate 20. Blood pressure 168/104. Patient appears uncomfortable and depressed. Alert and oriented. HEENT exam unremarkable. Neck is nontender with good range of motion. Heart tachycardic but regular. Lungs clear. Abdomen is tender in the lower hemiabdomen. There is some fullness over her suprapubic area on palpation. Skin appears normal. No edema. No focal or lateralizing neurologic abnormalities grossly. Test Results: Labs, urine, cultures, CT pending. Emergency Department Course and Treatment: Patient treated with morphine while awaiting results. I was concerned for complications from her delivery as well as her blood pressure and preeclampsia. Patient had continued high blood pressure. I did order some labetalol, but when the nurse checked on the patient, her systolic had dropped to 125 and so he did not administer labetalol. We continue to monitor. CT showed what appeared to be a clot in the right lower quadrant measuring 8.3 x 10.3 x 11.1 centimeters. Hemoglobin was stable. White count 12.1. Labs otherwise fairly unremarkable. This was discussed with OB, and they would like to follow-up with her in the office. She should call in the morning. She was given a short course of Percocet as well as Zofran. She has her blood pressure meds at home and will resume those. Patient will be discharged. Treatment Plan: As above Disposition: Discharge Impression: 1. Right lower quadrant blood clot 2. Hypertension This note was generated with [employer] software. It may contain incorrect words, spelling, and punctuation that were not noted in review of the chart prior to signing ED Disposition - Plan for ED Patient: Referrals: Sirena Blue MD [Primary Care Provider] -
--- NOTE | 2018-11-24 12:21 | ED.DCSUM_ITS ---
- ER Visit Summary Date of Service: 11/24/18 Chief Complaint: Abdominal pain History of Present Illness: The patient is a 23 F has a history of a section on October 19, 2018. Her was complicated with preeclampsia. She had an intra-abdominal hematoma with a drain as well. The drain is c urrently removed. She is having increasing lower abdominal pain. There is concern for infection. She also reports that she has a headache in the bitemporal region. She is prescribed blood pressure medicine, but says she did not take it today. She denies any mental status changes. Denies any swelling. She does report that she is having fevers intermittently since the delivery. Physical Examination: Afebrile. Heart rate 116 and respiratory rate 20. Blood pressure 168/104. Patient appears uncomfortable and depressed. Alert and oriented. HEENT exam unremarkable. Neck is nontender with good range of motion. Heart tachycardic but regular. Lungs clear. Abdomen is tender in the lower hemiabdomen. There is some fullness over her suprapubic area on palpation. Skin appears normal. No edema. No focal or lateralizing neurologic abnormalities grossly. Test Results: Labs, urine, cultures, CT pending. Emergency Department Course and Treatment: Patient treated with morphine while awaiting results. I was concerned for complications from her delivery as well as her blood pressure and preeclampsia. Patient had continued high blood pressure. I did order some labetalol, but when the nurse checked on the patient, her systolic had dropped to 125 and so he did not administer labetalol. We continue to monitor. CT showed what appeared to be a clot in the right lower quadrant measuring 8.3 x 10.3 x 11.1 centimeters. Hemoglobin was stable. White count 12.1. Labs otherwise fairly unremarkable. This was discussed with OB, and they would like to follow-up with her in the office. She should call in the morning. She was given a short course of Percocet as well as Zofran. She has her blood pressure meds at home and will resume those. Patient will be discharged. Treatment Plan: As above Disposition: Discharge Impression: 1. Right lower quadrant blood clot 2. Hypertension This note was generated with [employer] software. It may contain incorrect words, spelling, and punctuation that were not noted in review of the chart prior to signing ED Disposition - Plan for ED Patient: Referrals: Sirena Blue MD [Primary Care Provider] -
[2018-11-24 12:36] LABS: Absolute Lymphocyte Count 1.63 X10^3/ul (0.83-4.51); Absolute Neutrophil Count 9.8 X10^3/uL (2.0-7.7); Basophil# 0.01 X10^3/uL; Basophil% 0.1 % (0-1); Eosinophil# 0.09 X10^3/uL; Eosinophils% 0.7 % (0-5); Hematocrit 26.9 % (37-47); Lymphocyte # 1.63 X10^3/ul (4.0); Lymphocyte % 13.5 % (19-41); Mean Corp Hgb Conc 29.7 g/gl (32-36); Mean Corpuscular Hgb 25.2 pg (27.0-32.0); Mean Corpuscular Volume 84.6 fL (81-99); Mean Platelet Vol. 10.3 fl (6.2-12.0); Monocyte# 0.59 X10^3/uL; Monocyte% 4.9 % (0-10); Neutrophil # 9.75 X10^3/uL (2.7-7.7); Neutrophil % 80.6 % (47-70); Platelet Count 453 K/mm3 (150-450); RBC Distribution Width CV 16.3 % (11.6-14.6); RBC Distribution Width SD 50.4 fl (35.1-43.9); Red Blood Count 3.18 M/mm3 (4.2-5.4); White Blood Count 12.1 K/mm3 (4.4-11.0)
[2018-11-24 12:37] LABS: POSITIVE COUNT NO; POSITIVE DIFFERENTIAL NO; POSITIVE MORPHOLOGY NO
[2018-11-24 12:38] LABS: International Normalized Ratio 1.3; Prothrombin Time (Protime)PT. 16.1 SECONDS (11.7-14.9)
[2018-11-24 12:39] LABS: Partial Thromboplast Time 43.2 Seconds (24.1-36.2)
[2018-11-24 12:48] LABS: ALB/GLOB Ratio 0.4 RATIO (0.9-2.4); AST(SGOT) 12 U/L (15-37); Alanine Aminotransfer ALT/SGPT < 6 U/L (13-56); Albumin, Serum 2.3 g/dL (3.2-5.0); Alkaline Phosphatase 160 U/L (45-117); Anion Gap 9 (5-15); BUN 7 mg/dL (7-18); BUN/Creat Ratio 10.8 RATIO (10-20); Calcium,Total 8.4 mg/dL (8.5-10.1); Chloride 105 mmol/L (98-107); Creatinine, Serum 0.65 mg/dL (0.55-1.02); EST Glomerular Filtration Rate 122 mL/min (>60); Est Glom Filt Rate - Afr Amer 148 mL/min (>60); Estimated Creatinine Clearance 105.88 ml/min; Globulin 6.1 g/dL (2.2-4.2); Glucose 77 mg/dL (74-106); Potassium 3.4 mmol/L (3.5-5.1); Protein, Total 8.4 g/dL (6.4-8.2); Sodium Level 139 mmol/L (136-145)
[2018-11-24 13:08] LABS: Lactic Acid 1.3 mmol/L (0.4-2.0)
[2018-11-24 13:17] LABS: hCG Titer Quant., Serum < 1 mIU/mL (<9 non-preg)
[2018-11-24 15:19] LABS: Bacteria 0 SEEN /hpf (None Seen); Mucous, Urine 0 SEEN /hpf (<or=2+); Red Blood Cells-Urine 0 SEEN /hpf (0-5)
[2018-11-24 15:51] LABS: Color, Urine Yellow (Yellow); Glucose, Dipstick Normal (Normal); Ketone-Dipstick 50 mg/dl (Negative); Leukocyte Esterase-Dipstick Negative /ul (Negative); Nitrite-Dipstick Negative (Negative); Occult Blood-Urine 10 /ul (Negative); Protein-Dipstick 30 mg/dl (Negative); Specific Gravity, Urine 1.005 (1.002-1.030); Urine Bilirubin Dipstick Negative (Negative); Urine Clarity Clear (Clear); Urine Urobilinogen 4 mg/dl (Normal)
[2018-11-24] MEDS: HYDROcodone Bitartrate/Apap 5/325 Tablet PO (16:06)
[2018-11-24 16:24] LABS: Squamous Epithelial Cells - UA 0-5 SEEN /hpf (5-10); White Blood Cells 0-5 SEEN /hpf (0-5)
--- NOTE | 2018-11-24 16:43 | ED.DEP ---
ED Disposition - Plan for ED Patient: Instructions: Discharge Instructions for High Blood Pressure (Hypertension) Prescriptions: Oxycodone HCl/Acetaminophen [Percocet 5/325] 1 tab PO Q6H PRN PRN 3 Days #12 tab PRN Reason: Pain Referrals: Lucy Valenzuela MD [STAFF PHYSICIAN] - 1 Day
== END 2018-11-24 16:58 | disposition home or self-care (01) ==
LOC: ED 12:13
PROVIDERS: Emergency Provider Emergency Medicine; Family Provider Pediatrics; PCP Pediatrics
DX: O88.23 Thromboembolism in the puerperium (principal); I10 Essential (primary) hypertension
CPT/HCPCS: 36415; 70450; 74177; 80053; 81001; 83605; 84702; 85025; 85610; 85730; 87040; 87086; 96374; 96375; 99284; Q9967; A4216

== ENCOUNTER 2018-12-01 17:23 | Inpatient (IN) | payer MEDICAID, SELFPAY ==
[2018-11-24 11:30] VITALS: BMI 16.4
[2018-12-01] VITALS (23 sets, daily range): BP systolic 130–194; BP diastolic 56–134; PULSE 76–118; RESP 14–20; TEMP 36.3–37.4; O2SAT 96–100; BMI 15.7
[2018-12-01 13:42] LABS: Hematocrit 30.9 % (37-47); Hemoglobin 8.9 g/dl (12.0-15.0); Mean Corp Hgb Conc 28.8 g/gl (32-36); Mean Corpuscular Hgb 24.8 pg (27.0-32.0); Mean Corpuscular Volume 86.1 fL (81-99); Mean Platelet Vol. 9.7 fl (6.2-12.0); Platelet Count 547 K/mm3 (150-450); RBC Distribution Width CV 16.1 % (11.6-14.6); RBC Distribution Width SD 49.7 fl (35.1-43.9); Red Blood Count 3.59 M/mm3 (4.2-5.4); White Blood Count 9.4 K/mm3 (4.4-11.0)
[2018-12-01 13:43] LABS: Scan Indicated on CBC? Y/N NO
[2018-12-01 14:12] LABS: Pregnancy, Serum, hCG Quali. NEGATIVE Negative (0-9 Nonpreg)
--- NOTE | 2018-12-01 14:30 | THRO_PTH ---
PATIENT: SANIYA STUART LOC: [facility] U#:[id number] AGE/SX: 23 ROOM: [facility]311 RE12/01/[address]: Dr. Lucy Valenzuela MD : 1995 BED: 1 DIS: 12/03/2018 SPEC #: [id number] RECD: 12/02/18 07:32 STATUS: ANGELI REQ #: [id number] RAJENDRA: 12/01/18 14:[address]: Lucy Valenzuela DEPT: SURGICAL PATHOLOGY RECD BY: Juan Avendaño ENTERED: 12/02/18 10:05 SP TYPE: THROMBUS OTHR DR: MD Dr. Adrián Holly MD Tissues: Peritoneal cavity, NOS Procedures: Surgery Specimen Level III HEADER OPERATION: Laparoscopy, laparotomy PRE-OP DIAGNOSIS: Intraperitoneal hematoma TISSUE SUBMITTED: Peritoneal hematoma MICROSCOPIC DIAGNOSIS Peritoneal hematoma: Blood clot, clinically peritoneal hematoma. SJ:eliane 12/05/18 MICROSCOPIC DESCRIPTION Slides are reviewed. GROSS DESCRIPTION Received in fixative is one container labeled with the patient's name and designated peritoneal hematoma. The specimen consists of multiple irregular fragments of dark miller blood clot that in aggregate measure 13 x 9.5 x 2 cm. Sections do not reveal distinct lesions. Lease Out Man sections are submitted in two cassettes. / AM:eliane 12/02/18 TC:5 CPT: 93598
--- NOTE | 2018-12-01 15:11 | PCM.HP.BLA ---
History and Physical Date of Admission: 12/01/18 23-year-old female who underwent a primary hysterectomy in October 19, 2018. He had she had immediate postoperative hemorrhage and resulted in several units of blood being transfused. The resulting hematomas in her peritoneal cavity have persisted. They continue to cause her pain, difficulty with urination, decreased appetite. They are limiting her activity and she had to take tramadol or Percocet along with acetaminophen and NSAIDs to control her pain. On November 03, she had a CT-guided drainage. However, another large, firm easily palpable mass remains. Review of systems: Patient denies any chest pain, shortness of breath, cough, fevers or chills. She has no lightheadedness or dizziness. She denies any prolonged bleeding or easy bruising. She has had minimal vaginal bleeding. Past surgical history: Significant for section on October 19, 2018. PE- general: Awake, alert, no acute distress Lungs clear to auscultation bilaterally S1-S2 regular rate and rhythm skin: Warm dry and intact Abdomen: incision is intact and well-healed. She has a firm, tender mass that is approximately the size of a 12-week uterus that slightly to the right of the midline in her lower abdomen. There is no hernias. There is no rebound or guarding Assessment plan: 23-year-old female status post with intraperitoneal hematoma for 6 weeks now that has not resolved. Significant pain and limitations of her activity remain. At this point she desires definitive removal with form of laparoscopic evacuation of hematoma, she understands possible conversion to laparotomy. She is accepting of a blood transfusion if needed.
[2018-12-01] MEDS: Cefazolin 2 GM in 0.9% Normal Saline 100 ML IV (16:05)
--- NOTE | 2018-12-01 16:17 | DCINST_ITS ---
Discharge Diet: No Restrictions - Increase fluid intake for the next 48 hours. Discharge Activity: Return to Normal Activity, May Drive - when you are no longer taking pain/narcotic meds., May Shower, May Take a Tub Bath - in 7 days May shower in (days): 1 May resume sexual activity in: 1 week Weight Bearing Status: Full weight bearing Additional Activity Instructions:: Ambulate often the next week after surgery. Nothing in the vagina for 5 days. Call your doctor if your incision/area has: Continuous Slow Oozing, Sudden Increased Bleeding, Increased Pain/ Swelling, Increased Redness, Foul Smelling Discharge Call your doctor if you observe: Fever of 101 or Higher Cleanse incision/area with: Soap & Water Allergies/Adverse Reactions: Allergies No Known Allergies Allergy (Verified 11/24/18 11:33) Medications to take at Discharge NIFEdipine [Procardia XL] 30 mg PO DAILY 11/01/18 Vit/Iron Fum/Folic AC [ Tablet] 1 each PO DAILY 11/01/18 Ondansetron [Zofran Odt] 4 mg PO Q8H PRN PRN #10 tab 11/24/18 Oxycodone HCl/Acetaminophen [Percocet 5-325 mg Tablet] 1 - 2 tab PO Q6H PRN 5 Days #20 tablet 12/01/18 Pyridium 100 mg PO BID #4 12/01/18 The following prescriptions were given: Pyridium 100 mg PO BID #4 Oxycodone HCl/Acetaminophen [Percocet 5-325 mg Tablet] 1 - 2 tab PO Q6H PRN 5 Days #20 tablet PRN Reason: Pain Primary Care Physician: Sirena Blue MD [Primary Care Provider] - Test Results: Test results from this visit will be discussed in further detail at your follow- up appointment, if applicable. Please Follow Up With: Lucy Valenzuela MD - [phone] When: 1-2 weeks or as needed
[2018-12-01] MEDS: Bupivacaine Mpf 0.5% 30 ML VIAL (17:00)
--- NOTE | 2018-12-01 17:22 | PCM.OPRPT ---
Report of Operation Date of Procedure: 12/01/18 Pre-Operative Diagnosis: abdominal pain, peritoneal hematoma, anemia due to blood loss during previous surgery Post-Operative Diagnosis: same Surgery/Procedure Performed:: diagnostic laparascopy, laparatomy with evaculation of hematoma electrician research: Beba Cadena Type of Anesthesia:: General Anesthesiologist: Carlee Alexandra Special Medications: none Specimen's removed: hematoma, cultures of abdominal cavity Drains: ROSEY of abdomen Estimated Blood Loss (mL): 100cc Fluids Replaced: 1800cc lr Description of Procedure: Patient was taken operating room was prepped draped normal sterile fashion dorsal lithotomy position. A weighted speculum was placed in the vagina and the anterior lip of cervix was grasped with a tenaculum. The uterine manipulator was placed in standard fashion. Attention was turned to the abdomen and 5 mm intraumbilical incision was made and the 5 mm blade less trocar and sleeve advanced directly the peritoneal cavity with the Optiview port. Peritoneal placement was confirmed. Pneumoperitoneum was created. There was some minimal adhesions of bowel and omentum that a lateral port could not even be safely placed. At this point, decision was made to perform a laparotomy. Incision was made through prior existing scar and carried through to underlying layer of the fascia which was very indurated. Care was taken upon entry into the peritoneal cavity because of the edematous tissue. I was able to enter into the peritoneal cavity and directly into the hematoma space. Amount of clot and fibrinous material was removed. This point, there are still multiple adhesions noted. The hematoma base was still noted. However, because of how edematous and indurated all the tissue was, the decision was made to remove the fibrinous capsule of the hematoma because it was adhered to bowel and other structures. This point, the peritoneal cavity was irrigated with copious amounts of warm normal saline. No active bleeding was noted. A drain was placed into the cavity. It was brought out through the midline of the abdominal cavity approximately 2 inches above her incision scar. The drain was secured. Laparoscopic port was closed in subcuticular fashion. The fascia was closed with 0 PDS suture in a running standard fashion. Yuan was placed over the rectus muscles and in the cavity of the hematoma. The skin was closed in a subcuticular fashion with 3-0 Monocryl suture. Performed the entire procedure with assistance. He was made to give the patient 2 units packed red blood cells since her hemoglobin is not increased significantly over 6 weeks likely have another slight decrease in after today's surgery. Grafts/Implants Used: none - Complications none - Admit VTE Documentation VTE Present on Admission: No VTE Mechan Device Prophylaxis: SCD's VTE Pharm Prophylaxis ordered?: No Reason prophylaxis not ordered:: Medical Contraindication
[2018-12-01] MEDS: Ketorolac 30 MG/ML Syringe IV ×2 (18:22→23:36)
[2018-12-01] MEDS: DiphenhydrAMINE 50 MG/ML Syringe 25 MG IV (18:23)
[2018-12-01] MEDS: oxyCODONE 5 MG Tablet PO (23:00)
[2018-12-01] MEDS: hydrALAZINE 20 MG/ML Vial 10 MG IV (23:01)
[2018-12-01] MEDS: Ondansetron 4 MG/2 ML Vial IV (23:32)
--- NOTE | 2018-12-01 23:36 | CON.PCM_ITS ---
Problem List (1) Hypertensive urgency Status: Acute (2) Pre-eclampsia Status: Acute Reason for Consult Date of Consultation: 12/01/18 Reason for Consultation: Severely elevated blood pressure History of Present Illness: The patient is a 23 year old F with a previous history of migraine, s/p C- section with successful delivery of baby girl on October 19 2018 and who had a hematoma evacuation on 12/01/2018. Tracie-operatively for her hematoma evacuation patient was noted to have elevated blood pressure with highest blood pressure of 193/127. Patient overall received 60 mg of labetalol in increments of 5 mg and 10 mg. Initially her heart rate was elevated at 120. After receiving blood her heart rate went into the 70s. Patient received a total of 2 units of blood. Reportedly patient was not hypertensive before but during her course of she developed hypertension (pre-eclampsia). Home patient takes Procardia 30 mg daily and she took her Procardia the morning before her hematoma evacuation. At the time of examination the patient was very lethargic. Her mother reported that patient was been having back pain and abdominal pain as well as dysuria before the hematoma evacuation. Her mother reported that a previous CT of the abdomen showed a blood clot in her abdomen. Per mother patient was being treated outpatient for probable UTI. Past Medical History Medical History: Medical History (Last Reviewed 12/02/18 @ 00:39 by Adrián Bynum MD) delivery delivered O82 Allergies No Known Allergies Allergy (Verified 11/24/18 11:33) Home Medications: Ambulatory Orders Medication Instructions Recorded NIFEdipine [Procardia XL] 30 mg PO DAILY 11/01/18 Vit/Iron Fum/Folic AC 1 each PO DAILY 11/01/18 [ Tablet] Ondansetron [Zofran Odt] 4 mg PO Q8H PRN PRN #10 tab 11/24/18 Oxycodone HCl/Acetaminophen 1 - 2 tab PO Q6H PRN 5 Days #20 12/01/18 [Percocet 5-325 mg Tablet] tablet Pyridium 100 mg PO BID #4 12/01/18 Surgical History: tonsillectomy, - - ; peritoneal hematoma evacuation. Lives: With Family Smoking Status: Never smoker Alcohol: None - *Family History Maternal History Items: Diabetes, Hypertension Paternal History Items: Diabetes, Hypertension Review of Systems Constitutional: Denies: Chills, Fever, Weight Change HEENT: Denies: Head Aches, Sinus Congestion, Sinus Drainage Cardiovascular: Denies: Chest Pain, Palpitations Respiratory: Denies: Cough, Shortness of breath at rest, Sputum production Gastrointestinal: Reports: Abdominal Pain. Denies: Nausea, Vomiting Genitourinary: Reports: Dysuria Musculoskeletal: Reports: Back Pain. Denies: Joint Pain, Joint Tenderness Skin: Denies: Rash, Wounds Neurological: Denies: Numbness, Tingling, Focal weakness Psychiatric: Denies: Anxiety, Depression, Homicidal Ideations, Suicidal Ideations Hematologic/ Lymphatic: Denies: Easy Bruising, Easy Bleeding Patient Problems: Active and Suspected Problems (Last Reviewed 12/02/18 @ 00:39 by Adrián Bynum MD) Hypertensive urgency (Acute) Pre-eclampsia (Acute) - Physical Exam General: Oriented x3, Lethargic HEENT: Atraumatic, PERRLA, EOMI, Normocephalic Neck: Supple, No JVD, Negative Carotid Bruits Lungs: Clear to auscultation, Normal air movement Cardiovascular: Regular rate, No murmurs Abdomen: Bowel Sounds Present, Soft, Tender, - - ROSEY drain emanating from abdomen. Dressing dry and intact. Extremities: No edema, Capillary Refill Less than 3 Seconds Skin: No rashes, No breakdown Musculoskeletal: No Tenderness to Palpation of Joints or Extremities Neurological: Neuro grossly intact - Patient is lethargic., - Psych/Mental Status: Normal Affect, Appropriate Vital Signs Temp Pulse Resp BP Pulse Ox 97.7 F L 80 16 160/56 H 97 12/01/18 22:11 12/01/18 23:01 12/01/18 22:11 12/01/18 23:01 12/01/18 22:11 Oxygen Delivery Method Room Air Weight: 48.2 kg Body Mass Index (BMI) 15.7 Intake and Output for Last 24 Hours 11/29/18 11/30/18 12/01/18 23:59 23:59 23:59 Intake Total 1900 / 1900 Output Total 630 / 630 Balance 1270 / 1270 Laboratory Tests Past 24 Hrs 12/01/18 12/01/18 12/01/18 13:30 13:30 13:30 WBC 9.4 RBC 3.59 L Hgb 8.9 L Hct 30.9 L MCV 86.1 MCH 24.8 L MCHC 28.8 L RDW 16.1 H RDW Differential 49.7 H Plt Count 547 H MPV 9.7 Serum , Qual NEGATIVE Blood Type O POSITIVE Antibody Screen NEGATIVE Crossmatch See Detail Assessment/Plan All Active Problems (Last Reviewed 12/02/18 @ 00:39 by Adrián Bynum MD) Acute blood loss anemia (Acute) Hypertensive urgency (Acute) Pre-eclampsia (Acute) The patient is a 23 year old F with a previous history of migraine, s/p C- section with successful delivery of baby girl on October 19 2018 and who had a hematoma evacuation on 12/01/2018 and with severely elevated blood pressure perioperatively concerning for hypertensive emergency in the setting of preeclampsia. Hypertensive urgency Her Procardia 30 mg is due next a.m. We will escalate Procardia to 60 mg daily in the a.m. Meanwhile we will order as needed hydralazine for systolic blood pressure more than 160. Trend blood pressures. Parastomal hematoma status post evacuation POLICE DETECTIVE is following. On schedule oxycodone. Patient requested home Colace to be restarted. Colace reordered. History of migraine. Patient is on home for Fioricet. Meanwhile he is on as needed acetaminophen at this time. Continue acetaminophen as needed. Adjust medication as needed DVT prophylaxis SCD Code Visit OBSV E&M: 67132 Initial observation care L3
[2018-12-02] VITALS (14 sets, daily range): BP systolic 122–155; BP diastolic 63–101; PULSE 77–142; RESP 14–18; TEMP 36.8–37.1; O2SAT 96–100
[2018-12-02] MEDS: HYDROmorphone 1 MG/ML Syringe IV ×3 (02:26→18:13)
[2018-12-02] MEDS: Ketorolac 30 MG/ML Syringe IV ×3 (05:25→17:14)
[2018-12-02 06:13] LABS: Ferritin 410 ng/mL (8-252); Iron Binding Capacity,Total 160 ug/dL (250-450)
[2018-12-02 06:25] LABS: Hematocrit 31.2 % (37-47); Immature Platelet Fraction 1.6 % (1.0-7.9); Mean Corp Hgb Conc 32.1 g/gl (32-36); Mean Corpuscular Hgb 27.4 pg (27.0-32.0); Mean Corpuscular Volume 85.5 fL (81-99); Mean Platelet Vol. 9.3 fl (6.2-12.0); Platelet Count 420 K/mm3 (150-450); RBC Distribution Width SD 50.5 fl (35.1-43.9); RET-HE 24.2 pg (30-35); Red Blood Count 3.65 M/mm3 (4.2-5.4); Reticulocyte Count 2.18 % (0.5-1.5); White Blood Count 9.3 K/mm3 (4.4-11.0)
[2018-12-02 06:33] LABS: Scan Indicated on CBC? Y/N YES- FLAGS NOTED
[2018-12-02] MEDS: oxyCODONE 5 MG Tablet PO ×2 (08:18→20:58)
--- NOTE | 2018-12-02 08:46 | PCM.PN.OB ---
Patient Problems: Active and Suspected Problems (Last Reviewed 12/02/18 @ 00:39 by Adrián Bynum MD) Hypertensive urgency (Acute) Pre-eclampsia (Acute) Subjective: Patient complains of abdominal pain. Still not much of an appetite. No specific nausea. Denies any chest pain, shortness of breath, or lightheadedness. Denies any palpitations. - Physical Exam General: Alert, Cooperative, No apparent distress Abdomen: Soft, Distended - mildly softly, Tender - Appropriately Extremities: No edema Vital Signs Temp Pulse Resp BP Pulse Ox 98.4 F 84 14 134/74 H 97 12/02/18 08:11 12/02/18 08:11 12/02/18 08:11 12/02/18 08:11 12/02/18 08:11 Oxygen Delivery Method Room Air Weight: 48.2 kg Body Mass Index (BMI) 15.7 Intake and Output for Last 24 Hours 11/30/18 12/01/18 12/02/18 23:59 23:59 23:59 Intake Total 1900 / 1900 741 / 741 Output Total 630 / 630 515 / 515 Balance 1270 / 1270 226 / 226 Laboratory Tests Past 24 Hrs 12/01/18 12/01/18 12/01/18 13:30 13:30 13:30 WBC 9.4 RBC 3.59 L Hgb 8.9 L Hct 30.9 L MCV 86.1 MCH 24.8 L MCHC 28.8 L RDW 16.1 H RDW Differential 49.7 H Plt Count 547 H MPV 9.7 Differential Comment Immature Plt Fraction Retic Count Immature Retic Fraction Retic Hgb Equivalent TIBC Ferritin Serum , Qual NEGATIVE Blood Type O POSITIVE Antibody Screen NEGATIVE Crossmatch See Detail 12/02/18 12/02/18 05:22 05:22 WBC 9.3 RBC 3.65 L Hgb 10.0 L Hct 31.2 L MCV 85.5 MCH 27.4 MCHC 32.1 RDW 16.0 H RDW Differential 50.5 H Plt Count 420 MPV 9.3 Differential Comment Immature Plt Fraction 1.6 Retic Count 2.18 H Immature Retic Fraction 14.30 Retic Hgb Equivalent 24.2 L TIBC 160 L Ferritin 410 H Serum , Qual Blood Type Antibody Screen Crossmatch Medical Necessity - Tobacco Use Smoking Status: Never smoker Assessment/Plan All Active Problems (Last Reviewed 12/02/18 @ 00:39 by Adrián Bynum MD) Acute blood loss anemia (Acute) Hypertensive urgency (Acute) Pre-eclampsia (Acute) Postoperative day #1 status post exploratory laparotomy with evacuation of large abdominal hematoma From a postoperative standpoint, findings were reviewed. We will continue routine postop care. Continue ROSEY drain for now as we do not want the hematoma to reaccumulate in the cavity. Iron deficiency anemia with poor nutritional status. She is status post 2 units of packed red blood cells. Her persistent tachycardia has improved with this. However she is continues to be severely iron deficient despite taking p.o. iron at home. Would recommend consideration of IV iron. nutrition consult ordered for today to help patient w/ dietary planning for discharge as she has continued to lose wt ambulate BP better controlled, s/p severe hypertensive episode similar to around delivery. BPs in office were controlled welll before this. IF she does well today, would consider d/c home but likely will be tomorrow desires something for bladder spasms, urispas ordered
[2018-12-02] MEDS: NIFEdipine 60 MG Tablet PO (09:29)
[2018-12-02] MEDS: Phenazopyridine 95 MG Tablet PO ×2 (09:29→17:14)
--- NOTE | 2018-12-02 11:41 | PCM.PN.HOSP ---
Patient Problems: Active and Suspected Problems (Last Reviewed 12/02/18 @ 00:39 by Adrián Bynum MD) Hypertensive urgency (Acute) Pre-eclampsia (Acute) Subjective: Follow-up hypertensive urgency Patient feels okay at this time does still have some abdominal discomfort but no other complaints. Vitals/I&O's: Vital Signs Temp Pulse Resp BP Pulse Ox 36.9 C 84 14 134/74 H 96 12/02/18 08:11 12/02/18 08:11 12/02/18 08:11 12/02/18 08:11 12/02/18 11:20 Oxygen Delivery Method Room Air Weight: 48.2 kg Body Mass Index (BMI) 15.7 Intake and Output for Last 24 Hours 11/30/18 12/01/18 12/02/18 23:59 23:59 23:59 Intake Total 1900 / 1900 741 / 741 Output Total 630 / 630 515 / 515 Balance 1270 / 1270 226 / 226 General: Alert, No apparent distress HEENT: Atraumatic, Normocephalic Oral: Moist Mucosa, No Gingival or Mucosal Lesions/ Ulcerations Neck: No Nodes, Thyroid Normal Size and Texture Lungs: Clear to auscultation, Normal air movement, No rhonchi, No wheeze Cardiovascular: Regular rate, Regular Rhythm, Normal S1, Normal S2, No murmurs Abdomen: Bowel Sounds Present, Soft, Non-Distended, No Hepato-splenomegaly Extremities: No edema, No Calf Tenderness Skin: No rashes, No breakdown Psych/Mental Status: Appropriate, Flat Affect Microbiology Past 72 Hours 12/01/18 17:01 Aspirate - Abdominal Gram Stain - Final Laboratory Results 12/01/18 13:30: WBC 9.4, RBC 3.59 L, Hgb 8.9 L, Hct 30.9 L, MCV 86.1, MCH 24.8 L, MCHC 28.8 L, RDW 16.1 H, RDW Differential 49.7 H, Plt Count 547 H, MPV 9.7 12/01/18 13:30: Blood Type O POSITIVE, Antibody Screen NEGATIVE, Crossmatch See Detail 12/01/18 13:30: Serum , Qual NEGATIVE 12/02/18 05:22: TIBC 160 L, Ferritin 410 H 12/02/18 05:22: WBC 9.3, RBC 3.65 L, Hgb 10.0 L, Hct 31.2 L, MCV 85.5, MCH 27.4, MCHC 32.1, RDW 16.0 H, RDW Differential 50.5 H, Plt Count 420, MPV 9.3, Differential Comment , Immature Plt Fraction 1.6, Retic Count 2.18 H, Immature Retic Fraction 14.30, Retic Hgb Equivalent 24.2 L Current Medications Acetaminophen (Tylenol) 1,000 mg PO Q8H PRN PRN PRN Reason: Mild pain or fever (>99.6F) Hydralazine HCl (Apresoline Iv) 10 mg IV Q4H PRN PRN PRN Reason: SBP > 160 Last Admin: 12/01/18 23:01 Dose: 10 mg Hydromorphone HCl (Dilaudid Inj) 0.5 - 1.5 mg IV Q3H PRN PRN PRN Reason: Moderate-Severe Pain (4-10/10) Last Admin: 12/02/18 02:26 Dose: 1 mg Ketorolac Tromethamine (Toradol) 30 mg IV Q6H [facility] Stop: 12/06/18 18:04 Last Admin: 12/02/18 05:25 Dose: 30 mg Nifedipine (Procardia Xl) 60 mg PO DAILY [facility] Last Admin: 12/02/18 09:29 Dose: 60 mg Nutritional Formula (Lactose Free) (Ensure Enlive) 120 ml PO 4X/DAY [facility] Last Admin: 12/02/18 09:29 Dose: 120 ml Ondansetron HCl (Zofran) 4 mg IV Q4H PRN PRN PRN Reason: NAUSEA Last Admin: 12/01/18 23:32 Dose: 4 mg Oxycodone HCl (Oxyir) 5 - 10 mg PO Q4H PRN PRN PRN Reason: MOD-SEVERE PAIN (4-10/10) Last Admin: 12/02/18 08:18 Dose: 10 mg [facility] ([facility] Standard) [facility] Last Admin: 12/02/18 09:29 Dose: 95 mg Simethicone (Mylicon) 80 mg PO [facility] Last Admin: 12/02/18 08:20 Dose: 80 mg Sodium Chloride () 5 - 15 ml IV UD PRN PRN Reason: SALINE FLUSH Medical Necessity - Tobacco Use Smoking Status: Never smoker Assessment/Plan All Active Problems (Last Reviewed 12/02/18 @ 00:39 by Adrián Bynum MD) Acute blood loss anemia (Acute) Hypertensive urgency (Acute) Pre-eclampsia (Acute) 1. Hypertensive urgency: Improved. Patient currently on Procardia XL 60 mg, up from her 30 mg dosing from home. Would continue with that and have her follow-up with her primary care physician the next 1-2 weeks. 2. Abdominal wall hematoma: Postop day #1 status post expiratory laparotomy. Management per gynecology. Medically stable for discharge. Will follow along during the course of the patient's hospitalization for now. Discussed with family at bedside Code Visit Inpatient E&M: 80808 Subs Hosp L2
--- NOTE | 2018-12-02 11:45 | PN_ITS ---
Patient Problems: Active and Suspected Problems (Last Reviewed 12/02/18 @ 00:39 by Adrián Bynum MD) Hypertensive urgency (Acute) Pre-eclampsia (Acute) Subjective: Follow-up hypertensive urgency Patient feels okay at this time does still have some abdominal discomfort but no other complaints. Vitals/I&O's: Vital Signs Temp Pulse Resp BP Pulse Ox 36.9 C 84 14 134/74 H 96 12/02/18 08:11 12/02/18 08:11 12/02/18 08:11 12/02/18 08:11 12/02/18 11:20 Oxygen Delivery Method Room Air Weight: 48.2 kg Body Mass Index (BMI) 15.7 Intake and Output for Last 24 Hours 11/30/18 12/01/18 12/02/18 23:59 23:59 23:59 Intake Total 1900 / 1900 741 / 741 Output Total 630 / 630 515 / 515 Balance 1270 / 1270 226 / 226 General: Alert, No apparent distress HEENT: Atraumatic, Normocephalic Oral: Moist Mucosa, No Gingival or Mucosal Lesions/ Ulcerations Neck: No Nodes, Thyroid Normal Size and Texture Lungs: Clear to auscultation, Normal air movement, No rhonchi, No wheeze Cardiovascular: Regular rate, Regular Rhythm, Normal S1, Normal S2, No murmurs Abdomen: Bowel Sounds Present, Soft, Non-Distended, No Hepato-splenomegaly Extremities: No edema, No Calf Tenderness Skin: No rashes, No breakdown Psych/Mental Status: Appropriate, Flat Affect Microbiology Past 72 Hours 12/01/18 17:01 Aspirate - Abdominal Gram Stain - Final Laboratory Results 12/01/18 13:30: WBC 9.4, RBC 3.59 L, Hgb 8.9 L, Hct 30.9 L, MCV 86.1, MCH 24.8 L , MCHC 28.8 L, RDW 16.1 H, RDW Differential 49.7 H, Plt Count 547 H, MPV 9.7 12/01/18 13:30: Blood Type O POSITIVE, Antibody Screen NEGATIVE, Crossmatch See Detail 12/01/18 13:30: Serum , Qual NEGATIVE 12/02/18 05:22: TIBC 160 L, Ferritin 410 H 12/02/18 05:22: WBC 9.3, RBC 3.65 L, Hgb 10.0 L, Hct 31.2 L, MCV 85.5, MCH 27.4, MCHC 32.1, RDW 16.0 H, RDW Differential 50.5 H, Plt Count 420, MPV 9.3, Differential Comment , Immature Plt Fraction 1.6, Retic Count 2.18 H, Immature Retic Fraction 14.30, Retic Hgb Equivalent 24.2 L Current Medications Acetaminophen (Tylenol) 1,000 mg PO Q8H PRN PRN PRN Reason: Mild pain or fever (>99.6F) Hydralazine HCl (Apresoline Iv) 10 mg IV Q4H PRN PRN PRN Reason: SBP > 160 Last Admin: 12/01/18 23:01 Dose: 10 mg Hydromorphone HCl (Dilaudid Inj) 0.5 - 1.5 mg IV Q3H PRN PRN PRN Reason: Moderate-Severe Pain (4-10/10) Last Admin: 12/02/18 02:26 Dose: 1 mg Ketorolac Tromethamine (Toradol) 30 mg IV Q6H [facility] Stop: 12/06/18 18:04 Last Admin: 12/02/18 05:25 Dose: 30 mg Nifedipine (Procardia Xl) 60 mg PO DAILY [facility] Last Admin: 12/02/18 09:29 Dose: 60 mg Nutritional Formula (Lactose Free) (Ensure Enlive) 120 ml PO 4X/DAY [facility] Last Admin: 12/02/18 09:29 Dose: 120 ml Ondansetron HCl (Zofran) 4 mg IV Q4H PRN PRN PRN Reason: NAUSEA Last Admin: 12/01/18 23:32 Dose: 4 mg Oxycodone HCl (Oxyir) 5 - 10 mg PO Q4H PRN PRN PRN Reason: MOD-SEVERE PAIN (4-10/10) Last Admin: 12/02/18 08:18 Dose: 10 mg [facility] ([facility]zo Standard) [facility] Last Admin: 12/02/18 09:29 Dose: 95 mg Simethicone (Mylicon) 80 mg PO [facility] Last Admin: 12/02/18 08:20 Dose: 80 mg Sodium Chloride () 5 - 15 ml IV UD PRN PRN Reason: SALINE FLUSH Medical Necessity - Tobacco Use Smoking Status: Never smoker Assessment/Plan All Active Problems (Last Reviewed 12/02/18 @ 00:39 by Adrián Bynum MD) Acute blood loss anemia (Acute) Hypertensive urgency (Acute) Pre-eclampsia (Acute) 1. Hypertensive urgency: * Improved. * Patient currently on Procardia XL 60 mg, up from her 30 mg dosing from home. Would continue with that and have her follow-up with her primary care physician the next 1-2 weeks. 2. Abdominal wall hematoma: Postop day #1 status post expiratory laparotomy. Management per gynecology. Medically stable for discharge. Will follow along during the course of the yandy ent's hospitalization for now. Discussed with family at bedside Code Visit Inpatient E&M: 60974 Subs Hosp L2
[2018-12-02] MEDS: Docusate Sodium 100 MG Capsule PO ×2 (15:31→20:58)
--- NOTE | 2018-12-02 15:40 | CASEMGMT ---
Addendum entered by Ashia Gonzalez 12/02/18 16:01: Correction patient did not have an appendectomy, patient had laparotomy for exvacuation of a hematoma. Original Note: CORRIE VICTOR Chart Review: Patient is a readmit with last date of service 11/01/18-11/03/18 for abdominal pain and abdominal hematomas. See CORRIE VICTOR Assessment from 11/02/18. Patient admitted 12/01/18 for abdominal pain and appendicitis. Plan is for home no needs anticipated at this time.
[2018-12-02] MEDS: Acetaminophen 500 MG Tablet 1000 MG PO (20:58)
[2018-12-03] MEDS: Ketorolac 30 MG/ML Syringe IV ×2 (00:13→07:00)
[2018-12-03] MEDS: 0.9% NaCl Peripheral Flush Adult/Peds IV ×2 (00:14→06:59)
[2018-12-03 03:00] VITALS: BP 122/71; PULSE 82; RESP 16; TEMP 36.5; O2SAT 100
[2018-12-03 03:59] VITALS: PULSE 100
[2018-12-03] MEDS: oxyCODONE 5 MG Tablet PO (06:57)
[2018-12-03] MEDS: Acetaminophen/Butalbital/Caffe 1 Tablet PO (06:57)
--- NOTE | 2018-12-03 07:44 | DCINST_ITS ---
Discharge Diet: No Restrictions - Increase fluid intake for the next 48 hours. Discharge Activity: Return to Normal Activity, May Drive - when you are no longer taking pain/narcotic meds., May Shower, May Take a Tub Bath - in 7 days May shower in (days): 1 May resume sexual activity in: 4 weeks Weight Bearing Status: Full weight bearing Lifting Restrictions: 20 Additional Activity Instructions:: Ambulate often the next week after surgery. Nothing in the vagina for 5 days. Call your doctor if your incision/area has: Continuous Slow Oozing, Sudden Increased Bleeding, Increased Pain/ Swelling, Increased Redness, Foul Smelling Discharge Call your doctor if you observe: Fever of 101 or Higher, Inability to have a bowel movement, Using more than one pad per hour Remove Dressing in (days):: 5 Cleanse incision/area with: Soap & Water Allergies/Adverse Reactions: Allergies No Known Allergies Allergy (Verified 11/24/18 11:33) Medications to take at Discharge NIFEdipine [Procardia XL] 30 mg PO DAILY 11/01/18 Vit/Iron Fum/Folic AC [ Tablet] 1 each PO DAILY 11/01/18 Ondansetron [Zofran Odt] 4 mg PO Q8H PRN PRN #10 tab 11/24/18 Oxycodone HCl/Acetaminophen [Percocet 5-325 mg Tablet] 1 - 2 tab PO Q6H PRN 5 Days #20 tablet 12/01/18 Pyridium 100 mg PO BID #4 12/01/18 Acetaminophen/Butalbital/Caffe [Fioricet] 1 tablet PO Q4H PRN PRN 12/03/18 The following prescriptions were given: Pyridium 100 mg PO BID #4 Oxycodone HCl/Acetaminophen [Percocet 5-325 mg Tablet] 1 - 2 tab PO Q6H PRN 5 Days #20 tablet PRN Reason: Pain Primary Care Physician: Sirena Blue MD [Primary Care Provider] - Test Results: Test results from this visit will be discussed in further detail at your follow- up appointment, if applicable. Please Follow Up With: Lucy Valenzuela MD - [phone] When: 1-2 weeks or as needed
--- NOTE | 2018-12-03 07:53 | PCM.PN.OB ---
Patient Problems: Active and Suspected Problems (Last Reviewed 12/02/18 @ 00:39 by Adrián Bynum MD) Hypertensive urgency (Acute) Pre-eclampsia (Acute) Subjective: pt seen at bedside, doing well. pt reports good pain control. some vaginal bleeding. urinating without difficulty but does feel some spasms. - Physical Exam General: Alert, Oriented x3 Abdomen: Soft, - - appropriately tender, ROSEY serosangious, pressure dressing removed- mepilex has some old dark blood, no active bleeding Vital Signs Temp Pulse Resp BP Pulse Ox 97.7 F L 100 16 122/71 H 100 12/03/18 03:00 12/03/18 03:59 12/03/18 03:00 12/03/18 03:00 12/03/18 03:00 Oxygen Delivery Method Room Air Weight: 48.2 kg Body Mass Index (BMI) 15.7 Intake and Output for Last 24 Hours 12/01/18 12/02/18 12/03/18 23:59 23:59 23:59 Intake Total 1900 / 1900 1632 / 1632 700 / 700 Output Total 630 / 630 1115 / 1115 1730 / 1730 Balance 1270 / 1270 517 / 517 -1030 / -1030 Microbiology Past 72 Hours 12/01/18 17:01 Gram Stain - Final Aspirate - Abdominal Wound Culture - Preliminary No growth-Final to follow Medical Necessity - Tobacco Use Smoking Status: Never smoker Assessment/Plan All Active Problems (Last Reviewed 12/02/18 @ 00:39 by Adrián Bynum MD) Acute blood loss anemia (Acute) Hypertensive urgency (Acute) Pre-eclampsia (Acute) POD#2 s/p ex lap removal of hematoma 1) nursing to change dressings- pt wants to remove them - will only place small amt of tape and new mepilex 2) abdominal binder 3) again reviewed importance of nutrition for healing 4) discharge instructions reviewed 5) Procardia 30xl - pt has at home 6) maintain ROSEY at discharge
--- NOTE | 2018-12-03 07:57 | PCM.DC.BLA ---
Discharge Summary Date of Admission: 12/01/18 Date of Discharge: 12/03/18 Summary: pt underwent diagnostic laparoscopy - significant adhesions appreciated so decision for exploratory laparotomy was performed with evacuation of hematoma. pt with significant adhesions and inflammation- ROSEY drain left in place. Pt received 2 u PRBC - her Hg was stable at 8 however for healing purposes decision to transfuse. pt received nutritional consult as well on POD#1. Pt discharged home in stable condition on POD#2 will follow up in office in one week. Patient Problems: Active and Suspected Problems (Last Reviewed 12/02/18 @ 00:39 by Adrián Bynum MD) Hypertensive urgency (Acute) Pre-eclampsia (Acute) - Physical Exam Vital Signs Temp Pulse Resp BP Pulse Ox 97.7 F L 100 16 122/71 H 100 12/03/18 03:00 12/03/18 03:59 12/03/18 03:00 12/03/18 03:00 12/03/18 03:00 Oxygen Delivery Method Room Air Weight: 48.2 kg Body Mass Index (BMI) 15.7 Intake and Output for Last 24 Hours 12/01/18 12/02/18 12/03/18 23:59 23:59 23:59 Intake Total 1900 / 1900 1632 / 1632 700 / 700 Output Total 630 / 630 1115 / 1115 1730 / 1730 Balance 1270 / 1270 517 / 517 -1030 / -1030 Microbiology Past 72 Hours 12/01/18 17:01 Gram Stain - Final Aspirate - Abdominal Wound Culture - Preliminary No growth-Final to follow
[2018-12-03 08:00] VITALS: PULSE 89
[2018-12-03 09:30] VITALS: O2SAT 100
--- NOTE | 2018-12-03 09:31 | PCM.PN.HOSP ---
Patient Problems: Active and Suspected Problems (Last Reviewed 12/02/18 @ 00:39 by Adrián Bynum MD) Hypertensive urgency (Acute) Pre-eclampsia (Acute) Subjective: No new events. Vitals/I&O's: Vital Signs Temp Pulse Resp BP Pulse Ox 36.5 C L 100 16 122/71 H 100 12/03/18 03:00 12/03/18 03:59 12/03/18 03:00 12/03/18 03:00 12/03/18 03:00 Oxygen Delivery Method Room Air Weight: 48.2 kg Body Mass Index (BMI) 15.7 Intake and Output for Last 24 Hours 12/01/18 12/02/18 12/03/18 23:59 23:59 23:59 Intake Total 1900 / 1900 1632 / 1632 700 / 700 Output Total 630 / 630 1115 / 1115 1730 / 1730 Balance 1270 / 1270 517 / 517 -1030 / -1030 General: Alert, No apparent distress HEENT: Atraumatic, Normocephalic Psych/Mental Status: Normal Affect, Appropriate Microbiology Past 72 Hours 12/01/18 17:01 Aspirate - Abdominal Gram Stain - Final 12/01/18 17:01 Aspirate - Abdominal Wound Culture - Preliminary No growth-Final to follow Current Medications Acetaminophen (Tylenol) 1,000 mg PO Q8H PRN PRN PRN Reason: Mild pain or fever (>99.6F) Last Admin: 12/02/18 20:58 Dose: 1,000 mg Docusate Sodium (Colace) 100 mg PO BID [facility] Last Admin: 12/02/18 20:58 Dose: 100 mg Hydralazine HCl (Apresoline Iv) 10 mg IV Q4H PRN PRN PRN Reason: SBP > 160 Last Admin: 12/01/18 23:01 Dose: 10 mg Hydromorphone HCl (Dilaudid Inj) 0.5 - 1.5 mg IV Q3H PRN PRN PRN Reason: Moderate-Severe Pain (4-10/10) Last Admin: 12/02/18 18:13 Dose: 1 mg Ketorolac Tromethamine (Toradol) 30 mg IV Q6H NADJA Stop: 12/06/18 18:04 Last Admin: 12/03/18 07:00 Dose: 30 mg Nifedipine (Procardia Xl) 60 mg PO DAILY [facility] Last Admin: 12/02/18 09:29 Dose: 60 mg Nutritional Formula (Lactose Free) (Ensure Enlive) 120 ml PO 4X/DAY [facility] Last Admin: 12/02/18 20:58 Dose: 120 ml Ondansetron HCl (Zofran) 4 mg IV Q4H PRN PRN PRN Reason: NAUSEA Last Admin: 12/01/18 23:32 Dose: 4 mg Oxycodone HCl (Oxyir) 5 - 10 mg PO Q4H PRN PRN PRN Reason: MOD-SEVERE PAIN (4-10/10) Last Admin: 12/03/18 06:57 Dose: 10 mg Phenazopyridine HCl (Azo Standard) [facility] Last Admin: 12/02/18 17:14 Dose: 95 mg Simethicone (Mylicon) 80 mg PO [facility] Last Admin: 12/02/18 20:58 Dose: 80 mg Sodium Chloride () 5 - 15 ml IV UD PRN PRN Reason: SALINE FLUSH Last Admin: 12/03/18 06:59 Dose: 10 ml Medical Necessity - Tobacco Use Smoking Status: Never smoker Assessment/Plan All Active Problems (Last Reviewed 12/02/18 @ 00:39 by Adrián Bynum MD) Acute blood loss anemia (Acute) Hypertensive urgency (Acute) Pre-eclampsia (Acute) 1. Hypertensive urgency: Improved. Patient currently on Procardia XL 60 mg, up from her 30 mg dosing from home. Would continue with that and have her follow-up with her primary care physician the next 1-2 weeks. Script sent to her pharmacy for for the new Procardia dosing. 2. Abdominal wall hematoma: Postop day #1 status post expiratory laparotomy. Management per gynecology. Medically stable for discharge. Will follow along during the course of the patient's hospitalization for now. Discussed with family at bedside Code Visit Inpatient E&M: 85048 Subs Hosp L1
[2018-12-03 09:33] VITALS: BP 123/78; PULSE 81; RESP 14; TEMP 36.8; O2SAT 100
[2018-12-03] MEDS: Acetaminophen 500 MG Tablet 1000 MG PO (09:41)
[2018-12-03] MEDS: Docusate Sodium 100 MG Capsule PO (09:43)
[2018-12-03] MEDS: Phenazopyridine 95 MG Tablet PO (09:44)
[2018-12-03] MEDS: NIFEdipine 60 MG Tablet PO (09:44)
[2018-12-03 10:59] VITALS: BP 123/78; PULSE 81; RESP 14; TEMP 36.8; O2SAT 100
== END 2018-12-03 12:00 | disposition home or self-care (01) | DRG 951 ==
LOC: SDC 17:24 → MS3 12-02 00:14
PROVIDERS: Admitting Provider Obstetrics & Gynecology; Family Provider Pediatrics; PCP Pediatrics; Referring Provider Obstetrics & Gynecology; Visit Provider Obstetrics & Gynecology
PROC: 0WCG0ZZ Extirpation of Matter from Peritoneal Cavity, Open Approach (ICD-10-PCS; CPT 49320; principal; 2018-12-01 14:15)
DX: O72.2 Delayed and secondary postpartum hemorrhage; O90.81 Anemia of the puerperium; D50.9 Iron deficiency anemia, unspecified; O16.5 Unspecified maternal hypertension, complicating the puerperium; I16.0 Hypertensive urgency; Z53.31 Laparoscopic surgical procedure converted to open procedure
CPT/HCPCS: 36415; 82728; 83550; 84703; 85027; 85045; 86850; 86900; 86920; 87070; 87075; 87077; 87186; 87205; 88304; 97802; J1756; J7040; J7120; P9016; A4216; J2405

== ENCOUNTER 2018-12-14 03:31 | Emergency (ER) | payer OTHER, MEDICAID, SELFPAY ==
[2018-12-01 22:34] VITALS: BMI 15.7
[2018-12-14 03:32] VITALS: BP 163/101; PULSE 91; RESP 17; TEMP 36.4; O2SAT 100; BMI 15.4
--- NOTE | 2018-12-14 03:42 | ED.RN ---
RN CALLED FOR EKG, PULLED OLD EKGS FOR
--- NOTE | 2018-12-14 03:53 | EKG12_ITS ---
Test Reason : CP Blood Pressure : / mmHG Vent. Rate : 088 BPM Atrial Rate : 088 BPM P-R Int : 156 ms QRS Dur : 088 ms QT Int : 368 ms P-R-T Axes : 066 018 058 degrees QTc Int : 445 ms Normal sinus rhythm Normal ECG When compared with ECG of 21-OCT-2018 06:26, No significant change was found Confirmed by YUSUF BROWN, BABAR ([id number]), material expeditor REJI CORRAL ([id number]) on 12/26/2018 5:25:04 PM Referred By: SHIRLEY Confirmed By:BABAR GOLDBERG MD
--- NOTE | 2018-12-14 03:53 | CT_ITS ---
STUDY: CTA CHEST REASON FOR EXAM: Female, 23 years old. Chest pain and abdominal pain. History of on 10/19/2018, with associated fluid collection. Drains were removed from the pelvis on 12/13/2018. RADIATION DOSAGE (If Supplied By Facility): CTDIvol = ( 6.79 ) mGy, DLP = ( 551.61 ) mGycm TECHNIQUE: The examination was performed with the intravenous administration of 75ml IV Isovue 370. Post-processing of the angiographic images was performed, with multiplanar reformation, but without 3D reconstruction. Individualized dose optimization techniques were used for this CT. COMPARISON: CT scan abdomen and pelvis done today. CTA chest 11/01/2018. FINDINGS: There is a small low-attenuation nodule in the left lobe of the thyroid gland. Normal enhancement of the main pulmonary artery and right and left pulmonary arteries. Normal enhancement of the bilateral peripheral pulmonary arteries. There is no demonstrated pulmonary embolism. Normal thoracic aorta and visualized great vessels. There is no demonstrated aortic dissection. Normal heart and pericardium. Normal mediastinum. Normal hilar regions. Normal visualized trachea and bronchi. The lungs are well expanded. Normal pulmonary parenchyma. Normal pleura. Normal chest wall structures. Normal osseous structures. Normal visualized upper abdomen. CT/CTA Chest W/WO Contrast IMPRESSION: Normal CTA chest examination, without a demonstrated pulmonary embolism or arterial dissection. No evidence for acute cardiopulmonary pathology. Incidental finding of a small thyroid nodule. Suggest elective follow-up thyroid ultrasound. Electronically Signed: Sunday Edwards MD at 5:07 EDT , Service support ,
--- NOTE | 2018-12-14 03:53 | CT_ITS ---
STUDY: CT ABDOMEN AND PELVIS WITHOUT CONTRAST REASON FOR EXAM: Female, 23 years old. Chest pain and abdominal pain. Status post on 10/19/2018. Drains were removed on 12/13/2018. RADIATION DOSAGE (If Supplied By Facility): CTDIvol = ( 6.79 ) mGy, DLP = ( 551.61 ) mGycm TECHNIQUE: Transaxial images were obtained from the dome of the diaphragm to the symphysis pubis without oral contrast, and without intravenous contrast. Sagittal and coronal images were reconstructed. Individualized dose optimization techniques were used for this CT. COMPARISON: CT scan abdomen and pelvis 11/24/2018. FINDINGS: The visualized lung bases are unremarkable. The visualized portions of the heart are within normal limits. Normal liver. Normal gallbladder and extrahepatic biliary system. There is mild splenomegaly, which may be a normal finding. Normal pancreas. Normal bilateral adrenal glands. Normal right kidney. Normal left kidney. Normal visualized stomach. Normal small intestine. Normal colon. There is non-visualization of the appendix. Normal abdominal aorta. Normal inferior vena cava. Normal retroperitoneum. Normal urinary bladder. The uterus is tilted to the right. To the left of the uterus, there is a 5.6 x 5.2 x 5.4 cm low-attenuation cystic structure, comprising about 80 mL of fluid, which is new or larger than it was on previous exam. Finding is of indeterminate etiology, possibly representing a left ovarian cyst. Anterior to the uterus, extending into the right lower quadrant of the abdomen, there is a 7 x 3.6 x 8 cm complex cystic structure containing heterogeneous fluid as well as bubbles of air (axial images 75-93). There is tentative identification of a thin fistulous tract extending from this collection into the overlying right pelvic rectus abdominis muscle. There may indicate that this is an abscess or may represent area that was introduced via a recent previous surgical drain.. This collection comprises roughly 70 mL of fluid, and it is much smaller than it was on previous study. A small amount of free fluid in the posterior pelvis. There is also minimal free fluid in Morison's pouch. As described above, there is a small amount of fluid extending into the right para midline pelvic rectus abdominis muscle, potentially representing fistulous tract and consistent with previous site of a surgical drain. Normal osseous structures. CT/Abdomen/Pelvis W IV Cont ONLY IMPRESSION: Approximately 70 mL collection of complex fluid and air anterior to the uterus and extending into the right lower quadrant of the abdomen. This is the fluid collection was previously drained and it is much smaller than it was on the previous study. Air within this collection may have been introduced via the drainage catheter or it may indicate presence of an abscess. There is a residual fistulous tract extending from this collection into the right rectus abdominis muscle, in the course of previously placed catheter. New finding of an 80 mL low-attenuation cystic structure in the left posterior pelvis, possibly representing ovarian cyst. Small amount of free fluid in the posterior pelvis. Minimal ascites in the right upper abdomen. Electronically Signed: Sunday Edwards MD at 5:01 EDT , Service support ,
[2018-12-14] MEDS: 0.9% Normal Saline 1,000 ML 1000 ML IV (04:01)
[2018-12-14] MEDS: Ondansetron 4 MG/2 ML Vial IV (04:01)
[2018-12-14] MEDS: Morphine 4 MG/ML Syringe IV (04:02)
[2018-12-14 04:12] LABS: Absolute Lymphocyte Count 3.33 X10^3/ul (0.83-4.51); Absolute Neutrophil Count 4.9 X10^3/uL (2.0-7.7); Basophil# 0.04 X10^3/uL; Basophil% 0.4 % (0-1); Eosinophils% 2.2 % (0-5); Hematocrit 38.8 % (37-47); Lymphocyte # 3.33 X10^3/ul (4.0); Lymphocyte % 37.5 % (19-41); Mean Corp Hgb Conc 30.9 g/gl (32-36); Mean Corpuscular Hgb 26.5 pg (27.0-32.0); Mean Corpuscular Volume 85.7 fL (81-99); Mean Platelet Vol. 10.2 fl (6.2-12.0); Monocyte# 0.45 X10^3/uL; Monocyte% 5.1 % (0-10); Neutrophil # 4.86 X10^3/uL (2.7-7.7); Neutrophil % 54.7 % (47-70); POSITIVE COUNT NO; POSITIVE DIFFERENTIAL NO; POSITIVE MORPHOLOGY NO; Platelet Count 401 K/mm3 (150-450); RBC Distribution Width CV 16.4 % (11.6-14.6); RBC Distribution Width SD 51.9 fl (35.1-43.9); Red Blood Count 4.53 M/mm3 (4.2-5.4); White Blood Count 8.9 K/mm3 (4.4-11.0)
[2018-12-14 04:20] LABS: International Normalized Ratio 1.1; Partial Thromboplast Time 38.7 Seconds (24.1-36.2); Prothrombin Time (Protime)PT. 13.8 SECONDS (11.7-14.9)
[2018-12-14 04:32] LABS: Anion Gap 7 (5-15); BUN 14 mg/dL (7-18); BUN/Creat Ratio 18.9 RATIO (10-20); Calcium,Total 9.1 mg/dL (8.5-10.1); Chloride 106 mmol/L (98-107); Creatinine, Serum 0.74 mg/dL (0.55-1.02); EST Glomerular Filtration Rate 104 mL/min (>60); Est Glom Filt Rate - Afr Amer 126 mL/min (>60); Glucose 92 mg/dL (74-106); Lipase 197 U/L (73-393); Potassium 3.9 mmol/L (3.5-5.1); Sodium Level 141 mmol/L (136-145)
[2018-12-14 04:34] LABS: AST(SGOT) 139 U/L (15-37); Alanine Aminotransfer ALT/SGPT 42 U/L (13-56); Alkaline Phosphatase 247 U/L (45-117); Bilirubin, Direct 0.15 mg/dL (0.00-0.30); Globulin 5.7 g/dL (2.2-4.2); Protein, Total 8.7 g/dL (6.4-8.2)
[2018-12-14] MEDS: HYDROmorphone 1 MG/ML Syringe IV (04:56)
[2018-12-14 05:35] VITALS: BP 108/68; PULSE 80; RESP 16; O2SAT 100
--- NOTE | 2018-12-14 05:36 | ED.DCSUM_ITS ---
- ER Visit Summary Date of Service: 12/14/18 Chief Complaint: Chest pain History of Present Illness: The patient is a 23 F who presents with chest pain. This began about 6-7 hours before presentation. She describes it as both tightness and sharp. It is in the center of her chest radiating through to her back. It was 10 out of 10 although currently is 6 out of 10. She also had 2 episodes of nonbloody nonbilious emesis. She also complains of lower abdominal and lower back pain. She does report ongoing dysuria for about 1 month. She had a on 10/19/2018 due to severe preeclampsia. This was complicated by postop ileus and electrolyte derangements. She also had anemia. She had an intra-abdominal hematoma. Initially this was drained by radiology. She then returned went to the operating room. She just had her drain removed yesterday. Physical Examination: Blood pressure 163/101 vitals otherwise unremarkable Moist mucous membranes Heart regular rate and rhythm Lungs are clear Abdomen soft nondistended lower abdominal incision clean dry intact Alert Test Results: EKG shows normal sinus rhythm at a rate of 88. CBC BMP unremarkable. Alkaline phosphatase 247, AST 139. Lipase normal. Coagulation studies normal. Troponin negative. CTA of the chest is normal except for incidental thyroid nodule. CT of the abdomen shows a 70 mL complex collection anterior to the uterus extending down to the right lower quadrant overall decreased in size from prior. Air is noted. There is new 80 mL cystic structure in the left posterior pelvis. Emergency Department Course and Treatment: Patient was treated with IV morphine and then I Dilaudid here. On reevaluation she is resting comfortably and symptoms are improved. Imaging as above. Overall the fluid collection anterior to the uterus is decreased in size. Air may be related to recent drain removal. However abscess cannot be ruled out. The new left-sided pelvic cystic structure could be ovarian cyst. I discussed these findings with Dr. Valenzuela. Clinically my suspicion for infection is low given lack of fever tachycardia leukocytosis. She notes that even if this is abscess or new fluid collection in the left side of pelvis there is little else that can be done at this time surgically. She recommended symptom control and follow-up as an outpatient. Patient is agreeable to this plan. She was given a prescription for Percocet. She understands to return for new or worsening symptoms. Patient discharged. Treatment Plan: [] Disposition: Discharge Impression: Abdominal pain Chest pain Intra-abdominal fluid collection This note was generated with [employer]: online [employer] dictation software. It may contain incorrect words, spelling, and punctuation that were not noted in review of the chart prior to signing ED Disposition - Plan for ED Patient: Referrals: Kyung Nguyen MD [Primary Care Provider] -
--- NOTE | 2018-12-14 05:36 | ED.DEP ---
ED Disposition - Plan for ED Patient: Instructions: ED Chest Pain NonCardiac Prescriptions: Oxycodone HCl/Acetaminophen [Percocet 5/325] 1 tab PO Q6H PRN PRN 3 Days #12 tab PRN Reason: Pain Referrals: Kyung Nguyen MD [Primary Care Provider] - Lucy Valenzuela MD [STAFF PHYSICIAN] -
== END 2018-12-14 05:54 | disposition home or self-care (01) ==
LOC: ED 04:05
PROVIDERS: Emergency Provider Emergency Medicine; Family Provider Internal Medicine; PCP Internal Medicine
DX: R07.9 Chest pain, unspecified (principal); R10.30 Lower abdominal pain, unspecified; R19.00 Intra-abdominal and pelvic swelling, mass and lump, unspecified site; I10 Essential (primary) hypertension
CPT/HCPCS: 71275; 74177; 80048; 80076; 83690; 84484; 85025; 85610; 85730; 93005; 96361; 96374; 96375; 99284; J7030; Q9967; A4216; J2405

== ENCOUNTER → 2020-08-05 16:07 | Outpatient (CLI) | payer OTHER, SELFPAY ==
[2020-08-05 12:48] VITALS: BMI 16.7
== END ==
PROVIDERS: PCP Internal Medicine; Visit Provider Physician Assistant
DX: Z20.828 Contact with and (suspected) exposure to other viral communicable diseases (principal)
CPT/HCPCS: 87635; U0003

== ENCOUNTER 2020-08-31 06:03 | Emergency (ER) | payer OTHER, SELFPAY ==
[2020-08-05 12:48] VITALS: BMI 16.7
[2020-08-31 06:04] VITALS: BP 126/94; PULSE 78; RESP 22; TEMP 36.1; O2SAT 100; BMI 16.6
--- NOTE | 2020-08-31 06:05 | CT_ITS ---
STUDY: CT ABDOMEN AND PELVIS WITH CONTRAST REASON FOR EXAM: Female, 25 years old. RLQ PAIN, N/V RADIATION DOSAGE (If Supplied By Facility): CTDIvol = ( 7.39 ) mGy, DLP = ( 238.58 ) mGycm TECHNIQUE: Transaxial images were obtained from the dome of the diaphragm to the symphysis pubis with oral contrast. 100 mL ISOVUE-300 was administered. Sagittal and coronal images were reconstructed. Individualized dose optimization techniques were used for this CT. COMPARISON: None. FINDINGS: The visualized lung bases are unremarkable. The visualized portions of the heart are within normal limits. Normal liver. The gallbladder is contracted. Normal spleen. Normal pancreas. Normal bilateral adrenal glands. Normal right kidney. Normal left kidney. Normal visualized stomach. Normal small intestine. Normal colon. The appendix is not identified although a dilated tubular structure is NOT seen. Normal abdominal aorta. Normal inferior vena cava. Normal retroperitoneum. Normal urinary bladder. Normal visualized uterus. Small amount of free fluid in the right lower quadrant pelvis appears to be predominantly centered around the right ovary. There is a small cystic structure of the right adnexa measuring 1.9 cm Normal abdominal wall. Normal osseous structures. CT/Abdomen/Pelvis WITH Contrast IMPRESSION: 1. 1.9 cm right adnexal cyst with right lower quadrant and pelvic free fluid. Nonvisualization of the appendix. Differential considerations favor ectopic (correlate with test/hCG, pelvic ultrasound) or adnexal/ovarian cyst (correlate with pelvic ultrasound), although appendicitis is also the differential diagnosis (felt to be less likely). Electronically Signed: Vernon Reyes MD (Brooks) at 8:16 EST , Service support ,
[2020-08-31 06:07] VITALS: BP 126/94; PULSE 78; RESP 22; TEMP 36.1; O2SAT 100
--- NOTE | 2020-08-31 06:11 | ED.VISSUMM ---
- ER Visit Summary Date of Service: 08/31/20 Chief Complaint: Abdominal pain History of Present Illness: The patient is a 25 F presenting with right lower quadrant abdominal pain. Patient states this started last night. She states initially she thought she had menstrual cramps. She tried Midol. She states the pain progressively worsened. Pain is now in the right lower quadrant. She has had nausea and vomiting. She has had decreased appetite. Denies diarrhea. Denies fever. Denies urinary complaints. Denies possibility of . Denies other complaints. Physical Examination: Vitals are stable. Patient is afebrile. Alert no acute distress. HEENT exam is unremarkable. Neck is supple. Lungs are clear and equal bilaterally. Heart is regular rate and rhythm. Abdomen is soft right lower quadrant tenderness with voluntary guarding, no rebound Extremities are unremarkable. Skin is warm and dry. Remainder of exam is unremarkable. Emergency Department Course and Treatment: Patient was given IV fluids, morphine, Zofran. CBC, chemistries unremarkable. hCG negative. Covid negative. CT abdomen pelvis is pending and will be checked out to the oncoming physician. Patient had improvement of her pain on reevaluation. Disposition: Pending Impression: Right lower quadrant pain This note was generated with [employer] dictation software. It may contain incorrect words, spelling, and punctuation that were not noted in review of the chart prior to signing ED Disposition - Plan for ED Patient: Referrals: Kyung Nguyen MD [Primary Care Provider] -
[2020-08-31] MEDS: Ondansetron 4 MG/2 ML Vial IV (06:21)
[2020-08-31] MEDS: Morphine 4 MG/ML Syringe IV (06:21)
[2020-08-31 06:24] LABS: Basophil# 0.01 X10^3/uL; Basophil% 0.1 % (0-1); Eosinophil# 0.01 X10^3/uL; Eosinophils% 0.1 % (0-5); Hematocrit 42.7 % (37-47); Hemoglobin 13.4 g/dL (12.0-15.0); Lymphocyte % 20.8 % (19-41); Mean Corp Hgb Conc 31.4 g/dL (32-36); Mean Corpuscular Volume 86.1 fL (81-99); Mean Platelet Vol. 10.8 fl (6.2-12.0); Monocyte# 0.25 X10^3/uL; Monocyte% 3.7 % (0-10); NRBC Flagged by Analyzer 0 % (0-5); Neutrophil # 5.04 X10^3/uL (2.7-7.7); Platelet Count 193 K/mm3 (150-450); RBC Distribution Width CV 13.4 % (11.6-14.6); Red Blood Count 4.96 M/mm3 (4.2-5.4); White Blood Count 6.7 K/mm3 (4.4-11.0)
[2020-08-31 06:47] LABS: Internal QC Validated? YES +Cl - CLEAR BKGD
[2020-08-31 06:48] LABS: Pregnancy, Serum, hCG Quali. NEGATIVE Negative
[2020-08-31 06:50] LABS: ALB/GLOB Ratio 1.3 RATIO (0.9-2.4); AST(SGOT) 15 U/L (15-37); Alanine Aminotransfer ALT/SGPT 26 U/L (13-56); Albumin, Serum 4.5 g/dL (3.2-5.0); Alkaline Phosphatase 79 U/L (45-117); Anion Gap 3 (5-15); BUN 10 mg/dL (7-18); Calcium,Total 8.9 mg/dL (8.5-10.1); Chloride 110 mmol/L (98-107); Creatinine, Serum 0.84 mg/dL (0.55-1.02); EST Glomerular Filtration Rate 89 mL/min (>60); Est Glom Filt Rate - Afr Amer 108 mL/min (>60); Estimated Creatinine Clearance 81.56 ml/min; Globulin 3.4 g/dL (2.2-4.2); Glucose 117 mg/dL (74-106); Potassium 3.6 mmol/L (3.5-5.1); Protein, Total 7.9 g/dL (6.4-8.2); Sodium Level 138 mmol/L (136-145)
[2020-08-31 08:51] LABS: Bacteria 0 SEEN /hpf (None Seen); Mucous, Urine 0 SEEN /hpf (<or=2+); White Blood Cells 0 SEEN /hpf (0-5)
[2020-08-31 08:53] LABS: Color, Urine Yellow (Yellow); Glucose, Dipstick Normal (Normal); Ketone-Dipstick Negative (Negative); Leukocyte Esterase-Dipstick Negative /ul (Negative); Nitrite-Dipstick Negative (Negative); Occult Blood-Urine 250 /ul (Negative); Protein-Dipstick Negative (Negative); Urine Bilirubin Dipstick Negative (Negative); Urine Clarity Clear (Clear); Urine Urobilinogen Normal (Normal); Urine pH 6.5 (5.0 - 8.0)
[2020-08-31 08:58] LABS: Red Blood Cells-Urine 10-25 SEEN /hpf (0-5); Squamous Epithelial Cells - UA 0-5 SEEN /hpf (5-10)
[2020-08-31] MEDS: Ketorolac 30 MG/ML Syringe IV (10:44)
[2020-08-31 11:42] VITALS: PULSE 60; RESP 15; O2SAT 100
== END 2020-08-31 11:43 | disposition home or self-care (01) ==
PROVIDERS: Emergency Provider Emergency Medicine; PCP Internal Medicine
DX: N83.201 Unspecified ovarian cyst, right side (principal); R10.31 Right lower quadrant pain
CPT/HCPCS: 74177; 80053; 81001; 84703; 85025; 87426; 96361; 96374; 96375; 99283; J7030; Q9967; A4216; J2405

== ENCOUNTER 2021-03-12 15:00 | Outpatient (RCR) | payer OTHER, SELFPAY ==
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
--- NOTE | 2021-07-14 07:16 | HP.PT.NRP ---
KANALONSO STUART was seen in my office for initial evaluation on 02/05/21. The following Plan of Care was established for this patient: Initial Frequency: 2x /Week Initial Duration: 4 Weeks Patient/Client Instruction: Educate patient on: Benefits of Fitness Program Therapeutic Exercise to Include: Strength training, Endurance training, Balance training, Coordination, Agility training, Body mechanics, Postural training, Flexibilty training, Gait and locomotor training, Neuromotor development, Passive ROM, Active ROM, Dynamic Lumbar Stabilization, Scapular Strength/Stabilization For the Purpose of:: To improve muscle performance and motor function TENS: Yes Cryotherapy (ice pack, ice massage): Yes Thermo therapy (hot pack): Yes This patient was last seen in our office . Pertinent comments regarding their Physical therapy will appear below: Patient has not attended PT in over 4 weeks and is appropriate for discharge- return to MD for further evaluation as needed. At this point I will be discontinuing this patient from physical therapy. I would be happy to see this patient again in the future if found appropriate by the physician. Thank you! Melodie Ta DPT Balance/Gait/Functional tests - Balance/Special Test Scores Lower Extremity Functional Score: 35
== END 2021-03-12 19:00 | disposition home or self-care (01) ==
LOC: PT 15:00
PROVIDERS: PCP Internal Medicine
DX: S72.001D Fracture of unspecified part of neck of right femur, subsequent encounter for closed fracture with routine healing (principal); X58.XXXD Exposure to other specified factors, subsequent encounter
CPT/HCPCS: 97110; 97162; 97164